=== PATIENT | male | born 1935 | race Caucasian/White ===

== ENCOUNTER → 2016-06-20 | Outpatient (CLI) | payer MEDICARE, BC ==
--- NOTE | 2016-06-21 08:12 | XR ---
EXAMINATION TYPE: XR chest 2V DATE OF EXAM: 06/20/2016 9:26 AM COMPARISON: 10/01/2014 HISTORY: 80-year-old male chronic cough TECHNIQUE: Frontal and lateral views FINDINGS: The cardiomediastinal silhouette, aorta, and pulmonary vasculature are within normal limits. Some str danica atelectasis at the lower lungs. Linear density at the left hilar region probably some scarring. Otherwise, lungs and pleural spaces are clear. IMPRESSION: No acute cardiopulmonary process.
== END | disposition home or self-care (01) ==
LOC: RADXRYALE 09:10
PROVIDERS: ATTEND Family Medicine
DX: R05 Cough (principal)
CPT/HCPCS: 71020

== ENCOUNTER 2016-07-01 10:56 | Inpatient (IN) | payer MEDICARE, BC ==
--- NOTE | 2016-07-01 11:41 | ED ---
General Adult HPI - General Chief complaint: Dizziness Stated complaint: chest pain,shaky, dizziness Time Seen by Provider: 07/01/16 11:06 Source: patient Mode of arrival: wheelchair Limitations: no limitations - History of Present Illness Initial comments: This patient is a 80-year-old man who presents to be evaluated for a feeling of dizziness and "feeling vibratey", and has been going on since this morning. Patient states that he has been under little bit of stress due to the patient's son moving in with him. The patient states that he usually takes his blood pressure medication first thing, then goes and takes a shower. Today he went into the shower before taking the medication and he noted that he was feeling somewhat off balance and also had a sensation like he was vibrating. He denies tanya chest pain, dyspnea, diaphoresis, nausea or vomiting. Patient denies any frankly strokelike symptoms, including no change in vision, speech or swallowing , no weakness or numbness. Onset/Timin -: hour(s) - Related Data Home Medications Medication Instructions Recorded Confirmed Aspirin 81 mg PO DAILY 10/16/14 07/01/16 Hydrochlorothiazide [Hydrodiuril] 25 mg PO QAM 10/16/14 07/01/16 Lansoprazole [Prevacid] 15 mg PO BID 10/16/14 07/01/16 Rosuvastatin Calcium [Crestor] 5 mg PO Q48H 10/16/14 07/01/16 Tamsulosin HCl [Flomax] 0.4 mg PO DAILY 10/16/14 07/01/16 amLODIPine [Norvasc] 2.5 mg PO HS 10/16/14 07/01/16 Previous Rx's Medication Instructions Recorded Clopidogrel [Plavix] 75 mg PO DAILY #90 tab 10/17/14 Allergies Allergy/AdvReac Type Severity Reaction Status Date / Time acetaminophen Allergy Unknown Verified 07/01/16 12:16 [From Darvocet-N 100] albuterol [From Ventolin HFA] Allergy Unknown Verified 07/01/16 12:16 amoxicillin trihydrate Allergy Itching Verified 07/01/16 12:16 [From Augmentin] atorvastatin calcium Allergy Unknown Verified 07/01/16 12:16 [From Lipitor] cephalexin monohydrate Allergy Nausea & Verified 07/01/16 12:16 [From Keflex] Vomiting codeine Allergy Unknown Verified 07/01/16 12:16 diazepam [From Valium] Allergy Unknown Verified 07/01/16 12:16 esomeprazole magnesium Allergy Unknown Verified 07/01/16 12:16 [From Nexium] guaifenesin [From Entex LA] Allergy Unknown Verified 07/01/16 12:16 hydromorphone HCl Allergy Nausea & Verified 07/01/16 12:16 [From Dilaudid] Vomiting metoclopramide [From Reglan] Allergy Unknown Verified 07/01/16 12:16 orphenadrine [From Norflex] Allergy Unknown Verified 07/01/16 12:16 phenylephrine [From Entex LA] Allergy Unknown Verified 07/01/16 12:16 phenylpropanolamine Allergy Unknown Verified 07/01/16 12:16 [From Entex LA] potassium clavulanate Allergy Itching Verified 07/01/16 12:16 [From Augmentin] potassium iodide Allergy Unknown Verified 07/01/16 12:16 propoxyphene napsylate Allergy Unknown Verified 07/01/16 12:16 [From Darvocet-N 100] Sulfa (Sulfonamide Allergy Nausea & Verified 07/01/16 12:16 Antibiotics) Vomiting tolmetin [From Tolectin] Allergy Unknown Verified 07/01/16 12:16 ANTIHISTAMINES AdvReac Unknown Uncoded 07/01/16 10:58 Review of Systems ROS Statement: Those systems with pertinent positive or pertinent negative responses have been documented in the HPI. ROS Other: All systems not noted in ROS Statement are negative. Constitutional: Denies: fever, chills, weakness Eyes: Denies: eye pain, vision change ENT: Denies: congestion Respiratory: Denies: cough, dyspnea Cardiovascular: Denies: chest pain, palpitations, orthopnea, edema Gastrointestinal: Denies: abdominal pain, nausea, vomiting Genitourinary: Denies: dysuria, hematuria Musculoskeletal: Denies: back pain Skin: Denies: rash Neurological: Denies: headache, weakness, numbness Psychiatric: Reports: anxiety Past Medical History Past Medical History: COPD, Hyperlipidemia, Hypertension History of Any Multi-Drug Resistant Organisms: None Reported Past Surgical History: Heart Catheterization With Stent Additional Past Surgical History / Comment(s): hemmorroids, blephplasty, left shoulder, cataract Past Psychological History: No Psychological Hx Reported Smoking Status: Never smoker Past Alcohol Use History: None Reported Past Drug Use History: None Reported - Past Family History Father Additional Family Medical History / Comment(s): emphysema General Exam Limitations: no limitations General appearance: alert, in no apparent distress Head exam: Present: atraumatic, normocephalic Eye exam: Present: normal appearance. Absent: scleral icterus, conjunctival injection ENT exam: Present: normal oropharynx Neck exam: Present: normal inspection Respiratory exam: Present: normal lung sounds bilaterally. Absent: respiratory distress, wheezes, rales, rhonchi, stridor Cardiovascular Exam: Present: normal rhythm, bradycardia (Heart rate is 56 at my exam), normal heart sounds. Absent: systolic murmur, diastolic murmur, rubs , gallop GI/Abdominal exam: Present: soft. Absent: distended, tenderness, guarding, rebound, mass, pulsatile mass, hernia Extremities exam: Present: normal inspection, normal capillary refill. Absent: pedal edema, calf tenderness Back exam: Present: normal inspection. Absent: CVA tenderness (R), CVA tenderness (L) Neurological exam: Present: alert, oriented X3, CN II-XII intact. Absent: motor sensory deficit Skin exam: Present: warm, dry, intact, normal color. Absent: rash, cyanosis, diaphoretic, erythema, petechiae, pallor, mottled Course Vital Signs 07/01/16 07/01/16 07/01/16 10:59 11:40 12:28 Temperature 97.2 F L Pulse Rate 59 L 42 L 47 L Respiratory 17 20 16 Rate Blood Pressure 135/64 142/74 159/98 O2 Sat by Pulse 97 95 98 Oximetry 07/01/16 13:24 Temperature 98 F Pulse Rate 52 L Respiratory 16 Rate Blood Pressure 158/81 O2 Sat by Pulse 98 Oximetry EKG Findings - EKG Results: EKG: interpreted by ERMD, sinus rhythm, normal QRS EKG shows: bradycardia (Rate approximate 47 bpm) - Blocks, [place], Hypertrophy, ST Abn: QRS axis and voltage: left axis deviation (-30 to -90) Repolarization changes or abnormalities: nonspecific abnormality, ST segment, and/or T wave Medical Decision Making - Lab Data Result diagrams: 07/01/16 11:16 07/01/16 11:16 Lab Results 07/01/16 07/01/16 07/01/16 Range/Units 11:16 11:16 11:16 WBC 8.2 (3.8-10.6) k/uL RBC 4.42 (4.30-5.90) m/uL Hgb 14.8 (13.0-17.5) gm/dL Hct 43.3 (39.0-53.0) % MCV 98.1 (80.0-100.0) fL MCH 33.4 (25.0-35.0) pg MCHC 34.1 (31.0-37.0) g/dL RDW 14.5 (11.5-15.5) % Plt Count 179 (150-450) k/uL Neutrophils % 70 % Lymphocytes % 22 % Monocytes % 6 % Eosinophils % 1 % Basophils % 1 % Neutrophils # 5.8 (1.3-7.7) k/uL Lymphocytes # 1.8 (1.0-4.8) k/uL Monocytes # 0.5 (0-1.0) k/uL Eosinophils # 0.1 (0-0.7) k/uL Basophils # 0.1 (0-0.2) k/uL Sodium 143 (137-145) mmol/L Potassium 3.8 (3.5-5.1) mmol/L Chloride 106 (98-107) mmol/L Carbon Dioxide 25 (22-30) mmol/L Anion Gap 12 mmol/L BUN 15 (9-20) mg/dL Creatinine 1.00 (0.66-1.25) mg/dL Est GFR (MDRD) Af Amer >60 (>60 ml/min/1.73 sqM) Est GFR (MDRD) Non-Af >60 (>60 ml/min/1.73 sqM) Glucose 83 (74-99) mg/dL Calcium 9.2 (8.4-10.2) mg/dL Magnesium 2.1 (1.6-2.3) mg/dL Total Bilirubin 1.1 (0.2-1.3) mg/dL AST 26 (17-59) U/L ALT 32 (21-72) U/L Alkaline Phosphatase 60 (38-126) U/L Troponin I 0.051 H* (0.000-0.034) ng/mL Total Protein 7.1 (6.3-8.2) g/dL Albumin 4.2 (3.5-5.0) g/dL Disposition Clinical Impression: Elevated troponin I level, Acute coronary syndrome Disposition: ADMITTED IP TO THIS HOSP Condition: Fair
[2016-07-01 12:16] LABS: Basophils # (A) 0.1 k/uL (0-0.2); Basophils % (A) 1 %; CH 33.3; CHCM 34.1; Eosinophils # (A) 0.1 k/uL (0-0.7); Eosinophils % (A) 1 %; HCT 43.3 % (39.0-53.0); HDW 2.28; HGB 14.8 gm/dL (13.0-17.5); Luc % (Auto) 1; Lymphocytes # (A) 1.8 k/uL (1.0-4.8); Lymphocytes % (A) 22 %; MCH 33.4 pg (25.0-35.0); MCHC 34.1 g/dL (31.0-37.0); MCV 98.1 fL (80.0-100.0); Monocytes # (A) 0.5 k/uL (0-1.0); Monocytes % (A) 6 %; Neutrophils # (A) 5.8 k/uL (1.3-7.7); Neutrophils % (A) 70 %; RBC 4.42 m/uL (4.30-5.90); RDW 14.5 % (11.5-15.5); WBC 8.2 k/uL (3.8-10.6); WBC (Perox) 8.06
[2016-07-01 12:24] LABS: ALT 32 U/L (21-72); AST 26 U/L (17-59); Alkaline Phosphatase 60 U/L (38-126); Anion Gap 12 mmol/L; Blood Urea Nitrogen 15 mg/dL (9-20); Calcium 9.2 mg/dL (8.4-10.2); Carbon Dioxide 25 mmol/L (22-30); Chloride 106 mmol/L (98-107); Glucose 83 mg/dL (74-99); Magnesium 2.1 mg/dL (1.6-2.3); Non-African American GFR(MDRD) >60 (>60 ml/min/1.73 sqM); Potassium 3.8 mmol/L (3.5-5.1); Sodium 143 mmol/L (137-145); Total Bilirubin 1.1 mg/dL (0.2-1.3); Total Protein 7.1 g/dL (6.3-8.2)
--- NOTE | 2016-07-01 12:45 | XR ---
EXAMINATION TYPE: XR chest 1V portable DATE OF EXAM: 07/01/2016 12:21 PM COMPARISON: Chest x-ray June 20, 2016. HISTORY: Chest pain and discomfort today. TECHNIQUE: Single AP portable frontal view of the chest is obtained. FINDINGS: There is no focal air space opacity, pleural effusion, or pneumothorax seen. The cardiac silhouette size is within normal limits with atherosclerotic thoracic aorta. The osseous structures are demineralized. IMPRESSION: No acute cardiopulmonary process. No significant change from prior.
[2016-07-01] MEDS ORDERED: NITROGLYCERIN SL TABS 0.4 MG TAB SUBLINGUAL PRN (13:44)
[2016-07-01] MEDS ORDERED: SODIUM CHLORIDE 0.9% 1,000 ML IV SCH (13:45)
[2016-07-01] MEDS ORDERED: ENOXAPARIN 80 MG/0.8 ML SYRINGE SQ STA (13:53)
[2016-07-01] MEDS ORDERED: NON-FORMULARY DRUG (Rosuvastatin Calcium [Crestor] 5 MG) PO SCH (14:00)
[2016-07-01 16:39] VITALS: BMI 25.2
[2016-07-01 17:01] LABS: Creatine Kinase MB 2.8 ng/mL (0.0-2.4)
[2016-07-01 17:07] LABS: Troponin I 0.038 ng/mL (0.000-0.034)
[2016-07-01] MEDS ORDERED: HEPARIN SODIUM,PORCINE 5,000 UNIT/ML 1 ML VIAL IV ONE (18:00)
[2016-07-01] MEDS ORDERED: HEPARIN SODIUM,PORCINE 5,000 UNIT/ML 1 ML VIAL IV PRN (18:00)
--- NOTE | 2016-07-01 18:27 | HP ---
DATE OF ADMISSION: DATE OF SERVICE: 07/01/2016 CHIEF COMPLAINT: Chest discomfort. HISTORY OF PRESENT ILLNESS: This 80-year-old gentleman with past history of chronic obstructive pulmonary disease, hypertension, hyperlipidemia, history of coronary artery disease and stent, history of hemorrhoids, being followed by Dr. Moore as well as Dr. 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 The patient apparently had some stress also because of son moving in with him and the patient's blood pressure has been fluctuating also. This morning the patient felt chest pressure in the lower part of the chest and subsequently patient felt shaking and the patient also had some heavy feeling in the legs and as well as head also and the patient came to [facility] and admitted for further evaluation and treatment. EKG showed ST-T changes with sinus bradycardia rate of 47 and the troponin is found to be 0.051 and patient admitted for further evaluation and treatment. There is no history of fevers, rigors, headache, loss of consciousness or seizures. PAST MEDICAL HISTORY: Chronic obstructive pulmonary disease, hypertension, hyperlipidemia, history of CAD and stent. Medications prior to admission include home medications are: 1. Norvasc 2.5 mg q.h.s. 2. Flomax 0.4 daily. 3. Crestor 5 mg q.48 hours. 4. Prevacid 15 mg p.o. t.i.d. 5. HydroDIURIL 25 mg q.a.m. 6. Plavix 75 mg p.o. daily. 7. Aspirin 81 mg daily. ALLERGIES: MULTIPLE ALLERGIES INCLUDING ACETAMINOPHEN, ALBUTEROL, AMOXICILLIN, ATORVASTATIN, CEPHALEXIN, CODEINE, DIAZEPAM, NEXIUM, GUAIFENESIN, HYDROMORPHONE, REGLAN, NORFLEX, ENTEX, POTASSIUM GLOBULIN, POTASSIUM CHLORIDE, DARVOCET 100, SULFA, FAMILY HISTORY: History of emphysema in the family. SOCIAL HISTORY: No history of smoking, no history of alcohol intake. REVIEW OF SYSTEMS: ENT: No diminished hearing. No diminished vision. CARDIOVASCULAR: As mentioned. RESPIRATORY: As mentioned earlier. GI: No nausea. : No dysuria. NERVOUS SYSTEM: No numbness or weakness. ALLERGY/IMMUNOLOGY: No asthma or hayfever. MUSCULOSKELETAL: As mentioned earlier. HEMATOLOGY/ONCOLOGY: No history of anemia. ENDOCRINE: No history of diabetes or hypothyroidism. CONSTITUTIONAL: As mentioned earlier. DERMATOLOGY: Negative. RHEUMATOLOGY: Negative. PSYCHIATRY: As mentioned earlier. PHYSICAL EXAMINATION: Alert and oriented x3. Pulse 57, blood pressure 170/81, respirations 20, temperature 97 degrees, pulse ox 95% on room air. HEENT: Conjunctivae normal. NECK: No jugular venous distention. CARDIOVASCULAR: S1 and S2, muffled. RESPIRATORY: Breath sounds diminished at the bases. No rhonchi, no crackles. ABDOMEN: Soft, nontender. No mass palpable. No hepatosplenomegaly. LEGS: No edema, no swelling. NERVOUS SYSTEM: Higher function as mentioned. Moves all four limbs. No focal motor deficits. LYMPHATIC: No lymphadenopathy in the neck, axillae or groin. SKIN: No ulcer, rash or bleeding. LABS: Troponin 0.051, albumin is 4.2. ASSESSMENT: 1. Chest pain, possible acute non-ST elevation myocardial infarction. 2. Troponin 0.051. 3. History of coronary artery disease and stent. 4. Hypertension. 5. Hyperlipidemia. 6. History of chronic obstructive pulmonary disease. 7. History of degenerative joint disease. 8. FULL CODE. RECOMMENDATIONS AND DISCUSSION: In this 80-year-old gentleman who presented with multiple complex medical issues, we will monitor the patient closely, continue the current medications. Continue symptomatic treatment. Continue with antiplatelet agents, continue symptomatic treatment. Continue with IV heparin. Otherwise, continue to follow closely with Cardiology. Guarded prognosis. Further recommendations to follow. MTDD
--- NOTE | 2016-07-01 18:39 | CONS ---
DATE OF CONSULTATION: CHIEF COMPLAINT: Chest pain. Larry is a 80-year-old gentleman with history of coronary artery disease, status post multivessel angioplasty who was doing quite a bit of physical work yesterday, cut quite a few trees and then came into the house and was trying to strengthen upper body with exercises, had what he describes as tingling and numbness and some weakness and some chest tightness, comes in admitted to hospital. EKG does not reveal ischemic changes, but the troponins have come back elevated suggestive of non-ST segment elevation myocardial infarction. His tropes are at 0.05 and 0.03. At the time of my evaluation, he is pain free and hemodynamically stable. He sees my associate, Dr. Weems in the office. Past medical history is significant for coronary artery disease, status post angioplasty, hypertension, dyslipidemia. Current medications include: 1. Aspirin. 2. Plavix that is on hold for a colonoscopy. 3. Norvasc. 4. Flomax. 5. Crestor. 6. Prevacid. 7. HydroDIURIL. He has multiple drug allergies. They are charted and I have reviewed them. FAMILY HISTORY: Negative for premature coronary artery disease. SOCIAL HISTORY: Negative for current smoking, ETOH abuse, or drug abuse. REVIEW OF SYSTEMS: HEENT: Unremarkable. CARDIAC: As described above. RESPIRATORY: As described above. GI: Negative. GENITOURINARY: Negative. ALLERGY/IMMUNOLOGY: Negative. SKIN: Negative. MUSCULOSKELETAL: Significant for arthritis. PSYCHOSOCIAL: Negative. ENDOCRINE: Negative. DERM: Negative. CONSTITUTIONAL: Negative. The rest of the system review is not relevant. On exam, comfortable at rest. Heart rate is 57 beats a minute, blood pressure 138/80, respiratory rate is 18. There is no jugular venous distention. Chest exam reveals good air entry bilaterally. Heart exam reveals first and second heart sounds. Systolic murmur at the apex. ABDOMEN: Soft. Exam of extremities did not reveal any edema. Peripheral pulses are felt. ASSESSMENT: 1. Non-ST segment elevation myocardial infarction. 2. Hypertension. 3. Coronary artery disease, status post angioplasty. PLAN: Will treat the patient with aspirin, Norvasc, intravenous heparin, schedule him for cath with Dr. Durham in the morning.
[2016-07-01 18:40] LABS: Basophils # (A) 0.1 k/uL (0-0.2); Basophils % (A) 1 %; CH 32.9; CHCM 33.5; Eosinophils # (A) 0.1 k/uL (0-0.7); Eosinophils % (A) 1 %; HCT 45.8 % (39.0-53.0); HDW 2.23; HGB 14.8 gm/dL (13.0-17.5); Luc # (Auto) 0.09; Luc % (Auto) 1; Lymphocytes # (A) 2.4 k/uL (1.0-4.8); Lymphocytes % (A) 25 %; MCH 31.8 pg (25.0-35.0); MCHC 32.3 g/dL (31.0-37.0); MCV 98.5 fL (80.0-100.0); Mean Platelet Volume 7.3; Monocytes # (A) 0.4 k/uL (0-1.0); Monocytes % (A) 5 %; Neutrophils # (A) 6.6 k/uL (1.3-7.7); Neutrophils % (A) 68 %; RBC 4.64 m/uL (4.30-5.90); RDW 14.3 % (11.5-15.5); WBC 9.7 k/uL (3.8-10.6); WBC (Perox) 10.17
[2016-07-01] MEDS ORDERED: HEPARIN SODIUM,PORCINE/D5W PMX 25,000 UNIT in DEXTROSE/WATER 1 500ML.BAG IV SCH (19:00)
[2016-07-01 19:13] LABS: INR 1.1 (<1.1); Partial Thromboplastin Time 26.4 sec (22.0-30.0); Prothrombin Time 11.4 sec (9.0-12.0)
[2016-07-01] MEDS ORDERED: amLODIPine 2.5 MG TAB PO SCH (21:00)
[2016-07-01] MEDS: TAMSULOSIN 0.4 MG CAP.ER.24H PO SCH (21:06)
[2016-07-02 01:03] LABS: Creatine Kinase MB 2.3 ng/mL (0.0-2.4); Troponin I 0.032 ng/mL (0.000-0.034)
[2016-07-02 06:49] LABS: Basophils # (A) 0.1 k/uL (0-0.2); Basophils % (A) 1 %; CH 32.8; CHCM 33.8; Eosinophils # (A) 0.1 k/uL (0-0.7); Eosinophils % (A) 2 %; HDW 2.22; HGB 14.1 gm/dL (13.0-17.5); Luc # (Auto) 0.14; Luc % (Auto) 2; Lymphocytes % (A) 39 %; MCH 31.9 pg (25.0-35.0); MCHC 32.8 g/dL (31.0-37.0); MCV 97.3 fL (80.0-100.0); Mean Platelet Volume 6.8; Monocytes # (A) 0.5 k/uL (0-1.0); Monocytes % (A) 7 %; Neutrophils # (A) 3.8 k/uL (1.3-7.7); Neutrophils % (A) 50 %; RBC 4.42 m/uL (4.30-5.90); RDW 14.4 % (11.5-15.5); WBC 7.6 k/uL (3.8-10.6); WBC (Perox) 8.08
[2016-07-02] MEDS: PANTOPRAZOLE 40 MG TABLET PO SCH (06:51)
[2016-07-02] MEDS: CLOPIDOGREL 75 MG TAB PO SCH (06:51)
[2016-07-02 07:12] LABS: Cholesterol 152 mg/dL (<200); HDL Cholesterol 55 mg/dL (40-60); Triglycerides 63 mg/dL (<150)
[2016-07-02] MEDS ORDERED: TAMSULOSIN 0.4 MG CAP.ER.24H PO SCH ×2 (09:00→21:00)
[2016-07-02] MEDS ORDERED: ASPIRIN 325 MG TAB PO SCH (09:00)
[2016-07-02] MEDS ORDERED: NITROGLYCERIN SL TABS 0.4 MG TAB SUBLINGUAL PRN (09:14)
[2016-07-02] MEDS ORDERED: ALPRAZolam 0.5 MG TAB PO PRN (09:14)
[2016-07-02] MEDS ORDERED: ATORVASTATIN 80 MG TAB PO STA (09:14)
[2016-07-02] MEDS ORDERED: ALPRAZolam 0.25 MG TAB PO PRN (09:14)
[2016-07-02] MEDS ORDERED: ASPIRIN 325 MG TAB PO STA (09:14)
[2016-07-02] MEDS ORDERED: SODIUM CHLORIDE 0.9% 1,000 ML in EMPTY BAG 1 BAG IV ONE (09:14)
[2016-07-02] MEDS ORDERED: VERAPAMIL 2.5 MG/ML 2 ML AMP ONE (10:59)
[2016-07-02] MEDS ORDERED: MIDAZOLAM 2 MG/2 ML VIAL ONE (10:59)
[2016-07-02] MEDS ORDERED: LIDOCAINE 2% INJ 20 MG/ML (20 ML MDV) ONE (10:59)
[2016-07-02] MEDS ORDERED: SODIUM CHLORIDE 0.9% (PF) 10 ML VIAL ONE (10:59)
[2016-07-02] MEDS ORDERED: diphenhydrAMINE 50 MG/ML 1 ML VIAL ONE (11:27)
[2016-07-02] MEDS ORDERED: IV FLUID CONTINUATION 300 ML IV ONE (11:29)
[2016-07-02] MEDS ORDERED: HEPARIN SODIUM 1,000 UNIT/ML VIAL ONE (11:42)
[2016-07-02] MEDS ORDERED: diphenhydrAMINE 50 MG/ML 1 ML VIAL IVP ONE (11:49)
[2016-07-02] MEDS: MIDAZOLAM 2 MG/2 ML VIAL IVP ONE ×2 (11:49→11:53)
[2016-07-02] MEDS ORDERED: LIDOCAINE 2% INJ 20 MG/ML SQ ONE (11:52)
[2016-07-02] MEDS: VERAPAMIL SYRINGE (5 MG/10 ML) INTRAARTER ONE ×2 (11:54→12:11)
[2016-07-02] MEDS ORDERED: HEPARIN SODIUM 1,000 UNIT/ML VIAL IV ONE (11:57)
[2016-07-02] MEDS ORDERED: IOHEXOL 350 MG/ML 100 ML BOTTLE INJ ONE (12:11)
[2016-07-02] MEDS ORDERED: RX INFO: IV CONTRAST WAS GIVEN 1 EACH MISC MISCELLANE PRN (12:30)
[2016-07-02] MEDS: ASPIRIN 325 MG TAB PO SCH (13:14)
[2016-07-02] MEDS: HYDROCHLOROTHIAZIDE 25 MG TAB PO SCH (13:15)
[2016-07-02] MEDS: SODIUM CHLORIDE 0.9% 1,000 ML IV SCH (13:15)
[2016-07-02] MEDS: TAMSULOSIN 0.4 MG CAP.ER.24H PO SCH (13:36)
--- NOTE | 2016-07-02 13:43 | PN ---
Mr. Guillen is comfortable, doing well today. Yesterday he had chest pain with activity, strongly suggestive of angina with troponin elevation. His vital signs are stable. S1, S2 heard normally. Lungs are clear. Abdomen and lower extremity exam unchanged. Plan is to proceed with coronary angiography and intervention. Risks, benefits, options and rationale were discussed with the patient and .
--- NOTE | 2016-07-02 14:57 | ECHOF ---
Referral Reason:ELEVATED TROPS MEASUREMENTS -------- HEIGHT: 165.1 cm WEIGHT: 70.3 kg BP: RVIDd: 3.3 cm (< 3.3) IVSd: 1.1 cm (0.6 - 1.1) LVIDd: 4.5 cm (3.9 - 5.3) LVPWd: 1.3 cm (0.6 - 1.1) IVSs: 1.4 cm LVIDs: 3.6 cm LVPWs: 1.2 cm LA Diam: 4.6 cm (2.7 - 3.8) LAESV Index (A-L): 41.98 ml/m Ao Diam: 3.5 cm (2.0 - 3.7) AV Cusp: 2.2 cm (1.5 - 2.6) LA Diam: 4.7 cm (2.7 - 3.8) MV EXCURSION: 23.948 mm (> 18.000) MV EF SLOPE: 105 mm/s (70 - 150) EPSS: 0.5 cm MV E Fidencio: 0.41 m/s MV DecT: 254 ms MV A Fidencio: 0.48 m/s MV E/A Ratio: 0.87 RAP: 5.00 mmHg RVSP: 34.35 mmHg FINDINGS -------- Sinus rhythm. This was a technically adequate study. Left ventricular wall thickness is normal. Overall left ventricular systolic function is mildly impaired with, an EF between 45 - 50 %. Apical anterior LV wall motion is hypokinetic. The right ventricle is normal in size. LA is severely dilated >40 ml/m2 The right atrium is moderately enlarged. There is mild aortic valve sclerosis. There is no evidence of aortic regurgitation. Mild mitral annular calcification present. Mild mitral regurgitation is present. Mild tricuspid regurgitation present. There is no evidence of pulmonary hypertension. The right ventricular systolic pressure, as measured by Doppler, is 34.35mmHg. There is no pulmonic regurgitation present. The aortic root size is normal. There is no pericardial effusion. CONCLUSIONS -------- 1. Left ventricular wall thickness is normal. 2. There is no evidence of pulmonary hypertension. 3. The right ventricular systolic pressure, as measured by Doppler, is 34.35mmHg. 4. Overall left ventricular systolic function is mildly impaired with, an EF between 45 - 50 %. 5. Apical anterior LV wall motion is hypokinetic. 6. LA is severely dilated >40 ml/m2 7. The right atrium is moderately enlarged. 8. There is mild aortic valve sclerosis. 9. Mild mitral annular calcification present. 10. Mild mitral regurgitation is present. 11. Mild tricuspid regurgitation present. OIL DIPPER: Kimberly Petit RDCS
--- NOTE | 2016-07-02 20:27 | PN ---
DATE OF SERVICE: 07/02/2016 This 80 -year-old gentleman who was admitted with chest pain and acute non-ST segment elevation myocardial infarction, underwent cardiac catheterization today by cardiology. Medical treatment was managed. Full reports pending at this time. No chest pain or palpitation. No fever. A 2-D echo with Doppler showed ejection fraction 40% with severely dilated LA also. On exam, alert and oriented x3. Pulse 58, blood pressure 140/60. Respiratory rate 16. Temperature normal. Pulse ox 97% on room air. HEENT: Conjunctivae normal. NECK: No jugular venous distention. CARDIOVASCULAR: S1, S2 muffled. RESPIRATORY: Breath sounds diminished in the bases. A few scattered rhonchi and crackles. ABDOMEN: Soft, nontender. LEGS: No edema. Nervous system: No focal deficits. Labs at this time shows CBC within normal limits. APTT noted. Troponin 0.038. ASSESSMENT: 1. Chest pain, possible acute non-ST elevation myocardial infarction present on admission, status post cardiac catheterization on medical treatment. 2. Troponin 0.051. 3. History of coronary artery disease and stent. 4. Hypertension. 5. Hyperlipidemia. 6. History of chronic obstructive pulmonary disease. 7. History of degenerative joint disease. 8. Congestive heart failure with chronic systolic dysfunction, ejection fraction 40% to 55% and LAC really dilated more than 40 mL. 9. FULL CODE. RECOMMENDATIONS AND DISCUSSION: In this 80-year-old gentleman who presented with multiple complex medical issues, we will monitor the patient closely. Continue the current medications. Continue symptomatic treatment. Optimize medical treatment. Continue the rest of the medications. See orders for further details. Increase ambulation per Cardiology. Guarded prognosis. Further recommendations to follow.
[2016-07-02] MEDS ORDERED: amLODIPine 5 MG TAB PO SCH (21:00)
[2016-07-03] MEDS: SODIUM CHLORIDE 0.9% 1,000 ML IV SCH (01:47)
[2016-07-03 02:15] LABS: Appearance,Urine Cloudy (Clear); Bilirubin,Urine Negative (Negative); Glucose,Urine (UA) Negative (Negative); Ketones,Urine Negative (Negative); Leukocyte Esterase,Urine Large (Negative); Mucus,Urine Rare /hpf; Nitrite,Urine Negative (Negative); Particle Count 2966; Protein,Urine Negative (Negative); RBC,Urine 4 /hpf (0-5); Specific Gravity,Urine 1.012 (1.001-1.035); UA Billing (MACRO vs. MICRO) MICRO; Urobilinogen,Urine <2.0 mg/dL (<2.0); WBC,Urine 76 /hpf (0-5)
[2016-07-03] MEDS: PANTOPRAZOLE 40 MG TABLET PO SCH (06:29)
[2016-07-03 06:40] LABS: Basophils % (A) 0 %; Eosinophils # (A) 0.1 k/uL (0-0.7); Eosinophils % (A) 1 %; HCT 44.3 % (39.0-53.0); HDW 2.24; HGB 14.8 gm/dL (13.0-17.5); Luc # (Auto) 0.13; Luc % (Auto) 1; Lymphocytes % (A) 23 %; MCH 32.5 pg (25.0-35.0); MCHC 33.4 g/dL (31.0-37.0); MCV 97.3 fL (80.0-100.0); Monocytes # (A) 0.6 k/uL (0-1.0); Monocytes % (A) 7 %; Neutrophils % (A) 68 %; RBC 4.55 m/uL (4.30-5.90); RDW 14.6 % (11.5-15.5); WBC 8.8 k/uL (3.8-10.6); WBC (Perox) 9.43
[2016-07-03 06:51] LABS: Anion Gap 12 mmol/L; Blood Urea Nitrogen 13 mg/dL (9-20); Calcium 9.1 mg/dL (8.4-10.2); Carbon Dioxide 22 mmol/L (22-30); Chloride 107 mmol/L (98-107); Glucose 95 mg/dL (74-99); Non-African American GFR(MDRD) >60 (>60 ml/min/1.73 sqM); Potassium 3.8 mmol/L (3.5-5.1); Sodium 141 mmol/L (137-145)
[2016-07-03] MEDS: CLOPIDOGREL 75 MG TAB PO SCH (07:56)
[2016-07-03] MEDS: HYDROCHLOROTHIAZIDE 25 MG TAB PO SCH (07:56)
[2016-07-03] MEDS: ASPIRIN 325 MG TAB PO SCH (07:58)
--- NOTE | 2016-07-03 08:07 | CC ---
DATE OF SERVICE: PROCEDURE: Left heart catheterization, coronary angiography and left ventriculography. PERFORMED BY: Dr. Liliana Durham. CLINICAL INFORMATION: Mr. Larry Guillen is a 80-year-old gentleman with a known history of coronary artery disease with previous multivessel PCI performed by Dr. Weems. In 2005 he had a stenting of LAD performed in 2 areas and in 2014, he had stenting of a major diagonal branch performed. He came into the hospital with exertional chest discomfort strongly suggestive of angina, had a mild troponin elevation and was evaluated and advised cardiac catheterization by Dr. Gerard. PROCEDURE NOTE: Under local anesthesia and strict aseptic precautions, a 6 Malagasy introducer was placed in the right radial artery. Using an Ultima one catheter, I performed selective coronary angiography of both coronary arteries and a pigtail catheter was used to perform an LV gram. The sheath was taken out and a TR band applied as per protocol and the patient was sent to the room in stable condition with a good saturation in the fingers of his right hand. Results were discussed with the patient and his and children. He tolerated the procedure uneventfully, without complications. CARDIAC CATHETERIZATION FINDINGS: The left ventricular end-diastolic pressure was 8 mmHg without any gradient across the aortic valve. CORONARY ANGIOGRAPHIC FINDINGS: RIGHT CORONARY ARTERY: Technically a dominant vessel. Does not have any significant obstructive disease in the proximal and midportion. Distally, there is a diffuse disease to a mild extent and then bifurcates into PDA and PLV, both of which supply a sizable amount of myocardium. Right coronary artery is therefore a dominant disease, with minor irregularities. No significant disease. LEFT MAIN CORONARY ARTERY: This is a disease-free vessel which bifurcates into LAD and circumflex. LEFT ANTERIOR DESCENDING CORONARY ARTERY: This vessel has stents in its proximal and midportion performed in 2005. The stented segment is widely patent with a brisk flow. The major diagonal comes off very proximally and this diagonal was also stented in 2014. The stented segment in the diagonal is widely patent. The proximal and mid LAD has stented segments which are widely patent. Distal LAD just before it curves over the apex, has 80 to 85% stenosis which represents a progression of disease. The amount of myocardium beyond the stenotic segment is somewhat small and the lesion is located at the very distal portion and the caliber of the vessel in this area is no more than 2 mm or less, is probably 2 mm or less. LEFT POSTERIOR CIRCUMFLEX CORONARY ARTERY: Nondominant, small-caliber, small in distribution limited circulation vessel; has minor irregularities. LEFT VENTRICULOGRAM: This was performed in 30 degree STINSON projection and revealed left ventricle is of normal size with mild anteroapical hypokinesia. Estimated ejection fraction of 45% without mitral regurgitation. FINAL IMPRESSION: This patient has widely patent stents in the proximal and mid LAD as well as in the major diagonal branch. The distal LAD in the distal one fourth as it curves over the apex to supply the inferoapical portion has 80% eccentric lesion, which represents progression of disease compared to the study from 2015. Circumflex is a nondominant and small. Right coronary artery is dominant. Large and disease-free. There is anteroapical hypokinesis. Estimated ejection fraction of 45% without mitral regurgitation. RECOMMENDATIONS: Findings were discussed with the patient and his family members. I am recommending aggressive medical therapy without any percutaneous intervention since the lesion is very distal and the amount of myocardium supplied by it is relatively small. He will be discharged tomorrow. We will increase the Norvasc. Add Imdur and patient was sent to his room in [facility] in stable condition. I expect that he will be discharged tomorrow.
--- NOTE | 2016-07-03 08:09 | LTR ---
July 02, 2016 RE: WilmerEleuterioyd Aureliano Dear Dr. Moore: Thank you for allowing me to participate in the care of Mr. Guillen. This gentleman presented with exertional chest pain and a mild troponin elevation. Cardiac cath revealed that the stented segment in LAD and diagonal were patent, but there was a progression of disease in the distal LAD for which I am recommending medical therapy. I will discharge him tomorrow and we will pursue medical therapy with increase in Norvasc and addition of Imdur. Thank you for your referral. Please do call for questions. With kindest regards, Sincerely, STEPHENIE BANUELOS MD
[2016-07-03 08:13] VITALS: RESP 14
[2016-07-03] MEDS ORDERED: ISOSORBIDE MONONITRATE ER 30 MG TAB.ER.24H PO SCH (09:00)
[2016-07-03 11:40] VITALS: BP 94/53; PULSE 94; TEMP 96.4
--- NOTE | 2016-07-03 15:02 | PN ---
Mr. Guillen underwent a cardiac cath yesterday, which revealed distal LAD disease. I discussed again the findings with the patient and , recommended continued medical therapy, added Imdur and a small dose of Norvasc, resting heart rate is in the low 60s. We therefore defer beta blockers. There was some oozing from the right radial cath site, but now the hemostasis is excellent. The pulse is very good. Site is clean and dry. He can be discharged and he will see Dr. Weems in the office in one week. Vital signs are stable. S1, S2 heard normally. Lungs reveal decent air entry. Abdomen and lower extremity exam is unchanged.
--- NOTE | 2016-07-04 13:35 | DS ---
DATE OF ADMISSION: 07/02/2016 DATE OF DISCHARGE: 07/03/2016 FINAL DIAGNOSES: 1. Chest pain, possible acute non-ST segment elevation myocardial infarction present on admission, status post cardiac catheterization on medical treatment. 2. Troponin 0.051. 3. History of coronary artery disease and stent. 4. Relative hypotension. 5. History of hypertension. 6. Hyperlipidemia. 7. History of chronic obstructive pulmonary disease. 8. History of degenerative joint disease. 9. History of congestive heart failure with chronic systolic dysfunction, ejection fraction 40% to 45%. 10. LA dilated up to 40 mm. 11. FULL CODE. DISCHARGE DISPOSITION: The patient will be discharged in stable condition with guarded prognosis. Discharge cleared by Dr. Durham. HISTORY OF PRESENT ILLNESS: This 74-year-old gentleman with a past medical history of chest pain and possible acute non-ST elevation myocardial infarction, and medical treatment. Cardiac catheterization was done by Dr. Liliana Durham which showed widely patent stents in the proximal and mid LAD as well as major diagonal branch. Distal LAD in the distal one fourth was found to have 80% eccentric lesion which represents progression of the disease. Medical treatment was recommended and please refer to Dr. Liliana Durham's full report for further details. On exam, vitals are stable. CARDIOVASCULAR SYSTEM: S1, S2 muffled. Abdomen soft. Central nervous system: No focal deficits. DISCHARGE ADVICE AND MEDICATIONS: 1. Diet is cardiac. 2. Activity limited until follow-up. 3. Follow-up with Dr. Rosalio Moore in 1 to 2 days. 4. Follow up with Dr. Weems as advised. 5. Aspirin 81 mg p.o. daily. 6. Plavix 75 mg p.o. daily. 7. Hydrodiuril 25 mg, hold for now. 8. Imdur ER 30 mg p.o. daily. 9. Imdur 15 mg p.o. daily. 10. Prevacid 50 mg p.o. b.i.d. 11. Nitrostat 0.5 mg p.r.n. 12. Crestor 5 mg q.48 hours. 13. Flomax 0.4 daily. 14. Norvasc 2.5 mg q.h.s.
== END 2016-07-03 14:00 | disposition home or self-care (01) | DRG 281 ==
LOC: EC 10:56 → 6SEL 13:50 → OBSVTOIN 07-02 17:29
PROVIDERS: ADMIT Internal Medicine; ATTEND Internal Medicine
PROC: B2111ZZ Fluoroscopy of Multiple Coronary Arteries using Low Osmolar Contrast (ICD-10-PCS; 2016-07-02)
PROC: B2151ZZ Fluoroscopy of Left Heart using Low Osmolar Contrast (ICD-10-PCS; 2016-07-02)
PROC: 4A023N7 Measurement of Cardiac Sampling and Pressure, Left Heart, Percutaneous Approach (ICD-10-PCS; principal; 2016-07-02 11:30)
DX: I21.4 Non-ST elevation (NSTEMI) myocardial infarction (principal); I50.22 Chronic systolic (congestive) heart failure; J44.9 Chronic obstructive pulmonary disease, unspecified; I11.0 Hypertensive heart disease with heart failure; M19.90 Unspecified osteoarthritis, unspecified site; I25.10 Atherosclerotic heart disease of native coronary artery without angina pectoris; E78.5 Hyperlipidemia, unspecified; Z98.49 Cataract extraction status, unspecified eye; Z95.5 Presence of coronary angioplasty implant and graft; Z79.82 Long term (current) use of aspirin; Z79.02 Long term (current) use of antithrombotics/antiplatelets; Z79.899 Other long term (current) drug therapy
CPT/HCPCS: 36415; 71010; 80048; 80053; 80061; 81001; 82550; 82553; 83735; 84484; 85025; 85610; 85730; 93005; 93306; 93458; 96365; 96366; 96372; 99285

== ENCOUNTER 2016-08-12 08:08 | Day surgery (SDC) | payer MEDICARE, BC ==
[2016-08-10 11:28] VITALS: BMI 25.0
[2016-08-12 09:06] VITALS: TEMP 97.9
[2016-08-12] MEDS ORDERED: LIDOCAINE 1% 20 ML VIAL (10MG/ML) FOR IV START INTRADERMA ONE (09:12)
[2016-08-12] MEDS: LACTATED RINGERS 1,000 ML IV SCH ×2 (09:12→09:50)
[2016-08-12] MEDS ORDERED: PROPOFOL 10 MG/ML 20 ML VIAL IV ONE (09:52)
--- NOTE | 2016-08-12 10:09 | P.PCN ---
Date of Procedure: 08/12/16 Procedure(s) Performed: BRIEF HISTORY: Patient is a 81-year-old pleasant 8 male, scheduled for an elective colonoscopy as a part of evaluation of prior history of colon polyps. His last colonoscopy was in 2008. PROCEDURE PERFORMED: Colonoscopy with biopsy. PREOPERATIVE DIAGNOSIS: History of colon polyps. IV sedation per Anesthesia. PROCEDURE: After informed consent was obtained, the patient, was brought into the endoscopy unit. IV conscious sedation was administered by Anesthesia under continuous monitoring. Initially the Olympus CF-160 flexible video colonoscope was then inserted in the rectum, gradually advanced into the cecum without any difficulty. Careful examination was performed as the scope was gradually being withdrawn. Ileocecal valve and the appendiceal orifice were visualized and appeared normal. Prep was excellent. Mucosa of the cecum, ascending colon, transverse colon, descending colon, sigmoid colon, and rectum appeared normal. In the distal rectum there was a 5 mm polyp that was removed by biopsy. Scattered sigmoid diverticulosis seen. Retroflexion was performed in the rectum and no lesions were seen. The patient tolerated the procedure well. IMPRESSION: Scattered sigmoid diverticulosis. 5 mm distal rectal polyp status post removal by biopsy. RECOMMENDATIONS: Findings of this examination were discussed with the patient as well as his family. He was advised to follow with the biopsy results. If the biopsy shows a tubular adenoma he can have a repeat colonoscopy in 5 years.
[2016-08-12] MEDS ORDERED: LACTATED RINGERS 1,000 ML IV ONE (10:10)
[2016-08-12 10:15] VITALS: RESP 16
[2016-08-12 10:31] VITALS: BP 151/85; PULSE 43
== END 2016-08-12 10:47 | disposition home or self-care (01) ==
LOC: ORWHC2ENDO 08:08
PROVIDERS: ATTEND Internal Medicine Gastroenterology
DX: Z12.11 Encounter for screening for malignant neoplasm of colon (principal); D12.8 Benign neoplasm of rectum; K57.30 Diverticulosis of large intestine without perforation or abscess without bleeding; Z86.010 Personal history of colon polyps; I25.10 Atherosclerotic heart disease of native coronary artery without angina pectoris; I10 Essential (primary) hypertension; E78.5 Hyperlipidemia, unspecified; N40.0 Benign prostatic hyperplasia without lower urinary tract symptoms; I25.2 Old myocardial infarction; K21.9 Gastro-esophageal reflux disease without esophagitis; Z95.5 Presence of coronary angioplasty implant and graft; Z79.02 Long term (current) use of antithrombotics/antiplatelets; Z79.82 Long term (current) use of aspirin
CPT/HCPCS: 88305; 45380; J2704

== ENCOUNTER 2016-12-15 09:22 | Inpatient (IN) | payer MEDICARE, BC ==
[2016-12-15] MEDS ORDERED: SODIUM CHLORIDE 0.9% 500 ML IV STA (09:44)
[2016-12-15] MEDS ORDERED: ONDANSETRON 4 MG/2 ML VIAL IVP STA (09:44)
--- NOTE | 2016-12-15 10:12 | ED ---
General Adult HPI <Pillo Vaughn J - Last Filed: 12/15/16 12:09> - General Source: patient, RN notes reviewed Mode of arrival: wheelchair Limitations: no limitations <Tremaine Castillo - Last Filed: 12/15/16 12:39> - General Chief complaint: Extremity Problem,Nontraumatic Stated complaint: left arm numbness Time Seen by Provider: 12/15/16 09:35 - History of Present Illness Initial comments: Patient 81-year-old male who presents emergency room today with a chief complaint of numbness tingling sensation to the fourth and fifth digits of the left hand. He does admit that he was outside try to order a saw blade office phone. He states started to feel this numbness tingling sensation approximate hour ago. He states been radiating up his arm felt nauseated lightheaded. States he went into his house to have bowel movement. He states still feeling nauseated. States that the numbness tingling sensation is less than what was seems to be improving but still expresses pain radiate up into the left arm. He does admit to a history of sleeping on his hand and at times has felt symptoms similar to this when he wakes up. Patient states still feeling somewhat tired and lightheaded. Denies any other complaints symptoms at this time. Patient denies any recent fever, chills, shortness of breath, chest pain, back pain, abdominal pain, vomiting, dysuria or hematuria, constipation, headaches or visual changes, or any other complaints. (Tremaine Castillo) - Related Data Home Medications Medication Instructions Recorded Confirmed Aspirin 81 mg PO DAILY 10/16/14 12/15/16 Lansoprazole [Prevacid] 15 mg PO BID 10/16/14 12/15/16 Rosuvastatin Calcium [Crestor] 5 mg PO Q48H 10/16/14 12/15/16 Tamsulosin HCl [Flomax] 0.4 mg PO DAILY 10/16/14 12/15/16 amLODIPine [Norvasc] 2.5 mg PO HS 10/16/14 12/15/16 Hydrochlorothiazide 25 mg PO DAILY PRN 08/10/16 12/15/16 Previous Rx's Medication Instructions Recorded Clopidogrel [Plavix] 75 mg PO DAILY #90 tab 10/17/14 Nitroglycerin Sl Tabs [Nitrostat] 0.4 mg SUBLINGUAL Q5M PRN #20 tab 07/03/16 Allergies Allergy/AdvReac Type Severity Reaction Status Date / Time albuterol [From Ventolin HFA] Allergy Unknown Verified 12/15/16 10:44 amoxicillin trihydrate Allergy Itching/PASSED Verified 12/15/16 10:44 [From Augmentin] OUT atorvastatin calcium Allergy EYE "HAD Verified 12/15/16 10:44 [From Lipitor] BLOOD IN IT" cephalexin monohydrate Allergy Nausea & Verified 12/15/16 10:44 [From Keflex] Vomiting codeine Allergy SEVERE Verified 12/15/16 10:44 HEADACHE diazepam [From Valium] Allergy Unknown Verified 12/15/16 10:44 esomeprazole magnesium Allergy SEVERE Verified 12/15/16 10:44 [From Nexium] HEADACHE guaifenesin [From Entex LA] Allergy Unknown Verified 12/15/16 10:44 hydromorphone HCl Allergy Nausea & Verified 12/15/16 10:44 [From Dilaudid] Vomiting iodine Allergy Unknown Verified 12/15/16 10:44 metoclopramide [From Reglan] Allergy Unknown Verified 12/15/16 10:44 orphenadrine [From Norflex] Allergy Unknown Verified 12/15/16 10:44 phenylephrine [From Entex LA] Allergy Unknown Verified 12/15/16 10:44 phenylpropanolamine Allergy Unknown Verified 12/15/16 10:44 [From Entex LA] potassium clavulanate Allergy Itching/PASSED Verified 12/15/16 10:44 [From Augmentin] OUT potassium iodide Allergy Unknown Verified 12/15/16 10:44 propoxyphene Allergy "TONGUE Verified 12/15/16 10:44 [From Darvocet-N] PEELED" Sulfa (Sulfonamide Allergy Nausea & Verified 12/15/16 10:44 Antibiotics) Vomiting tolmetin [From Tolectin] Allergy Unknown Verified 12/15/16 10:44 ANTIHISTAMINES AdvReac UNABLE TO Uncoded 12/15/16 09:32 URINATE Review of Systems ROS Other: All systems not noted in ROS Statement are negative. <Pillo Vaughn - Last Filed: 12/15/16 12:09> ROS Other: All systems not noted in ROS Statement are negative. <Tremaine Castillo - Last Filed: 12/15/16 12:39> ROS Statement: Those systems with pertinent positive or pertinent negative responses have been documented in the HPI. Past Medical History Past Medical History: Coronary Artery Disease (CAD), Hyperlipidemia, Hypertension, Myocardial Infarction (ME) Additional Past Medical History / Comment(s): 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 "LOOKS LIKE A STEAMED UP WINDOW" ALL THE TIME, POST OP LENS REPLACEMENT Last Myocardial Infarction Date:: 06/2016 History of Any Multi-Drug Resistant Organisms: None Reported Past Surgical History: Heart Catheterization, Heart Catheterization With Stent, Orthopedic Surgery Additional Past Surgical History / Comment(s): hemmorroids, blephplasty, left shoulder, agustin cataract with lens replacement, stents x5, sinus sx Past Anesthesia/Blood Transfusion Reactions: Previous Problems w/ Anesthesia Additional Past Anesthesia/Blood Transfusion Reaction / Comment(s): had hard time waking up post op x1 Date of Last Stent Placement:: 2014 Past Psychological History: No Psychological Hx Reported Smoking Status: Never smoker Past Alcohol Use History: None Reported Past Drug Use History: None Reported - Past Family History Father Additional Family Medical History / Comment(s): emphysema <Tremaine Castillo - Last Filed: 12/15/16 12:39> General Exam <Pillo Vaughn - Last Filed: 12/15/16 12:09> Limitations: no limitations <Tremaine Castillo - Last Filed: 12/15/16 12:39> - General Exam Comments Initial Comments: General: The patient is awake and alert, in no distress, and does not appear acutely ill. Eye: Pupils are equal, round and reactive to light, extra-ocular movements are intact. No nystagmus. There is normal conjunctiva bilaterally. No signs of icterus. Ears, nose, mouth and throat: There are moist mucous membranes and no oral lesions. Neck: The neck is supple, there is no tenderness or JVD. Cardiovascular: There is a regular rate and rhythm. No murmur, rub or gallop is appreciated. Respiratory: Lungs are clear to auscultation, respirations are non-labored, breath sounds are equal. No wheezes, stridor, rales, or rhonchi. Gastrointestinal: Soft, non-distended, non-tender abdomen without masses or organomegaly noted. There is no rebound or guarding present. No CVA tenderness. Bowel sounds are unremarkable. Musculoskeletal: Normal ROM, no tenderness. Strength 5/5. Sensation intact. Pulses equal bilaterally 2+. Neurological: A&O x 3. CN II-XII intact, There are no obvious motor or sensory deficits. Coordination appears grossly intact. Speech is normal. Skin: Skin is warm and dry and no rashes or lesions are noted. Psychiatric: Cooperative, appropriate mood & affect, normal judgment. (Tremaine Castillo) Medical Decision Making - Lab Data Result diagrams: 12/15/16 10:10 12/15/16 10:10 <Pillo Vaughn - Last Filed: 12/15/16 12:09> - Lab Data Result diagrams: 12/15/16 10:10 12/15/16 10:10 <Tremaine Castillo - Last Filed: 12/15/16 12:39> - Medical Decision Making The patient was seen and examined. All diagnostics were reviewed. The case is discussed with the PA and I agree with the findings as documented. Case will be discussed with internal medicine and patient will be admitted for further treatment. (Pillo Vaughn) Patient's CT of the head does show 1. Subtle subcortical ischemic area of indeterminate age of the right centrum; semiovale. Patient labs been reviewed. Patient is symptomatic at this time. He states all symptoms have resolved feeling better here in emergency room. Patient will be admitted for further observation with neurology consult. (Tremaine Castillo) - Lab Data Lab Results 12/15/16 12/15/16 12/15/16 Range/Units 10:10 10:10 10:10 WBC 7.3 (3.8-10.6) k/uL RBC 4.75 (4.30-5.90) m/uL Hgb 15.2 (13.0-17.5) gm/dL Hct 45.6 (39.0-53.0) % MCV 96.0 (80.0-100.0) fL MCH 32.1 (25.0-35.0) pg MCHC 33.4 (31.0-37.0) g/dL RDW 14.1 (11.5-15.5) % Plt Count 197 (150-450) k/uL Neutrophils % 64 % Lymphocytes % 26 % Monocytes % 6 % Eosinophils % 2 % Basophils % 1 % Neutrophils # 4.7 (1.3-7.7) k/uL Lymphocytes # 1.9 (1.0-4.8) k/uL Monocytes # 0.5 (0-1.0) k/uL Eosinophils # 0.2 (0-0.7) k/uL Basophils # 0.0 (0-0.2) k/uL PT (9.0-12.0) sec INR (<1.2) APTT (22.0-30.0) sec Sodium 142 (137-145) mmol/L Potassium 4.0 (3.5-5.1) mmol/L Chloride 107 (98-107) mmol/L Carbon Dioxide 24 (22-30) mmol/L Anion Gap 11 mmol/L BUN 20 (9-20) mg/dL Creatinine 0.92 (0.66-1.25) mg/dL Est GFR (MDRD) Af Amer >60 (>60 ml/min/1.73 sqM) Est GFR (MDRD) Non-Af >60 (>60 ml/min/1.73 sqM) Glucose 103 H (74-99) mg/dL Calcium 9.3 (8.4-10.2) mg/dL Magnesium 2.0 (1.6-2.3) mg/dL Total Bilirubin 1.0 (0.2-1.3) mg/dL AST 25 (17-59) U/L ALT 34 (21-72) U/L Alkaline Phosphatase 61 (38-126) U/L Total Creatine Kinase 144 (55-170) U/L CK-MB (CK-2) 2.6 H* (0.0-2.4) ng/mL CK-MB (CK-2) Rel Index 1.8 Troponin I <0.012 (0.000-0.034) ng/mL Total Protein 7.1 (6.3-8.2) g/dL Albumin 4.3 (3.5-5.0) g/dL 12/15/16 Range/Units 10:10 WBC (3.8-10.6) k/uL RBC (4.30-5.90) m/uL Hgb (13.0-17.5) gm/dL Hct (39.0-53.0) % MCV (80.0-100.0) fL MCH (25.0-35.0) pg MCHC (31.0-37.0) g/dL RDW (11.5-15.5) % Plt Count (150-450) k/uL Neutrophils % % Lymphocytes % % Monocytes % % Eosinophils % % Basophils % % Neutrophils # (1.3-7.7) k/uL Lymphocytes # (1.0-4.8) k/uL Monocytes # (0-1.0) k/uL Eosinophils # (0-0.7) k/uL Basophils # (0-0.2) k/uL PT 11.8 (9.0-12.0) sec INR 1.2 H (<1.2) APTT 24.6 (22.0-30.0) sec Sodium (137-145) mmol/L Potassium (3.5-5.1) mmol/L Chloride (98-107) mmol/L Carbon Dioxide (22-30) mmol/L Anion Gap mmol/L BUN (9-20) mg/dL Creatinine (0.66-1.25) mg/dL Est GFR (MDRD) Af Amer (>60 ml/min/1.73 sqM) Est GFR (MDRD) Non-Af (>60 ml/min/1.73 sqM) Glucose (74-99) mg/dL Calcium (8.4-10.2) mg/dL Magnesium (1.6-2.3) mg/dL Total Bilirubin (0.2-1.3) mg/dL AST (17-59) U/L ALT (21-72) U/L Alkaline Phosphatase (38-126) U/L Total Creatine Kinase (55-170) U/L CK-MB (CK-2) (0.0-2.4) ng/mL CK-MB (CK-2) Rel Index Troponin I (0.000-0.034) ng/mL Total Protein (6.3-8.2) g/dL Albumin (3.5-5.0) g/dL Disposition <Pillo Vaughn - Last Filed: 12/15/16 12:09> Time of Disposition: 12:14 <Tremaine Castillo - Last Filed: 12/15/16 12:39> Clinical Impression: CVA (cerebral vascular accident) Disposition: ADMITTED IP TO THIS [facility] Condition: Stable Referrals: McPhilimy,Rosalio, DO [Primary Care Provider] - 1-2 days
[2016-12-15 10:24] LABS: Basophils % (A) 1 %; CH 32.9; CHCM 34.4; Eosinophils # (A) 0.2 k/uL (0-0.7); Eosinophils % (A) 2 %; HCT 45.6 % (39.0-53.0); HDW 2.24; HGB 15.2 gm/dL (13.0-17.5); Luc # (Auto) 0.14; Luc % (Auto) 2; Lymphocytes # (A) 1.9 k/uL (1.0-4.8); Lymphocytes % (A) 26 %; MCH 32.1 pg (25.0-35.0); MCHC 33.4 g/dL (31.0-37.0); Mean Platelet Volume 7.7; Monocytes # (A) 0.5 k/uL (0-1.0); Monocytes % (A) 6 %; Neutrophils # (A) 4.7 k/uL (1.3-7.7); Neutrophils % (A) 64 %; RBC 4.75 m/uL (4.30-5.90); RDW 14.1 % (11.5-15.5); WBC 7.3 k/uL (3.8-10.6)
[2016-12-15 10:37] LABS: INR 1.2 (<1.2); Partial Thromboplastin Time 24.6 sec (22.0-30.0); Prothrombin Time 11.8 sec (9.0-12.0)
[2016-12-15 11:02] LABS: Creatine Kinase 144 U/L (55-170)
[2016-12-15 11:14] LABS: ALT 34 U/L (21-72); AST 25 U/L (17-59); Alkaline Phosphatase 61 U/L (38-126); Anion Gap 11 mmol/L; Blood Urea Nitrogen 20 mg/dL (9-20); Calcium 9.3 mg/dL (8.4-10.2); Carbon Dioxide 24 mmol/L (22-30); Chloride 107 mmol/L (98-107); Glucose 103 mg/dL (74-99); Non-African American GFR(MDRD) >60 (>60 ml/min/1.73 sqM); Sodium 142 mmol/L (137-145); Total Protein 7.1 g/dL (6.3-8.2)
[2016-12-15 11:15] LABS: Troponin I <0.012 ng/mL (0.000-0.034)
[2016-12-15 11:19] LABS: Creatine Kinase MB 2.6 ng/mL (0.0-2.4)
--- NOTE | 2016-12-15 11:22 | CT ---
EXAMINATION TYPE: CT brain wo con DATE OF EXAM: 12/15/2016 COMPARISON: 11/12/2009 INDICATION: Lt arm numbness, tingling fingers DLP: 1121 mGycm, Automated exposure control for dose reduction was used. CONTRAST: None CT of the brain is performed utilizing 3 mm thick sections through the posterior fossa and 3 mm thick sections through the remaining calvarium. Study is performed within 24 hours of arrival to the hosp ital. No abnormal hyperdensity is present to suggest an acute intracranial hemorrhage. No mass lesion is evident. No acute infarcts are evident. Some subtle right centrum semiovale periventricular white matter hypod ensity is present which can be related to chronic appearing microvascular ischemic change. Subacute s ubcortical infarct is not excluded. This is not evident on the 11/12/2009 comparison study. Ventricles and sulci are appropriate for the patient age. Paranasal sinuses and mastoid air cells within the [id number] are clear. IMPRESSIONS: 1. Subtle subcortical ischemic area of indeterminate age right centrum semiovale. MRI without contr ast could be performed for closer evaluation of the age of this ischemic appearing area.
--- NOTE | 2016-12-15 11:25 | XR ---
EXAMINATION TYPE: XR chest 2V DATE OF EXAM: 12/15/2016 COMPARISON: 07/01/2016 INDICATION: Chest pain TECHNIQUE: Frontal and lateral views of the chest are obtained. FINDINGS: The heart size is normal. The pulmonary vasculature is normal. The lungs are clear. IMPRESSION: 1. No acute pulmonary process.
[2016-12-15] MEDS ORDERED: ASPIRIN 81 MG PO STA (12:12)
[2016-12-15 12:20] VITALS: RESP 18
[2016-12-15] MEDS ORDERED: SODIUM CHLORIDE 0.9% 1,000 ML IV SCH (12:45)
[2016-12-15 13:55] VITALS: BMI 25.3
[2016-12-15] MEDS ORDERED: NITROGLYCERIN SL TABS 0.4 MG TAB SUBLINGUAL PRN (14:28)
--- NOTE | 2016-12-15 15:52 | P.HPIM ---
History of Present Illness H&P Date: 12/15/16 Chief Complaint: Left hand numbness Is a 81-year-old gentleman with history of CAD comes into the hospital with an episode of left forearm numbness to the fourth and fifth digits. Patient states that he puts a lot of pressure on his elbow thought that it was tingling from compression of the nerve. Thereafter patient went to use the restroom noted diffuse weakness while attempting a bowel movement and had generalized weakness and was also slightly diaphoretic. Patient came in the hospital for evaluation of stroke Initially a computed tomography scan of the brain was done, which showed an infarct in the right centrum semiovale ovale. Denies having any complaints of generalized weakness and headaches change in vision nausea vomiting any focal weakness at this time Patient takes aspirin 81 and high-dose statin for CAD already States that he has been having some intermittent episodes of dizziness in the morning after his blood pressure medication however it resolves once patient takes time to change positions Review of Systems All systems: negative (Noted in HPI) Past Medical History Past Medical History: Coronary Artery Disease (CAD), GERD/Reflux, Hyperlipidemia , Hypertension Additional Past Medical History / Comment(s): 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 "LOOKS LIKE A STEAMED UP WINDOW" ALL THE TIME, POST OP LENS REPLACEMENT Last Myocardial Infarction Date:: 06/2016 History of Any Multi-Drug Resistant Organisms: None Reported Past Surgical History: Heart Catheterization, Heart Catheterization With Stent, Orthopedic Surgery Additional Past Surgical History / Comment(s): hemmorroids, rotater cuff left shoulder, agustin cataract with lens replacement, stents x5, sinus sx Past Anesthesia/Blood Transfusion Reactions: Previous Problems w/ Anesthesia Additional Past Anesthesia/Blood Transfusion Reaction / Comment(s): had hard time waking up post op x1 Date of Last Stent Placement:: 2014 Past Psychological History: No Psychological Hx Reported Smoking Status: Never smoker Past Alcohol Use History: None Reported Past Drug Use History: None Reported - Past Family History Father Additional Family Medical History / Comment(s): emphysema Medications and Allergies Home Medications Medication Instructions Recorded Confirmed Type Aspirin 81 mg PO DAILY 10/16/14 12/15/16 History Lansoprazole [Prevacid] 15 mg PO DAILY 10/16/14 12/15/16 History Rosuvastatin Calcium [Crestor] 5 mg PO Q48H 10/16/14 12/15/16 History Tamsulosin HCl [Flomax] 0.4 mg PO DAILY 10/16/14 12/15/16 History amLODIPine [Norvasc] 2.5 mg PO HS 10/16/14 12/15/16 History Hydrochlorothiazide 25 mg PO DAILY PRN 08/10/16 12/15/16 History Allergies Allergy/AdvReac Type Severity Reaction Status Date / Time albuterol [From Ventolin HFA] Allergy Unknown Verified 12/15/16 10:44 amoxicillin trihydrate Allergy Itching/PASSED Verified 12/15/16 10:44 [From Augmentin] OUT atorvastatin calcium Allergy EYE "HAD Verified 12/15/16 10:44 [From Lipitor] BLOOD IN IT" cephalexin monohydrate Allergy Nausea & Verified 12/15/16 10:44 [From Keflex] Vomiting codeine Allergy SEVERE Verified 12/15/16 10:44 HEADACHE diazepam [From Valium] Allergy Unknown Verified 12/15/16 10:44 esomeprazole magnesium Allergy SEVERE Verified 12/15/16 10:44 [From Nexium] HEADACHE guaifenesin [From Entex LA] Allergy Unknown Verified 12/15/16 10:44 hydromorphone HCl Allergy Nausea & Verified 12/15/16 10:44 [From Dilaudid] Vomiting iodine Allergy Unknown Verified 12/15/16 10:44 metoclopramide [From Reglan] Allergy Unknown Verified 12/15/16 10:44 orphenadrine [From Norflex] Allergy Unknown Verified 12/15/16 10:44 phenylephrine [From Entex LA] Allergy Unknown Verified 12/15/16 10:44 phenylpropanolamine Allergy Unknown Verified 12/15/16 10:44 [From Entex LA] potassium clavulanate Allergy Itching/PASSED Verified 12/15/16 10:44 [From Augmentin] OUT potassium iodide Allergy Unknown Verified 12/15/16 10:44 propoxyphene Allergy "TONGUE Verified 12/15/16 10:44 [From Darvocet-N] PEELED" Sulfa (Sulfonamide Allergy Nausea & Verified 12/15/16 10:44 Antibiotics) Vomiting tolmetin [From Tolectin] Allergy Unknown Verified 12/15/16 10:44 ANTIHISTAMINES AdvReac UNABLE TO Uncoded 12/15/16 09:32 URINATE Physical Exam Vitals: Vital Signs Temp Pulse Resp BP Pulse Ox 12/15/16 12:25 146/74 12/15/16 12:15 55 L 18 188/84 98 12/15/16 09:28 97.5 F L 60 20 144/77 98 Intake and Output 12/15/16 12/15/16 12/15/16 06:59 14:59 22:59 Intake Total 500 Output Total 120 Balance 380 Intake: IV 500 Invasive Line 1 500 Output: Urine 120 Other: Weight 71.214 kg Patient Weight 12/16/16 06:59 Weight 71.214 kg Physical exam Gen. appearance oriented 3 in no distress Neck is supple no JVD Lungs good air entry clear to auscultation no rhonchi or wheezing Heart S1-S2 heard regular rate and rhythm no murmurs appreciated Abdomen is soft nontender no organomegaly bowel sounds are intact Neurologically cranial nerves II-12 grossly intact no focal motor or sensory deficits noted Skin no abnormalities appreciated Results CBC & Chem 7: 12/15/16 10:10 12/15/16 10:10 Labs: Abnormal Lab Results - Last 24 Hours (Table) 12/15/16 12/15/16 12/15/16 Range/Units 10:10 10:10 10:10 INR 1.2 H (<1.2) Glucose 103 H (74-99) mg/dL CK-MB (CK-2) 2.6 H* (0.0-2.4) ng/mL Thrombosis Risk Factor Assmnt - Choose All That Apply Each Factor Represents 1 point: Obesity (BMI >25) Each Risk Factor Represents 3 Points: Age 75 years or older Thrombosis Risk Factor Assessment Total Risk Factor Score: 4 Thrombosis Risk Factor Assessment Level: Moderate Risk Assessment and Plan Plan: #1 vasovagal syncope #2 TIA, incidental finding of the sub acute stroke on computed tomography scan #3 history of CAD #4 dyslipidemia #5 CAD #6BPH Plan Patient's symptoms appear to be very lasted only a few minutes we'll monitor the patient the next 24 hours with ABCD to scoring Obtain MRI to delineate the etiology of the finding on computed tomography scan Neuro checks Encourage ambulation for DVT prophylaxis neurology will evaluate the patient as well
--- NOTE | 2016-12-15 16:03 | MR ---
Brain MRI HISTORY: Left arm numbness, tingling in fingers Multiplanar multisequence of the brain Correlation to CT brain 12/15/2016 There is no restricted diffusion. Periventricular White matter confluent and scattered hyperintensit ies are present in the T2 and inversion recovery sequences. Cortical atrophy is present. No hemorrhag e or hydrocephalus. Orbits are normal. Probable polyp disease within the maxillary sinuses. Mucosal t hickening in the frontal sinus. No restricted diffusion. Corpus callosum, pituitary, cervical medulla ry junction and cerebellopontine angles are normal. Orbits are symmetric. IMPRESSION: Age related atrophy and chronic small vessel ischemic disease.
--- NOTE | 2016-12-15 19:47 | P.CNNES ---
History of Present Illness Consult date: 12/15/16 Requesting physician: Valentín Nixon Reason for Consult: numbness Chief complaint: numbness History of Present Illness: The patient is a pleasant 81-year-old male who is being evaluated by the neurology service per the request of Dr. Nixon for left hand numbness and tingling. The patient states that over the past several months, he has been having intermittent episodes of numbness and tingling in his left hand, mainly in his fourth and fifth digits. Early this morning, he will call up and found his digits to be numb as well. Normally, he would wake up with these symptoms and then they would resolve within a few minutes. He noticed that the did not resolve this time. He also noticed some discomfort around the elbow on the left side. The patient also reports having some dizziness. He was brought into [facility] emergency room for further workup and management. A computed tomography scan of the brain was done which showed an age indeterminant lacunar infarct involving the right centrum semiovale. The patient denies any previous history of strokes. He does take aspirin 81 mg daily. His chest x-ray was normal. His CBC, INR, comprehensive metabolic profile, and troponin were normal. He did have a recent carotid Doppler on which showed no hemodynamically significant stenosis. The patient was admitted for further workup and management. At the time of my evaluation, his symptoms have completely resolved. He did have an MRI of the brain earlier today but the results are pending. Review of Systems All systems: negative Constitutional: Denies chills, Denies fever Eyes: denies blurred vision, denies pain Ears, nose, mouth and throat: Denies headache, Denies sore throat Cardiovascular: Denies chest pain, Denies shortness of breath Respiratory: Denies cough Gastrointestinal: Denies abdominal pain, Denies diarrhea, Denies nausea, Denies vomiting Musculoskeletal: Denies myalgias Integumentary: Denies pruritus, Denies rash Neurological: Reports numbness, Reports tingling, Denies weakness Psychiatric: Denies anxiety, Denies depression Endocrine: Denies fatigue, Denies weight change Past Medical History Past Medical History: Coronary Artery Disease (CAD), GERD/Reflux, Hyperlipidemia , Hypertension Additional Past Medical History / Comment(s): 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 "LOOKS LIKE A STEAMED UP WINDOW" ALL THE TIME, POST OP LENS REPLACEMENT Last Myocardial Infarction Date:: 06/2016 History of Any Multi-Drug Resistant Organisms: None Reported Past Surgical History: Heart Catheterization, Heart Catheterization With Stent, Orthopedic Surgery Additional Past Surgical History / Comment(s): hemmorroids, rotater cuff left shoulder, agustin cataract with lens replacement, stents x5, sinus sx Past Anesthesia/Blood Transfusion Reactions: Previous Problems w/ Anesthesia Additional Past Anesthesia/Blood Transfusion Reaction / Comment(s): had hard time waking up post op x1 Date of Last Stent Placement:: 2014 Past Psychological History: No Psychological Hx Reported Smoking Status: Never smoker Past Alcohol Use History: None Reported Past Drug Use History: None Reported - Past Family History Father Additional Family Medical History / Comment(s): emphysema Medications and Allergies Home Medications Medication Instructions Recorded Confirmed Type Aspirin 81 mg PO DAILY 10/16/14 12/15/16 History Lansoprazole [Prevacid] 15 mg PO DAILY 10/16/14 12/15/16 History Rosuvastatin Calcium [Crestor] 5 mg PO Q48H 10/16/14 12/15/16 History Tamsulosin HCl [Flomax] 0.4 mg PO DAILY 10/16/14 12/15/16 History amLODIPine [Norvasc] 2.5 mg PO HS 10/16/14 12/15/16 History Hydrochlorothiazide 25 mg PO DAILY PRN 08/10/16 12/15/16 History Allergies Allergy/AdvReac Type Severity Reaction Status Date / Time albuterol [From Ventolin HFA] Allergy Unknown Verified 12/15/16 10:44 amoxicillin trihydrate Allergy Itching/PASSED Verified 12/15/16 10:44 [From Augmentin] OUT atorvastatin calcium Allergy EYE "HAD Verified 12/15/16 10:44 [From Lipitor] BLOOD IN IT" cephalexin monohydrate Allergy Nausea & Verified 12/15/16 10:44 [From Keflex] Vomiting codeine Allergy SEVERE Verified 12/15/16 10:44 HEADACHE diazepam [From Valium] Allergy Unknown Verified 12/15/16 10:44 esomeprazole magnesium Allergy SEVERE Verified 12/15/16 10:44 [From Nexium] HEADACHE guaifenesin [From Entex LA] Allergy Unknown Verified 12/15/16 10:44 hydromorphone HCl Allergy Nausea & Verified 12/15/16 10:44 [From Dilaudid] Vomiting iodine Allergy Unknown Verified 12/15/16 10:44 metoclopramide [From Reglan] Allergy Unknown Verified 12/15/16 10:44 orphenadrine [From Norflex] Allergy Unknown Verified 12/15/16 10:44 phenylephrine [From Entex LA] Allergy Unknown Verified 12/15/16 10:44 phenylpropanolamine Allergy Unknown Verified 12/15/16 10:44 [From Entex LA] potassium clavulanate Allergy Itching/PASSED Verified 12/15/16 10:44 [From Augmentin] OUT potassium iodide Allergy Unknown Verified 12/15/16 10:44 propoxyphene Allergy "TONGUE Verified 12/15/16 10:44 [From Darvocet-N] PEELED" Sulfa (Sulfonamide Allergy Nausea & Verified 12/15/16 10:44 Antibiotics) Vomiting tolmetin [From Tolectin] Allergy Unknown Verified 12/15/16 10:44 ANTIHISTAMINES AdvReac UNABLE TO Uncoded 12/15/16 09:32 URINATE Physical Examination - Vital Signs Vital Signs: Vital Signs Temp Pulse Pulse Resp BP BP Pulse Ox 12/15/16 16:25 96.8 F L 53 L 18 145/72 96 12/15/16 12:25 146/74 12/15/16 12:15 55 L 18 188/84 98 12/15/16 09:28 97.5 F L 60 20 144/77 98 Intake and Output 12/15/16 12/15/16 12/15/16 06:59 14:59 22:59 Intake Total 500 118 Output Total 120 Balance 380 118 Intake: IV 500 Invasive Line 1 500 Oral 118 Output: Urine 120 Other: Weight 71.214 kg Patient Weight 12/16/16 06:59 Weight 71.214 kg - Constitutional General appearance: average body habitus, cooperative - EENT EENT: ATNC, PERRL - Cardiovascular Cardiovascular: regular rate Extremities: no peripheral edema bilaterally - Integumentary Integumentary: normal - Neurologic The patient is alert aware and oriented 3. Speech and language are normal. Strength is full in all 4 extremities. Sensory exam was normal to light touch in all 4 extremities. No pronator drift is seen. No facial asymmetry is noticed on cranial nerve testing. No tremors or seizure-like activity is seen. Tinel sign was positive and bilateral cubital tunnels. - Psychiatric Psychiatric: mood/affect appropriate, cooperative Results - Laboratory Findings CBC and BMP: 12/15/16 10:10 12/15/16 10:10 Abnormal Lab Findings: Abnormal Labs 12/15/16 12/15/16 12/15/16 10:10 10:10 10:10 INR 1.2 H Glucose 103 H CK-MB (CK-2) 2.6 H* - Diagnostic Findings Comments: I did review his computed tomography scan of the brain. All the above- mentioned labs were also reviewed. His MRI of the brain is pending. Assessment and Plan (1) Disturbance of skin sensation Status: Chronic (2) Lesion of ulnar nerve Status: Chronic (3) CVA (cerebral vascular accident) Status: Chronic Plan: The patient's left upper extremity numbness and tingling is more consistent with a peripheral neuropathy. His history and physical examination is consistent with ulnar neuropathy (cubital tunnel syndrome). He will need further outpatient neurophysiological workup and treatment. I did review his computed tomography scan of the brain and a lacunar infarct appears to be more chronic. An MRI of the brain was done but the results are pending. The patient is already on aspirin 81 mg daily at home. If the MRI of the brain does show evidence of an acute infarct, I do recommend switching his aspirin to Plavix. I did review his recent carotid Doppler which showed no hemodynamically significant stenosis. There is no need to repeat this at this time. I will order a lipid panel and serum homocysteine level. I will continue to follow with you. Further recommendations to follow. Thank you for allowing to participate in the care of your patient. If you have any questions, please for free to contact me. Time with Patient: Greater than 30
[2016-12-15] MEDS ORDERED: amLODIPine 2.5 MG TAB PO SCH (21:00)
[2016-12-16 07:02] LABS: Cholesterol 171 mg/dL (<200); HDL Cholesterol 38 mg/dL (40-60)
[2016-12-16] MEDS ORDERED: Lansoprazole [Prevacid] 15 MG PO SCH (07:30)
[2016-12-16] MEDS ORDERED: TAMSULOSIN 0.4 MG CAP.ER.24H PO SCH (09:00)
[2016-12-16] MEDS ORDERED: ASPIRIN 81 MG PO SCH (09:00)
[2016-12-16] MEDS ORDERED: Rosuvastatin Calcium [Crestor] 5 MG PO SCH (09:00)
[2016-12-16] MEDS ORDERED: CLOPIDOGREL 75 MG TAB PO SCH (09:00)
[2016-12-16 10:45] VITALS: PULSE 55
--- NOTE | 2016-12-16 12:33 | ECHOF ---
Referral Reason:Thrombus MEASUREMENTS -------- HEIGHT: 165.1 cm WEIGHT: 71.2 kg BP: RVIDd: 2.8 cm (< 3.3) IVSd: 1.3 cm (0.6 - 1.1) LVIDd: 4.0 cm (3.9 - 5.3) LVPWd: 1.3 cm (0.6 - 1.1) IVSs: 1.3 cm LVIDs: 3.5 cm LVPWs: 1.2 cm LA Diam: 4.1 cm (2.7 - 3.8) LAESV Index (A-L): 46.90 ml/m Ao Diam: 3.3 cm (2.0 - 3.7) AV Cusp: 1.6 cm (1.5 - 2.6) LA Diam: 4.7 cm (2.7 - 3.8) MV EXCURSION: 15.965 mm (> 18.000) MV EF SLOPE: 79 mm/s (70 - 150) EPSS: 1.8 cm MV E Fidencio: 0.60 m/s MV DecT: 256 ms MV A Fidencio: 0.57 m/s MV E/A Ratio: 1.05 RAP: 5.00 mmHg RVSP: 33.03 mmHg FINDINGS -------- Sinus rhythm. This was a technically adequate study. There is mild concentric left ventricular hypertrophy. Overall left ventricular systolic function is normal with, an EF between 55 - 60 %. The right ventricle is normal in size. LA is severely dilated >40 ml/m2 The right atrial size is normal. There is mild aortic valve sclerosis. There is no evidence of aortic regurgitation. Mild mitral annular calcification present. Moderate mitral regurgitation is present. Mild tricuspid regurgitation present. There is no evidence of pulmonary hypertension. The right ventricular systolic pressure, as measured by Doppler, is 33.03mmHg. Trace/mild (physiologic) pulmonic regurgitation. The aortic root size is normal. There is no pericardial effusion. CONCLUSIONS -------- 1. There is mild concentric left ventricular hypertrophy. 2. Trace/mild (physiologic) pulmonic regurgitation. 3. The aortic root size is normal. 4. There is no pericardial effusion. 5. Overall left ventricular systolic function is normal with, an EF between 55 - 60 %. 6. LA is severely dilated >40 ml/m2 7. There is mild aortic valve sclerosis. 8. Mild mitral annular calcification present. 9. Moderate mitral regurgitation is present. 10. Mild tricuspid regurgitation present. 11. There is no evidence of pulmonary hypertension. 12. The right ventricular systolic pressure, as measured by Doppler, is 33.03mmHg. [employer]: Kimberly Petit RDCS
[2016-12-16 13:00] VITALS: BP 129/70; TEMP 97
--- NOTE | 2016-12-16 17:45 | P.DS ---
Providers Date of admission: 12/15/16 12:10 Attending physician: Valentín Nixon MD Consults: 12/15/16 12:35 Consult Physician Routine Consulting Provider: Charlotte Wall Consult Reason/Comments: CVA Do you want consulting provider notified?: Yes Primary care physician: [facility] Course: 81-year-old man came in with the vasovagal syncope there is a possibility of hypotension contributed to his symptoms because of which patient's amlodipine was discontinued and patient apparently had bilateral lower limb swelling because of which I'm discontinued amlodipine continue and hydrochlorothiazide. Patient has low normal blood pressures here. 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 MRI did not show any acute ischemic event PHYSICAL EXAMINATION: GENERAL: The patient is alert and oriented x3, not in any acute distress. Well developed, well nourished. HEENT: Pupils are round and equally reacting to light. EOMI. No scleral icterus. No conjunctival pallor. Normocephalic, atraumatic. No pharyngeal erythema. No thyromegaly. CARDIOVASCULAR: S1 and S2 present. No murmurs, rubs, or gallops. PULMONARY: Chest is clear to auscultation, no wheezing or crackles. ABDOMEN: Soft, nontender, nondistended, normoactive bowel sounds. No palpable organomegaly. MUSCULOSKELETAL: No joint swelling or deformity. EXTREMITIES: No cyanosis, clubbing, or pedal edema. NEUROLOGICAL: Gross neurological examination did not reveal any focal deficits. SKIN: No rashes. #1 vasovagal syncope #2 median nerve entrapment #3 history of CAD #4 dyslipidemia #5 CAD #[id number] Patient Condition at Discharge: Stable Plan - Discharge Summary New Discharge Prescriptions: New Hydrochlorothiazide 25 mg PO DAILY #30 tablet Discontinued amLODIPine [Norvasc] 2.5 mg PO HS Hydrochlorothiazide 25 mg PO DAILY PRN PRN Reason: Edema No Action Tamsulosin HCl [Flomax] 0.4 mg PO DAILY Rosuvastatin Calcium [Crestor] 5 mg PO Q48H Lansoprazole [Prevacid] 15 mg PO DAILY Aspirin 81 mg PO DAILY Clopidogrel [Plavix] 75 mg PO DAILY #90 tab Nitroglycerin Sl Tabs [Nitrostat] 0.4 mg SUBLINGUAL Q5M PRN #20 tab PRN Reason: Chest Pain Discharge Medication List Aspirin 81 mg PO DAILY 10/16/14 [History] Lansoprazole [Prevacid] 15 mg PO DAILY 10/16/14 [History] Rosuvastatin Calcium [Crestor] 5 mg PO Q48H 10/16/14 [History] Tamsulosin HCl [Flomax] 0.4 mg PO DAILY 10/16/14 [History] Clopidogrel [Plavix] 75 mg PO DAILY #90 tab 10/17/14 [Rx] Nitroglycerin Sl Tabs [Nitrostat] 0.4 mg SUBLINGUAL Q5M PRN #20 tab 07/03/16 [Rx ] Hydrochlorothiazide 25 mg PO DAILY #30 tablet 12/16/16 [Rx] Follow up Appointment(s)/Referral(s): Charlotte Wall MD [STAFF PHYSICIAN] - 1 Week Rosalio Moore DO [Primary Care Provider] - 1-2 days Discharge Disposition: HOME SELF-CARE
--- NOTE | 2016-12-17 12:46 | EEG ---
DATE OF SERVICE: 12/16/2016 REASON FOR TESTING: Transient ischemic attack and dizziness. DESCRIPTION OF THE PROCEDURE: This EEG was performed using a 21 channel digital electroencephalograph, following internation 10-20 system. DESCRIPTION OF THE RECORDING: From the beginning of the tracing, note the patient's eyes closed, the background rhythm was mostly consisting of 9 Hz alpha frequency in the posterior occipital leads. No obvious asymmetry is seen. Photic stimulation was performed with no driving response seen. No pathological waves were elicited. Hyperventilation was not performed. Later in the tracing, the patient does reach stage 2 of sleep and occasional sleep spindles are seen. No epileptiform discharges were seen. His EKG lead showed a regular rate and rhythm. INTERPRETATION: This asleep and awake EEG can be considered within normal limits. There is no asymmetry seen. No epileptiform discharges were noticed. The absence of epileptiform discharges does not rule out the diagnosis of epilepsy, therefore, clinical correlation is recommended. MTDD
== END 2016-12-16 15:34 | disposition home or self-care (01) | DRG 66 ==
LOC: EC 09:22 → 6SEL 12:10
PROVIDERS: ADMIT Internal Medicine; ATTEND Internal Medicine
DX: I63.9 Cerebral infarction, unspecified (principal); I10 Essential (primary) hypertension; E78.5 Hyperlipidemia, unspecified; G56.02 Carpal tunnel syndrome, left upper limb; I25.10 Atherosclerotic heart disease of native coronary artery without angina pectoris; I25.2 Old myocardial infarction; K21.9 Gastro-esophageal reflux disease without esophagitis; Z79.82 Long term (current) use of aspirin; Z79.899 Other long term (current) drug therapy; Z88.1 Allergy status to other antibiotic agents; Z88.5 Allergy status to narcotic agent; Z88.0 Allergy status to penicillin; Z88.2 Allergy status to sulfonamides; Z88.8 Allergy status to other drugs, medicaments and biological substances; Z87.891 Personal history of nicotine dependence; Z95.5 Presence of coronary angioplasty implant and graft; Z96.1 Presence of intraocular lens; G56.22 Lesion of ulnar nerve, left upper limb
CPT/HCPCS: 36415; 70450; 70551; 71020; 80053; 80061; 82550; 82553; 83090; 83735; 84484; 85025; 85610; 85730; 93005; 93306; 95819; 96360; 96361; 99285

== ENCOUNTER 2017-01-15 18:30 | Emergency (ER) | payer MEDICARE, BC ==
[2017-01-15] MEDS ORDERED: ENALAPRILAT 1.25 MG/ML 1 ML VIAL IVP STA (19:37)
[2017-01-15] MEDS ORDERED: SODIUM CHLORIDE 0.9% 500 ML IV STA (19:37)
--- NOTE | 2017-01-15 19:44 | ED ---
General Adult HPI - General Chief complaint: Recheck/Abnormal Lab/Rx Stated complaint: hypertension following med change Time Seen by Provider: 01/15/17 19:18 Source: patient, RN notes reviewed Mode of arrival: ambulatory Limitations: no limitations - History of Present Illness Initial comments: 81 yo male presents to the ER with cc of hypertension. Patient states that he was recently taken off one of his blood pressure medication his blood pressure started become elevated. Patient states that he did have an elevated blood pressure home with her elevated heart rates occult doctor and they referred him here. Patient states that this time he feels fine. Patient states he not have a headache with this he denies any chest pain or shortness of breath. He denies any abdominal pain. Patient states she was concerned due to the blood pressure so he thought that he should be evaluated. Patient denies any recent fever, chills, shortness of breath, chest pain, back pain, abdominal pain, nausea vomiting, numbness or tingling, dysuria or hematuria, constipation or diarrhea, headaches or visual changes, or any other current symptoms. - Related Data Home Medications Medication Instructions Recorded Confirmed Aspirin 81 mg PO HS 10/16/14 01/15/17 Lansoprazole [Prevacid] 15 mg PO QA 10/16/14 01/15/17 Rosuvastatin Calcium [Crestor] 5 mg PO Q48H 10/16/14 01/15/17 Tamsulosin HCl [Flomax] 0.4 mg PO HS 10/16/14 01/15/17 Clopidogrel [Plavix] 75 mg PO 01/15/17 01/15/17 Hydrochlorothiazide [Hydrodiuril] 12.5 mg PO QA 01/15/17 01/15/17 Levothyroxine Sodium [Synthroid] 50 mcg PO DAILY 01/15/17 01/15/17 Allergies Allergy/AdvReac Type Severity Reaction Status Date / Time amoxicillin trihydrate Allergy Itching/PASSED Verified 01/15/17 20:26 [From Augmentin] OUT diazepam [From Valium] Allergy Unknown Verified 01/15/17 20:26 guaifenesin [From Entex LA] Allergy Unknown Verified 01/15/17 20:26 hydromorphone HCl Allergy Nausea & Verified 01/15/17 20:26 [From Dilaudid] Vomiting metoclopramide [From Reglan] Allergy Unknown Verified 01/15/17 20:26 orphenadrine [From Norflex] Allergy Unknown Verified 01/15/17 20:26 phenylephrine [From Entex LA] Allergy Unknown Verified 01/15/17 20:26 phenylpropanolamine Allergy Unknown Verified 01/15/17 20:26 [From Entex LA] potassium clavulanate Allergy Itching/PASSED Verified 01/15/17 20:26 [From Augmentin] OUT potassium iodide Allergy Unknown Verified 01/15/17 20:26 tolmetin [From Tolectin] Allergy itching/passed Verified 01/15/17 20:26 out albuterol [From Ventolin HFA] AdvReac Dizzy Verified 01/15/17 20:26 atorvastatin calcium AdvReac EYE "HAD Verified 01/15/17 20:26 [From Lipitor] BLOOD IN IT" cephalexin monohydrate AdvReac Nausea & Verified 01/15/17 20:26 [From Keflex] Vomiting codeine AdvReac SEVERE Verified 01/15/17 20:26 HEADACHE esomeprazole magnesium AdvReac SEVERE Verified 01/15/17 20:26 [From Nexium] HEADACHE propoxyphene AdvReac "TONGUE Verified 01/15/17 20:26 [From Darvocet-N] PEELED" Sulfa (Sulfonamide AdvReac Nausea & Verified 01/15/17 20:26 Antibiotics) Vomiting ANTIHISTAMINES AdvReac UNABLE TO Uncoded 01/15/17 18:42 URINATE Review of Systems ROS Statement: Those systems with pertinent positive or pertinent negative responses have been documented in the HPI. ROS Other: All systems not noted in ROS Statement are negative. Past Medical History Past Medical History: Coronary Artery Disease (CAD), GERD/Reflux, Hyperlipidemia , Hypertension Additional Past Medical History / Comment(s): 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 "LOOKS LIKE A STEAMED UP WINDOW" ALL THE TIME, POST OP LENS REPLACEMENT Last Myocardial Infarction Date:: 06/2016 History of Any Multi-Drug Resistant Organisms: None Reported Past Surgical History: Heart Catheterization, Heart Catheterization With Stent, Orthopedic Surgery Additional Past Surgical History / Comment(s): hemmorroids, rotater cuff left shoulder, agustin cataract with lens replacement, stents x5, sinus sx Past Anesthesia/Blood Transfusion Reactions: Previous Problems w/ Anesthesia Additional Past Anesthesia/Blood Transfusion Reaction / Comment(s): had hard time waking up post op x1 Date of Last Stent Placement:: 2014 Past Psychological History: No Psychological Hx Reported Smoking Status: Never smoker Past Alcohol Use History: None Reported Past Drug Use History: None Reported - Past Family History Father Additional Family Medical History / Comment(s): emphysema General Exam - General Exam Comments Initial Comments: General: The patient is awake and alert, in no distress, and does not appear acutely ill. Eye: Pupils are equal, round and reactive to light, extra-ocular movements are intact; there is normal conjunctiva bilaterally. No signs of icterus. Ears, nose, mouth and throat: There are moist mucous membranes and no oral lesions. Neck: The neck is supple, there is no tenderness. Cardiovascular: There is a regular rate and rhythm. No murmur, rub or gallop is appreciated. Respiratory: Lungs are clear to auscultation, respirations are non-labored, breath sounds are equal. No wheezes, stridor, rales, or rhonchi. Gastrointestinal: Soft, non-distended, non-tender abdomen without masses or organomegaly noted. There is no rebound or guarding present. No CVA tenderness. Bowel sounds are unremarkable. Back: There is no tenderness to palpation in the midline. There is no obvious deformity. No rashes noted. Musculoskeletal: Normal ROM, no tenderness, There is no pedal edema. There is no calf tenderness or swelling. Sensation intact. Pulses equal bilaterally 2+. Neurological: CN II-XII intact, There are no obvious motor or sensory deficits. Coordination appears grossly intact. Speech is normal. Skin: Skin is warm and dry and no rashes or lesions are noted. Psychiatric: Cooperative, appropriate mood & affect, normal judgment. Limitations: no limitations Course Vital Signs 01/15/17 01/15/17 01/15/17 18:38 19:49 19:59 Temperature 99.0 F Pulse Rate 63 71 54 L Respiratory 16 18 18 Rate Blood Pressure 183/100 186/90 174/79 O2 Sat by Pulse 97 95 96 Oximetry 01/15/17 20:17 Temperature Pulse Rate 51 L Respiratory 18 Rate Blood Pressure 171/81 O2 Sat by Pulse 95 Oximetry Medical Decision Making - Medical Decision Making 81-year-old male presents to the emergency department with a chief complaint of hypertension. This time patient's blood pressure has improved. This time lab work is reviewed. We discussed going back on his original blood pressure medications. We did discuss close follow up with his doctor. We discussed return parameters and all questions. They stated they understood and they are in agreement with plan. At this time they will be discharged home. - Lab Data Result diagrams: 01/15/17 19:57 01/15/17 19:57 Lab Results 01/15/17 01/15/17 01/15/17 Range/Units 19:57 19:57 19:57 WBC 8.7 (3.8-10.6) k/uL RBC 5.00 (4.30-5.90) m/uL Hgb 16.4 (13.0-17.5) gm/dL Hct 47.1 (39.0-53.0) % MCV 94.2 (80.0-100.0) fL MCH 32.7 (25.0-35.0) pg MCHC 34.7 (31.0-37.0) g/dL RDW 13.3 (11.5-15.5) % Plt Count 196 (150-450) k/uL Neutrophils % 59 % Lymphocytes % 29 % Monocytes % 7 % Eosinophils % 2 % Basophils % 1 % Neutrophils # 5.1 (1.3-7.7) k/uL Lymphocytes # 2.6 (1.0-4.8) k/uL Monocytes # 0.6 (0-1.0) k/uL Eosinophils # 0.2 (0-0.7) k/uL Basophils # 0.1 (0-0.2) k/uL Sodium 142 (137-145) mmol/L Potassium 4.2 (3.5-5.1) mmol/L Chloride 103 (98-107) mmol/L Carbon Dioxide 26 (22-30) mmol/L Anion Gap 13 mmol/L BUN 23 H (9-20) mg/dL Creatinine 1.10 (0.66-1.25) mg/dL Est GFR (MDRD) Af Amer >60 (>60 ml/min/1.73 sqM) Est GFR (MDRD) Non-Af >60 (>60 ml/min/1.73 sqM) Glucose 110 H (74-99) mg/dL Calcium 10.3 H (8.4-10.2) mg/dL Total Bilirubin 1.0 (0.2-1.3) mg/dL AST 26 (17-59) U/L ALT 37 (21-72) U/L Alkaline Phosphatase 65 (38-126) U/L Total Protein 8.1 (6.3-8.2) g/dL Albumin 5.0 (3.5-5.0) g/dL Urine Color Colorless Urine Appearance Clear (Clear) Urine pH 7.0 (5.0-8.0) Ur Specific Gibbon 1.004 (1.001-1.035) Urine Protein Negative (Negative) Urine Glucose (UA) Negative (Negative) Urine Ketones Negative (Negative) Urine Blood Negative (Negative) Urine Nitrite Negative (Negative) Urine Bilirubin Negative (Negative) Urine Urobilinogen <2.0 (<2.0) mg/dL Ur Leukocyte Esterase Trace H (Negative) Urine WBC 2 (0-5) /hpf Ur Squamous Epith Cells <1 (0-4) /hpf Urine Mucus Rare H (None) /hpf Disposition Clinical Impression: Hypertension Disposition: HOME SELF-CARE Condition: Stable Instructions: Hypertension (ED) Additional Instructions: Please use medication as discussed. Please follow up with family doctor if symptoms have not improved over the next two days. Please return to the emergency room if your symptoms increase or worsen or for any other concerns. Referrals: Rosalio Moore DO [Primary Care Provider] - 1-2 days Time of Disposition: 20:44
[2017-01-15 20:09] LABS: Basophils # (A) 0.1 k/uL (0-0.2); Basophils % (A) 1 %; CH 32.3; CHCM 34.4; Eosinophils # (A) 0.2 k/uL (0-0.7); Eosinophils % (A) 2 %; HCT 47.1 % (39.0-53.0); HDW 2.21; HGB 16.4 gm/dL (13.0-17.5); Luc # (Auto) 0.21; Luc % (Auto) 2; Lymphocytes # (A) 2.6 k/uL (1.0-4.8); Lymphocytes % (A) 29 %; MCH 32.7 pg (25.0-35.0); MCHC 34.7 g/dL (31.0-37.0); MCV 94.2 fL (80.0-100.0); Mean Platelet Volume 7.5; Monocytes # (A) 0.6 k/uL (0-1.0); Monocytes % (A) 7 %; Neutrophils # (A) 5.1 k/uL (1.3-7.7); Neutrophils % (A) 59 %; RDW 13.3 % (11.5-15.5); WBC 8.7 k/uL (3.8-10.6)
[2017-01-15 20:14] LABS: Appearance,Urine Clear (Clear); Bilirubin,Urine Negative (Negative); Glucose,Urine (UA) Negative (Negative); Ketones,Urine Negative (Negative); Leukocyte Esterase,Urine Trace (Negative); Mucus,Urine Rare /hpf; Nitrite,Urine Negative (Negative); Particle Count 242; Protein,Urine Negative (Negative); Specific Gravity,Urine 1.004 (1.001-1.035); Squamous Epithelial Cell,Urine <1 /hpf (0-4); UA Billing (MACRO vs. MICRO) MICRO; Urobilinogen,Urine <2.0 mg/dL (<2.0); WBC,Urine 2 /hpf (0-5)
[2017-01-15 20:32] LABS: ALT 37 U/L (21-72); AST 26 U/L (17-59); Alkaline Phosphatase 65 U/L (38-126); Anion Gap 13 mmol/L; Blood Urea Nitrogen 23 mg/dL (9-20); Calcium 10.3 mg/dL (8.4-10.2); Carbon Dioxide 26 mmol/L (22-30); Chloride 103 mmol/L (98-107); Glucose 110 mg/dL (74-99); Non-African American GFR(MDRD) >60 (>60 ml/min/1.73 sqM); Potassium 4.2 mmol/L (3.5-5.1); Sodium 142 mmol/L (137-145); Total Protein 8.1 g/dL (6.3-8.2)
[2017-01-15 20:47] VITALS: BP 163/96; PULSE 56; RESP 15; TEMP 97.7
== END 2017-01-15 20:56 | disposition home or self-care (01) ==
LOC: EC 18:30
DX: I10 Essential (primary) hypertension (principal); I25.10 Atherosclerotic heart disease of native coronary artery without angina pectoris; E78.5 Hyperlipidemia, unspecified; Z95.5 Presence of coronary angioplasty implant and graft; Z79.82 Long term (current) use of aspirin; Z79.02 Long term (current) use of antithrombotics/antiplatelets; Z79.899 Other long term (current) drug therapy; Z88.0 Allergy status to penicillin; Z88.1 Allergy status to other antibiotic agents; Z88.2 Allergy status to sulfonamides; Z88.5 Allergy status to narcotic agent; Z88.8 Allergy status to other drugs, medicaments and biological substances
CPT/HCPCS: 36415; 80053; 81001; 85025; 96361; 96374; 99283

== ENCOUNTER → 2017-08-17 | Outpatient (CLI) | payer MEDICARE, BC ==
--- NOTE | 2017-08-17 10:03 | XR ---
EXAMINATION TYPE: XR KUB DATE OF EXAM: 08/17/2017 8:54 AM CLINICAL HISTORY: Right-sided flank pain TECHNIQUE: Single supine KUB image of the abdomen is obtained. COMPARISON: None. FINDINGS: There is a mild S-shaped scoliotic curvature of the visualized thoracolumbar spine. Scatter ed gas is seen in non-distended small bowel loops. Gas and fecal material is seen in non-distended co dee dee. There is no abnormal calcification appreciated. The lung bases are clear and the osseous structu res are intact. Mild femoral acetabular arthropathy is also identified. IMPRESSION: 1. No abnormal calcifications are seen overlying the renal shadows. Renal ultrasound could be perform ed if there is further concern. 2. Nonobstructive bowel gas pattern.
== END | disposition home or self-care (01) ==
LOC: RADXRMAIN 08:37
PROVIDERS: ATTEND Urology
DX: M54.9 Dorsalgia, unspecified (principal)
CPT/HCPCS: 74018

== ENCOUNTER 2018-01-03 19:31 | Observation (INO) | payer MEDICARE, BC ==
[2018-01-03] MEDS ORDERED: SODIUM CHLORIDE 0.9% 1,000 ML IV STA (20:02)
[2018-01-03] MEDS ORDERED: ONDANSETRON 4 MG/2 ML VIAL IVP STA (20:02)
[2018-01-03 20:06] LABS: Glucose,Whole Blood 100 mg/dL (75-99)
[2018-01-03 20:49] LABS: Basophils # (A) 0.1 k/uL (0-0.2); Basophils % (A) 1 %; Eosinophils # (A) 0.2 k/uL (0-0.7); Eosinophils % (A) 2 %; HCT 45.8 % (39.0-53.0); HGB 15.6 gm/dL (13.0-17.5); Lymphocytes # (A) 2.4 k/uL (1.0-4.8); Lymphocytes % (A) 27 %; MCH 32.5 pg (25.0-35.0); MCV 95.4 fL (80.0-100.0); Mean Platelet Volume 7.3; Monocytes # (A) 0.8 k/uL (0-1.0); Monocytes % (A) 9 %; Neutrophils # (A) 5.4 k/uL (1.3-7.7); Neutrophils % (A) 60 %; Platelet Count 218 k/uL (150-450); RDW 13.2 % (11.5-15.5)
[2018-01-03 20:59] LABS: ALT 32 U/L (21-72); AST 33 U/L (17-59); Albumin 4.5 g/dL (3.5-5.0); Alkaline Phosphatase 57 U/L (38-126); Anion Gap 9 mmol/L; Blood Urea Nitrogen 17 mg/dL (9-20); Calcium 9.6 mg/dL (8.4-10.2); Carbon Dioxide 27 mmol/L (22-30); Chloride 105 mmol/L (98-107); Glucose 80 mg/dL (74-99); Potassium 4.4 mmol/L (3.5-5.1); Sodium 141 mmol/L (137-145); Total Bilirubin 0.8 mg/dL (0.2-1.3); Total Protein 7.6 g/dL (6.3-8.2)
[2018-01-03 21:01] LABS: INR 1.1 (<1.2); Partial Thromboplastin Time 23.1 sec (22.0-30.0); Prothrombin Time 10.4 sec (9.0-12.0)
[2018-01-03 21:03] LABS: Creatine Kinase 107 U/L (55-170)
--- NOTE | 2018-01-03 21:06 | CT ---
EXAMINATION: CT brain wo con DATE AND TIME: 01/03/2018 8:32 PM CLINICAL INDICATION: Neuro Deficits TECHNIQUE: Standard departmental protocol. COMPARISON: 12/15/2016 FINDINGS: The calvarium is intact. There is no intracranial hemorrhage. There is no intracranial mass or mass effect. No definite new intra-axial or extra-axial attenuation defect. The paranasal sinuses, middle ear cavities, and mastoid sinus air cells are clear. The orbits are unremarkable. IMPRESSION: NO ACUTE PROCESS.
--- NOTE | 2018-01-03 21:12 | XR ---
EXAMINATION: XR chest 2V DATE AND TIME: 01/03/2018 8:32 PM CLINICAL INDICATION: altered mental status TECHNIQUE: PA and lateral COMPARISON: 12/15/2016 FINDINGS: The lungs are clear. The pleural spaces are negative. The cardiac silhouette is not enlarged. The remainder of the mediastinal silhouette is unremarkable. The skeletal structures and soft tissues are negative for acute findings. IMPRESSION: NO DEFINITE ACUTE PROCESS.
[2018-01-03 21:16] LABS: Creatine Kinase MB 2.2 ng/mL (0.0-2.4); Troponin I <0.012 ng/mL (0.000-0.034)
[2018-01-03] MEDS ORDERED: ONDANSETRON 4 MG/2 ML VIAL IVP PRN (22:01)
[2018-01-03] MEDS ORDERED: ACETAMINOPHEN TAB 325 MG TAB PO PRN (22:01)
[2018-01-03] MEDS ORDERED: NALOXONE 0.4 MG/ML 1 ML VIAL IV PRN (22:01)
--- NOTE | 2018-01-03 22:01 | ED ---
Neuro HPI - General Chief Complaint: Neuro Symptoms/Deficit Stated Complaint: neck/face/eye pain Time Seen by Provider: 01/03/18 20:01 Source: patient Mode of arrival: ambulatory Limitations: no limitations - History of Present Illness Is the patient presenting with stroke symptoms?: No Initial Comments: 82 years old male comes in with a headache, he has a headache and pain in the neck around today. Travel up, Of the scalp then he had some floaters in his right eye he does have a history of floaters flowed to stated there for hours now he has no floaters he still has headache no blurred vision no slurred speech no symptoms of TIA or CVA he does feel dizzy area denies any neck stiffness no chest pain or shortness of breath no abdominal pain no frequency urgency dysuria no obvious signs of TIA or CVA - Related Data Home Medications: Home Medications Medication Instructions Recorded Confirmed Aspirin 81 mg PO DAILY 10/16/14 01/03/18 Lansoprazole [Prevacid] 15 mg PO QAM 10/16/14 01/03/18 Rosuvastatin Calcium [Crestor] 5 mg PO MOWEFR 10/16/14 01/03/18 Clopidogrel [Plavix] 75 mg PO HS 01/15/17 01/03/18 Hydrochlorothiazide [Hydrodiuril] 12.5 mg PO QA 01/15/17 01/03/18 amLODIPine [Norvasc] 2.5 - 5 mg PO 01/03/18 01/03/18 Allergies/Adverse Reactions: Allergies Allergy/AdvReac Type Severity Reaction Status Date / Time amoxicillin trihydrate Allergy Itching/PASSED Verified 01/03/18 20:19 [From Augmentin] OUT diazepam [From Valium] Allergy Unknown Verified 01/03/18 20:19 guaifenesin [From Entex LA] Allergy Unknown Verified 01/03/18 20:19 hydromorphone HCl Allergy Nausea & Verified 01/03/18 20:19 [From Dilaudid] Vomiting metoclopramide [From Reglan] Allergy Unknown Verified 01/03/18 20:19 orphenadrine [From Norflex] Allergy Unknown Verified 01/03/18 20:19 phenylephrine [From Entex LA] Allergy Unknown Verified 01/03/18 20:19 phenylpropanolamine Allergy Unknown Verified 01/03/18 20:19 [From Entex LA] potassium clavulanate Allergy Itching/PASSED Verified 01/03/18 20:19 [From Augmentin] OUT potassium iodide Allergy Unknown Verified 01/03/18 20:19 tolmetin [From Tolectin] Allergy itching/passed Verified 01/03/18 20:19 out albuterol [From Ventolin HFA] AdvReac Dizzy Verified 01/03/18 20:19 atorvastatin calcium AdvReac EYE "HAD Verified 01/03/18 20:19 [From Lipitor] BLOOD IN IT" cephalexin monohydrate AdvReac Nausea & Verified 01/03/18 20:19 [From Keflex] Vomiting codeine AdvReac SEVERE Verified 01/03/18 20:19 HEADACHE esomeprazole magnesium AdvReac SEVERE Verified 01/03/18 20:19 [From Nexium] HEADACHE propoxyphene AdvReac "TONGUE Verified 01/03/18 20:19 [From Darvocet-N] PEELED" Sulfa (Sulfonamide AdvReac Nausea & Verified 01/03/18 20:19 Antibiotics) Vomiting ANTIHISTAMINES AdvReac UNABLE TO Uncoded 01/15/17 18:42 URINATE Review of Systems ROS Statement: Those systems with pertinent positive or pertinent negative responses have been documented in the HPI. ROS Other: All systems not noted in ROS Statement are negative. General Exam - General Exam Comments Initial Comments: General: The patient is awake and alert, in no distress, and does not appear acutely ill. GCS is 15 Skin: Skin is warm and dry and no rashes or lesions are noted. Eye: Pupils are equal, round and reactive to light, extra-ocular movements are intact; there is normal conjunctiva bilaterally. Ears, nose, mouth and throat: There are moist mucous membranes and no oral lesions. Neck: The neck is supple, there is no tenderness or signs of any meningitis Cardiovascular: There is a regular rate and rhythm. No murmur, rub or gallop is appreciated. Respiratory: To auscultation bilateral, crease breath sounds bilateral Gastrointestinal: Soft, non-distended, non-tender abdomen without masses or organomegaly noted. There is no rebound or guarding present. Bowel sounds are unremarkable. Back: There is no tenderness to palpation in the midline. There is no obvious deformity. Musculoskeletal: Normal ROM, no tenderness, There is no pedal edema. There is no calf tenderness or swelling. No cords were appreciated. Neurological: CN II-XII intact, Cranial nerves III through XII are intact. There are no obvious motor or sensory deficits. Coordination appears grossly intact. Speech is normal. Psychiatric: Cooperative, appropriate mood & affect, normal judgment. Limitations: no limitations Stroke MDM - Lab Data Result diagrams: 01/03/18 20:32 01/03/18 20:32 Lab Results 01/03/18 01/03/18 01/03/18 Range/Units 19:58 20:32 20:32 WBC 9.0 (3.8-10.6) k/uL RBC 4.80 (4.30-5.90) m/uL Hgb 15.6 (13.0-17.5) gm/dL Hct 45.8 (39.0-53.0) % MCV 95.4 (80.0-100.0) fL MCH 32.5 (25.0-35.0) pg MCHC 34.0 (31.0-37.0) g/dL RDW 13.2 (11.5-15.5) % Plt Count 218 (150-450) k/uL Neutrophils % 60 % Lymphocytes % 27 % Monocytes % 9 % Eosinophils % 2 % Basophils % 1 % Neutrophils # 5.4 (1.3-7.7) k/uL Lymphocytes # 2.4 (1.0-4.8) k/uL Monocytes # 0.8 (0-1.0) k/uL Eosinophils # 0.2 (0-0.7) k/uL Basophils # 0.1 (0-0.2) k/uL PT (9.0-12.0) sec INR (<1.2) APTT (22.0-30.0) sec Sodium (137-145) mmol/L Potassium (3.5-5.1) mmol/L Chloride (98-107) mmol/L Carbon Dioxide (22-30) mmol/L Anion Gap mmol/L BUN (9-20) mg/dL Creatinine (0.66-1.25) mg/dL Est GFR (CKD-EPI)AfAm (>60 ml/min/1.73 sqM) Est GFR (CKD-EPI)NonAf (>60 ml/min/1.73 sqM) Glucose (74-99) mg/dL POC Glucose (mg/dL) 100 H (75-99) mg/dL POC [employer] ID Lexie Zapien Calcium (8.4-10.2) mg/dL Total Bilirubin (0.2-1.3) mg/dL AST (17-59) U/L ALT (21-72) U/L Alkaline Phosphatase (38-126) U/L Total Creatine Kinase 107 (55-170) U/L CK-MB (CK-2) 2.2 (0.0-2.4) ng/mL CK-MB (CK-2) Rel Index 2.1 Troponin I <0.012 (0.000-0.034) ng/mL Total Protein (6.3-8.2) g/dL Albumin (3.5-5.0) g/dL 01/03/18 01/03/18 Range/Units 20:32 20:32 WBC (3.8-10.6) k/uL RBC (4.30-5.90) m/uL Hgb (13.0-17.5) gm/dL Hct (39.0-53.0) % MCV (80.0-100.0) fL MCH (25.0-35.0) pg MCHC (31.0-37.0) g/dL RDW (11.5-15.5) % Plt Count (150-450) k/uL Neutrophils % % Lymphocytes % % Monocytes % % Eosinophils % % Basophils % % Neutrophils # (1.3-7.7) k/uL Lymphocytes # (1.0-4.8) k/uL Monocytes # (0-1.0) k/uL Eosinophils # (0-0.7) k/uL Basophils # (0-0.2) k/uL PT 10.4 (9.0-12.0) sec INR 1.1 (<1.2) APTT 23.1 (22.0-30.0) sec Sodium 141 (137-145) mmol/L Potassium 4.4 (3.5-5.1) mmol/L Chloride 105 (98-107) mmol/L Carbon Dioxide 27 (22-30) mmol/L Anion Gap 9 mmol/L BUN 17 (9-20) mg/dL Creatinine 0.91 (0.66-1.25) mg/dL Est GFR (CKD-EPI)AfAm >90 (>60 ml/min/1.73 sqM) Est GFR (CKD-EPI)NonAf 79 (>60 ml/min/1.73 sqM) Glucose 80 (74-99) mg/dL POC Glucose (mg/dL) (75-99) mg/dL POC [employer] Leader ID Calcium 9.6 (8.4-10.2) mg/dL Total Bilirubin 0.8 (0.2-1.3) mg/dL AST 33 (17-59) U/L ALT 32 (21-72) U/L Alkaline Phosphatase 57 (38-126) U/L Total Creatine Kinase (55-170) U/L CK-MB (CK-2) (0.0-2.4) ng/mL CK-MB (CK-2) Rel Index Troponin I (0.000-0.034) ng/mL Total Protein 7.6 (6.3-8.2) g/dL Albumin 4.5 (3.5-5.0) g/dL Past Medical History Past Medical History: Coronary Artery Disease (CAD), GERD/Reflux, Hyperlipidemia , Hypertension Additional Past Medical History / Comment(s): 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 "LOOKS LIKE A STEAMED UP WINDOW" ALL THE TIME, POST OP LENS REPLACEMENT Last Myocardial Infarction Date:: 06/2016 History of Any Multi-Drug Resistant Organisms: None Reported Past Surgical History: Heart Catheterization, Heart Catheterization With Stent, Orthopedic Surgery Additional Past Surgical History / Comment(s): hemmorroids, rotater cuff left shoulder, agustin cataract with lens replacement, stents x5, sinus sx Past Anesthesia/Blood Transfusion Reactions: Previous Problems w/ Anesthesia Additional Past Anesthesia/Blood Transfusion Reaction / Comment(s): had hard time waking up post op x1 Date of Last Stent Placement:: 2014 Past Psychological History: No Psychological Hx Reported Smoking Status: Never smoker Past Alcohol Use History: None Reported Past Drug Use History: None Reported - Past Family History Father Additional Family Medical History / Comment(s): emphysema Course Vital Signs 01/03/18 01/03/18 01/03/18 19:42 20:45 21:54 Temperature 97.7 F Pulse Rate 57 L 59 L 51 L Respiratory 16 18 18 Rate Blood Pressure 160/76 159/89 172/91 O2 Sat by Pulse 96 96 95 Oximetry EKG is sinus bradycardia ventricular rate is 58 RI interval is 162 QRS duration is 90 QT/QTc is 428/429 review of this EKG does not reveal any ST elevation or ST depression noticed some flattening of the T-wave Plan now reassessment and CT [place] is still pending head CT is normal chest x-rays normal CBC, INR, troponin, EKG are unremarkable patient be admitted to Dr. Van service Dr. Alford to be consulted Disposition Clinical Impression: Headache, Dizziness Disposition: ADMITTED IP TO THIS HOSP Condition: Good Referrals: Rosalio Moore DO [Primary Care Provider] - 1-2 days
[2018-01-03] MEDS ORDERED: NON-FORMULARY DRUG (Rosuvastatin Calcium [Crestor] 5 MG) PO SCH (22:15)
--- NOTE | 2018-01-03 22:19 | CT ---
EXAMINATION TYPE: CT angio head neck DATE OF EXAM: 01/03/2018 HISTORY: Dizziness, head and neck pain. COMPARISON: CT DLP: 255.5 mGycm. Automated Exposure Control for Dose Reduction was Utilized. TECHNIQUE: CTA scan of the neck and head is performed with IV Contrast, patient injected with 65 mL of Isovue 370, axial images are obtained, coronal and sagittal reformatted images are reviewed. Three -D reconstructed images are created on an independent workstation and reviewed. FINDINGS: There is normal branching pattern of the great vessels on the aortic arch. There is normal contrast opacification of the vertebral arteries which are fairly symmetric. There is normal contrast opacification of the common internal and external carotid arteries bilateral ly. There is no evidence of carotid or vertebral artery aneurysm or dissection. Vessels appear widely patent. There is a minimal plaque at the right posterior carotid artery bifurcation without signific ant luminal narrowing. There is arterial flow in the anterior middle and posterior cerebral arteries. There is arterial flow in the vertebrobasilar artery system. There is patency of the right posterior communicating artery. The right posterior cerebral artery appears to filled mostly through the posterior communicating leona ry. I see no evidence of intracranial aneurysm or neovascularity. There is no mass effect. There is n o evidence of intracranial arterial stenosis. The remainder of exam is unremarkable. IMPRESSION: Negative CT angiogram of the neck. Negative CT angiogram of the brain. No evidence of hemodynamically significant stenosis.
--- NOTE | 2018-01-03 23:33 | HP ---
HISTORY AND PHYSICAL CHIEF COMPLAINTS: Headaches. HISTORY OF PRESENT ILLNESS: This 82-year-old gentleman with a past medical history of CAD, GERD, hypertension, hyperlipidemia being followed by Dr. Moore in the outpatient setting, was complaining of headache. The pain started in the back of the head, radiating along the vertex of the head to the nose area. The patient also complaining of throbbing pain, recurrent. Since earlier the patient also felt dizzy, patient also complaining of some floaters and visual difficulties in the right eye which is transient, at this time the patient came to [facility] and was admitted for further evaluation and treatment. Initially, CT scan CTA did not show any acute abnormality. The patient was admitted for further evaluation and treatment. There was no history of any fever, rigors, chills. No history any hematochezia or melena, chest pain, shortness of breath at this time. PAST MEDICAL HISTORY: History of stroke, CAD, GERD, hypertension, hyperlipidemia, history of CAD, stent. MEDICATIONS PRIOR TO ADMISSION: Home medications are: 1. Norvasc 2.5 mg q.h.s. 2. Crestor 5 mg Monday, Monday, Monday. 3. Prevacid 50 mg daily. 4. HydroDIURIL 12.5 mg q.a.m. 5. Plavix 75 mg q.h.s. 6. Aspirin 81 mg p.o. daily. ALLERGIES: ARE MULTIPLE: AMOXICILLIN, VALIUM, ENTEX, DILAUDID, REGLAN, NORFLEX, AUGMENTIN , VENTOLIN, LIPITOR, KEFLEX, CODEINE, NEXIUM, DARVOCET, SULFUR ANTIBIOTICS, ANTIHISTAMINES. FAMILY HISTORY: History of emphysema in the family. SOCIAL HISTORY: History of smoking. No history of alcohol. REVIEW OF SYSTEMS: ENT: Mentioned earlier. CARDIOVASCULAR: No angina, palpitations. RESPIRATORY: No cough or hemoptysis. GI: No nausea or vomiting. : No dysuria. NERVOUS: As mentioned earlier. ALLERGY/IMMUNOLOGY: No asthma or hay fever. MUSCULOSKELETAL: As mentioned earlier. HEMATOLOGY/ONCOLOGY: No history of anemia. ENDOCRINE: No history of diabetes, hypothyroidism. CONSTITUTIONAL: As mentioned earlier. DERMATOLOGY: Negative. RHEUMATOLOGY: Negative. PSYCHIATRY: As mentioned earlier. PHYSICAL EXAMINATION: Alert and oriented x3. Pulse 55, blood pressure 171/84, respirations 18, temperature 98 degrees, pulse ox 95% on room air. HEENT: Conjunctivae normal. Oral mucosa moist. NECK: No jugular venous distention. No carotid bruits. No lymph node enlargement. CARDIOVASCULAR: S1, S2 muffled. No S3, S4. RESPIRATORY: Breath sounds diminished in the bases. No rhonchi. No crackles. ABDOMEN: Soft, nontender. No mass palpable. LEGS: No edema. No swelling. NERVOUS SYSTEM: Higher functions as mentioned earlier. Moves all 4 limbs. No focal motor or sensory deficits. Eye movements in all directions. No nystagmus. No sensory or cerebellar dysfunction. LYMPHATIC: No lymphadenopathy in neck or axillae. SKIN: No ulcer, rash or bleeding. JOINTS: No active deforming arthropathy. LABS: CBC, CMP within normal limits. ASSESSMENT: 1. Headache and visual difficulties, possible acute transient ischemic attack. 2. 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 3. History of stroke. 4. History of gastroesophageal reflux disease. 5. History of coronary artery disease, stent. 6. Hypertension. 7. Hyperlipidemia. 8. History of degenerative joint disease. RECOMMENDATIONS AND DISCUSSION: In this 82-year-old gentleman who presented with multiple complex medical issues , we will monitor the patient closely. Continue the current medical management and symptomatology treatment. Will continue with antiplatelet agents, DVT prophylaxis. Neurology consultation. Symptomatic treatment of the pain. Prognosis guarded because of multiple complex medical medical issues. Further recommendations to follow. A copy of this dictation will be forwarded to Dr. Moore, who is the primary physician. MMDINAH / DAINN: [id number] / MTDD
[2018-01-03 23:35] VITALS: BMI 25.0
[2018-01-04 07:47] LABS: Basophils # (A) 0.1 k/uL (0-0.2); Basophils % (A) 1 %; Eosinophils # (A) 0.3 k/uL (0-0.7); Eosinophils % (A) 3 %; HGB 15.1 gm/dL (13.0-17.5); Lymphocytes # (A) 2.8 k/uL (1.0-4.8); Lymphocytes % (A) 36 %; MCH 31.8 pg (25.0-35.0); MCHC 32.8 g/dL (31.0-37.0); MCV 96.8 fL (80.0-100.0); Mean Platelet Volume 7.2; Monocytes # (A) 0.6 k/uL (0-1.0); Monocytes % (A) 8 %; Neutrophils # (A) 3.9 k/uL (1.3-7.7); Neutrophils % (A) 51 %; Platelet Count 229 k/uL (150-450); RBC 4.75 m/uL (4.30-5.90); RDW 13.3 % (11.5-15.5); WBC 7.7 k/uL (3.8-10.6)
[2018-01-04] MEDS: HYDROCHLOROTHIAZIDE 12.5 MG CAP PO SCH ×2 (07:48→07:50)
[2018-01-04 07:54] LABS: Calcium 9.4 mg/dL (8.4-10.2); Potassium 4.2 mmol/L (3.5-5.1)
[2018-01-04] MEDS ORDERED: HEPARIN SODIUM,PORCINE 5,000 UNIT/ML 1 ML VIAL SQ SCH (09:00)
[2018-01-04] MEDS ORDERED: ASPIRIN 81 MG PO SCH (09:00)
[2018-01-04] MEDS ORDERED: PANTOPRAZOLE 40 MG TABLET PO SCH (09:00)
[2018-01-04 15:43] VITALS: BP 148/73; PULSE 61; RESP 22; TEMP 97.8
--- NOTE | 2018-01-04 19:23 | P.CNNES ---
History of Present Illness Consult date: 01/04/18 Requesting physician: Rubén Wen Reason for Consult: headache Chief complaint: unilateral right-sided head pain History of Present Illness: Neurology is consulting on an 82-year-old male with a history of CAD, GERD, hypertension, hyperlipidemia. Patient had complained of head pain posterior to anterior on the right side of his head as well as associated cervical paraspinal stiffness of acute onset. Patient states he felt dizzy with intermittent visual floaters. Floaters resolved within seconds. Patient was admitted for further evaluation. CT scan of the brain was negative/ noncontributory, CT angiogram did not show any acute abnormality. On contact, patient was alert and oriented x3, seated at the bedside, spouse in the room. Patient states that he does have intermittent cervical spine pain that is midline nonradiating. Patient stated that if he pushed at in the posterior aspect of his skull at the base adjacent to the cervical vertebra, patient could make his pain dissipate. Patient states the occurrences occur at random, intermittently but this was more significant in intensity since versus previous. 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 "LOOKS LIKE A STEAMED UP WINDOW" ALL THE TIME, POST OP LENS REPLACEMENT Last Myocardial Infarction Date:: 06/2016 History of Any Multi-Drug Resistant Organisms: None Reported Past Surgical History: Heart Catheterization, Heart Catheterization With Stent, Orthopedic Surgery Additional Past Surgical History / Comment(s): hemmorroids, rotater cuff left shoulder, agustin cataract with lens replacement, stents x5, sinus sx Past Anesthesia/Blood Transfusion Reactions: Previous Problems w/ Anesthesia Additional Past Anesthesia/Blood Transfusion Reaction / Comment(s): had hard time waking up post op x1 Date of Last Stent Placement:: 10/17/2014 Past Psychological History: No Psychological Hx Reported Smoking Status: Never smoker Past Alcohol Use History: None Reported Past Drug Use History: None Reported - Past Family History Father Additional Family Medical History / Comment(s): emphysema Medications and Allergies Home Medications Medication Instructions Recorded Confirmed Type Aspirin 81 mg PO DAILY 10/16/14 01/03/18 History Lansoprazole [Prevacid] 15 mg PO QAM 10/16/14 01/03/18 History Rosuvastatin Calcium [Crestor] 5 mg PO MOWEFR 10/16/14 01/03/18 History Clopidogrel [Plavix] 75 mg PO HS 01/15/17 01/03/18 History Hydrochlorothiazide [Hydrodiuril] 12.5 mg PO QAM 01/15/17 01/03/18 History Acetaminophen Tab [Tylenol] 650 mg PO Q6HR PRN tab 01/04/18 Rx amLODIPine [Norvasc] 2.5 mg PO HS #0 01/04/18 01/03/18 Rx Allergies Allergy/AdvReac Type Severity Reaction Status Date / Time amoxicillin trihydrate Allergy Itching/PASSED Verified 01/03/18 20:19 [From Augmentin] OUT diazepam [From Valium] Allergy Unknown Verified 01/03/18 20:19 guaifenesin [From Entex LA] Allergy Unknown Verified 01/03/18 20:19 hydromorphone HCl Allergy Nausea & Verified 01/03/18 20:19 [From Dilaudid] Vomiting metoclopramide [From Reglan] Allergy Unknown Verified 01/03/18 20:19 orphenadrine [From Norflex] Allergy Unknown Verified 01/03/18 20:19 phenylephrine [From Entex LA] Allergy Unknown Verified 01/03/18 20:19 phenylpropanolamine Allergy Unknown Verified 01/03/18 20:19 [From Entex LA] potassium clavulanate Allergy Itching/PASSED Verified 01/03/18 20:19 [From Augmentin] OUT potassium iodide Allergy Unknown Verified 01/03/18 20:19 tolmetin [From Tolectin] Allergy itching/passed Verified 01/03/18 20:19 out albuterol [From Ventolin HFA] AdvReac Dizzy Verified 01/03/18 20:19 atorvastatin calcium AdvReac EYE "HAD Verified 01/03/18 20:19 [From Lipitor] BLOOD IN IT" cephalexin monohydrate AdvReac Nausea & Verified 01/03/18 20:19 [From Keflex] Vomiting codeine AdvReac SEVERE Verified 01/03/18 20:19 HEADACHE esomeprazole magnesium AdvReac SEVERE Verified 01/03/18 20:19 [From Nexium] HEADACHE propoxyphene AdvReac "TONGUE Verified 01/03/18 20:19 [From Darvocet-N] PEELED" Sulfa (Sulfonamide AdvReac Nausea & Verified 01/03/18 20:19 Antibiotics) Vomiting ANTIHISTAMINES AdvReac UNABLE TO Uncoded 01/15/17 18:42 URINATE Physical Examination - Vital Signs Vital Signs: Vital Signs Temp Pulse Pulse Resp BP BP Pulse Ox 01/04/18 14:45 97.8 F 61 22 148/73 95 01/04/18 05:00 96.9 F L 53 L 16 132/86 97 01/03/18 23:47 51 L 01/03/18 23:12 96.0 F L 51 L 16 161/90 96 01/03/18 23:00 96.0 F L 51 L 16 161/81 97 01/03/18 22:33 98.0 F 55 L 18 171/84 95 01/03/18 21:54 51 L 18 172/91 95 01/03/18 20:45 59 L 18 159/89 96 01/03/18 19:42 97.7 F 57 L 16 160/76 96 Intake and Output 01/04/18 01/04/18 01/04/18 06:59 14:59 22:59 Intake Total 1140 Balance 1140 Intake: Intake, IV Titration 600 Amount Sodium Chloride 0.9% 1, 600 000 ml @ 100 mls/hr IV . Q10H STA Rx#:[id number] Oral 540 Other: # Voids 2 Weight 70.505 kg General appearance: Alert & oriented x3, no apparent distress. Head: Atraumatic, normocephalic, normal inspection Eyes: Well appearance, PERRLA, EOMI. Absent scleral icterus, conjunctival injection, nystagmus, periorbital swelling. Ear, nose and throat: Normal exam, mucous membranes moist Neck: Normal inspection, absent tenderness, lymphadenopathy. Respiratory: No increased work of breathing Cardiovascular: Regular rate, rhythm GI/abdominal: No guarding Extremities: Full range of motion, normal capillary refill, no tenderness, pedal edema joint swelling, calf tenderness. musculoskeletal: Cervical paraspinal stiffness midline nonradiating, high cervical, adjacent cervical paraspinal stiffness, increased pain with lateral rotation as well as extension of the head and neck. Patient does experience a pulling/tugging sensation with flexion of the neck. Neurological: cranial nerves II through XII intact no lateralizing weakness no seizure activity noted on physical exam no pronator drift and no nystagmus. Left lower extremity: 5/5 Right lower extremity: 5/5 Left upper extremity: 5/5 Right upper extremity:5 /5 Sensation: Left lower extremity: normal Right lower extremity: normal Left upper extremity: normal Right upper extremity:normal Psychological: Mood and Affect appropriate for setting Results - Laboratory Findings CBC and BMP: 01/04/18 07:03 01/04/18 07:03 Abnormal Lab Findings: Abnormal Labs 01/03/18 01/04/18 19:58 07:03 Chloride 108 H POC Glucose (mg/dL) 100 H Assessment and Plan (1) Occipital neuritis Status: Acute Code(s): M54.81 - OCCIPITAL NEURALGIA SNOMED Code(s): 68916617 (2) Cervicalgia Status: Acute Code(s): M54.2 - CERVICALGIA SNOMED Code(s): 98290074 (3) Myalgia Status: Acute Code(s): M79.1 - MYALGIA SNOMED Code(s): 86272040 Plan: On physical exam, patient does have findings consistent with cervical facet etiology. Patient has reproducible pain with lateral rotation of the head and neck bilaterally as well as extension. Patient does have reproducible pain with flexion of the neck that is described as pulling and tugging consistent with facet etiology as well. On palpation of the greater occipital nerve bilaterally, patient does have tenderness over the right greater occipital nerve. Tenderness is fairly significant. Findings are consistent with occipital neuralgia. Diagnostic workup recommended: X-ray cervical spine with flexion extension MRI cervical spine Treatment options: Discussed treatment options including risks, benefits and alternatives with the patient. Patient agreed to proceed with treatment as noted below: follow-up in the outpatient setting for imaging noted above Discussed possible cervical medial branch blocks as well as greater occipital nerve block to decrease the patient's pain to a tolerable level. Recommended follow-up with inpatient auditor for further investigation related to the eye complaint although resolved. Patient expressed understanding. Patient to follow-up in the outpatient setting within 14 days.
[2018-01-04] MEDS ORDERED: CLOPIDOGREL 75 MG TAB PO SCH (21:00)
[2018-01-04] MEDS ORDERED: amLODIPine 2.5 MG TAB PO SCH (21:00)
[2018-01-04] MEDS ORDERED: MELATONIN 3 MG TABLET PO SCH (21:00)
--- NOTE | 2018-01-04 21:25 | DS ---
DISCHARGE SUMMARY FINAL DIAGNOSES: 1. Headache and visual difficulties, possible acute transient ischemic attack versus neuralgia. 2. 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 3. History of stroke. 4. History of gastroesophageal reflux disease. 5. History of coronary artery disease. 6. History of hypertension. 7. Hyperlipidemia. 8. History of degenerative joint disease. DISCHARGE DISPOSITION: This patient is being discharged in stable condition with guarded prognosis. HISTORY OF PRESENT ILLNESS: This 82-year-old gentleman with past medical history of multiple medical problems was admitted with neck pain radiating to the vertex. The patient treated symptomatically. Neurovascular workup was basically negative and the patient is discharged home in stable with guarded prognosis. Neurology saw the patient. The pain caused by cervical DJD is also considered. The patient was recommended not to exert or twist the neck severely. DISCHARGE ADVICE AND MEDICATIONS: 1. Discharge diet is cardiac diet. 2. Activity limited until followup. 3. Follow up with Dr. Moore in 2-3 days. 4. Follow up neurology was recommended. MEDICATIONS ARE: 1. Ecotrin 81 mg daily. 2. Plavix 75 mg q.h.s. 3. HydroDIURIL 12.5 mg q.a.m. 4. Prevacid 15 mg q.a.m. 5. Crestor 5 mg Monday, Monday, Monday. 6. Tylenol 650 q.6h p.r.n. 7. Norvasc 2.5 mg q.h.s. MMCOLEMANL / DAINN: [id number] /
== END 2018-01-04 16:30 | disposition home or self-care (01) ==
LOC: EC 19:31 → 5MS5E 22:05
PROVIDERS: ADMIT Hospitalist; ATTEND Hospitalist
DX: R51 Headache (principal); M54.2 Cervicalgia; H43.391 Other vitreous opacities, right eye; M79.1 Myalgia; H53.9 Unspecified visual disturbance; K21.9 Gastro-esophageal reflux disease without esophagitis; I25.10 Atherosclerotic heart disease of native coronary artery without angina pectoris; I10 Essential (primary) hypertension; E78.5 Hyperlipidemia, unspecified; M19.90 Unspecified osteoarthritis, unspecified site; Z79.82 Long term (current) use of aspirin; Z79.02 Long term (current) use of antithrombotics/antiplatelets; Z79.899 Other long term (current) drug therapy; Z88.1 Allergy status to other antibiotic agents; Z88.5 Allergy status to narcotic agent; Z88.0 Allergy status to penicillin; Z88.6 Allergy status to analgesic agent; Z88.2 Allergy status to sulfonamides; Z88.8 Allergy status to other drugs, medicaments and biological substances; Z98.42 Cataract extraction status, left eye; Z98.41 Cataract extraction status, right eye; Z96.1 Presence of intraocular lens; Z95.5 Presence of coronary angioplasty implant and graft; Z86.73 Personal history of transient ischemic attack (TIA), and cerebral infarction without residual deficits; Z82.5 Family history of asthma and other chronic lower respiratory diseases
CPT/HCPCS: 99285 ×2; 96360 ×2; 96361 ×2; 96372; 36415; 93005; 80053; 80048; 82550; 82553; 84484; 85025 ×2; 85610; 85730; 71046; 70496; 70450; 70498; G0378 ×2; J1644; Q9967

== ENCOUNTER 2018-02-21 22:36 | Emergency (ER) | payer MEDICARE, BC ==
[2018-02-21 22:41] VITALS: TEMP 98.1
[2018-02-22] MEDS ORDERED: BARIUM SULFATE 450 ML ORAL.SUSP BOTTLE PO PRN (00:12)
[2018-02-22 00:33] LABS: Basophils # (A) 0.1 k/uL (0-0.2); Basophils % (A) 1 %; Eosinophils # (A) 0.2 k/uL (0-0.7); Eosinophils % (A) 3 %; HGB 15.1 gm/dL (13.0-17.5); Lymphocytes # (A) 2.7 k/uL (1.0-4.8); Lymphocytes % (A) 33 %; MCH 30.9 pg (25.0-35.0); MCHC 32.7 g/dL (31.0-37.0); Mean Platelet Volume 6.9; Monocytes # (A) 0.7 k/uL (0-1.0); Monocytes % (A) 9 %; Neutrophils # (A) 4.3 k/uL (1.3-7.7); Neutrophils % (A) 53 %; Platelet Count 211 k/uL (150-450); RBC 4.87 m/uL (4.30-5.90); RDW 13.1 % (11.5-15.5); WBC 8.1 k/uL (3.8-10.6)
[2018-02-22 00:37] LABS: Appearance,Urine Clear (Clear); Bilirubin,Urine Negative (Negative); Blood,Urine Negative (Negative); Color,Urine Light Yellow; Glucose,Urine (UA) Negative (Negative); Ketones,Urine Negative (Negative); Leukocyte Esterase,Urine Negative (Negative); Nitrite,Urine Negative (Negative); PH, Urine 6.5 (5.0-8.0); Protein,Urine Negative (Negative); Specific Gravity,Urine 1.006 (1.001-1.035); Urobilinogen,Urine <2.0 mg/dL (<2.0)
[2018-02-22 00:42] LABS: MCV 94.4 fL (80.0-100.0)
[2018-02-22 00:43] LABS: ALT 29 U/L (21-72); AST 32 U/L (17-59); Albumin 4.3 g/dL (3.5-5.0); Alkaline Phosphatase 57 U/L (38-126); Amylase 63 U/L (30-110); Anion Gap 8 mmol/L; Blood Urea Nitrogen 20 mg/dL (9-20); Calcium 9.4 mg/dL (8.4-10.2); Carbon Dioxide 24 mmol/L (22-30); Chloride 108 mmol/L (98-107); Glucose 101 mg/dL (74-99); Lipase 54 U/L (23-300); Potassium 4.3 mmol/L (3.5-5.1); Sodium 140 mmol/L (137-145); Total Bilirubin 0.7 mg/dL (0.2-1.3); Total Protein 7.3 g/dL (6.3-8.2)
--- NOTE | 2018-02-22 02:13 | CT ---
EXAMINATION TYPE: CT abdomen pelvis w con DATE OF EXAM: 02/22/2018 COMPARISON: None HISTORY: No prior, constipation and gen abd pain for [address] DLP: 577.90 mGycm Automated exposure control for dose reduction was used. TECHNIQUE: Helical acquisition of images was performed from the lung bases through the pelvis. CONTRAST: Performed with Oral Contrast and with IV Contrast, patient injected with 100 mL of Isovue 300. FINDINGS: Lung bases are clear. There is no pleural effusion. There is hiatal hernia. There is no pericardial e ffusion. Liver shows no focal defect. Gallbladder is somewhat contracted. Bile ducts are not dilated. Spleen a ppears normal. There is no pancreatic mass. There is no adrenal mass. There are bilateral renal cortical cysts that measure up to 5.5 cm. There i s no hydronephrosis. Ureters are not dilated. There is normal renal cortical function. There is no retroperitoneal adenopathy. There is no mesenteric adenopathy or edema. Bladder distends smoothly. There is no free fluid in the pelvis. There are scattered sigmoid divertic nohemy. There is no evidence of diverticulitis. I see no intestinal wall thickening. There are no dilate d loops. There is some retained fecal material throughout the colon. The appendix appears normal. The re is no sign of free air. The bony structures are intact. There is disc space narrowing and multilev el vacuum disc phenomenon. I see no bony destructive process. Abdominal soft tissues are unremarkable . IMPRESSION: MILD SIGMOID DIVERTICULOSIS WITHOUT DIVERTICULITIS. MULTIPLE SIMPLE RENAL CORTICAL CYSTS. NO RENAL OB STRUCTION. NORMAL APPENDIX. HIATAL HERNIA. MILD CONSTIPATION.
--- NOTE | 2018-02-22 02:33 | ED ---
Abdominal Pain HPI - General Chief Complaint: Abdominal Pain Stated Complaint: Constipation Time Seen by Provider: 02/21/18 23:27 Source: patient Mode of arrival: ambulatory Limitations: no limitations - History of Present Illness Initial Comments: This patient is an 82-year-old man who presents to be evaluated for abdominal pain. He states that he had the sensation initially that this was constipation. He took milk of magnesia and also a fiber supplement without having much success. He also tried a home enema without relief. Patient states previously when he has felt like this it was due to constipation but he was able to obtain relief with the milk of magnesia. Complaint: abdominal pain -: hour(s) Location: diffuse Radiation: none Migration to: no migration Severity: moderate Quality: cramping, fullness, other (Bloating) Consistency: constant Improves With: nothing Worsens With: nothing Associated Symptoms: nausea, constipation - Related Data Home Medications Medication Instructions Recorded Confirmed Aspirin 81 mg PO DAILY 10/16/14 01/03/18 Lansoprazole [Prevacid] 15 mg PO QAM 10/16/14 01/03/18 Rosuvastatin Calcium [Crestor] 5 mg PO MOWEFR 10/16/14 01/03/18 Clopidogrel [Plavix] 75 mg PO HS 01/15/17 01/03/18 Hydrochlorothiazide [Hydrodiuril] 12.5 mg PO QAM 01/15/17 01/03/18 Previous Rx's Medication Instructions Recorded Acetaminophen Tab [Tylenol] 650 mg PO Q6HR PRN tab 01/04/18 amLODIPine [Norvasc] 2.5 mg PO HS #0 01/04/18 Lactulose 10 gm PO DAILY #500 ml 02/22/18 Allergies Allergy/AdvReac Type Severity Reaction Status Date / Time amoxicillin trihydrate Allergy Itching/PASSED Verified 01/03/18 20:19 [From Augmentin] OUT diazepam [From Valium] Allergy Unknown Verified 01/03/18 20:19 guaifenesin [From Entex LA] Allergy Unknown Verified 01/03/18 20:19 hydromorphone HCl Allergy Nausea & Verified 01/03/18 20:19 [From Dilaudid] Vomiting metoclopramide [From Reglan] Allergy Unknown Verified 01/03/18 20:19 orphenadrine [From Norflex] Allergy Unknown Verified 01/03/18 20:19 phenylephrine [From Entex LA] Allergy Unknown Verified 01/03/18 20:19 phenylpropanolamine Allergy Unknown Verified 01/03/18 20:19 [From Entex LA] potassium clavulanate Allergy Itching/PASSED Verified 01/03/18 20:19 [From Augmentin] OUT potassium iodide Allergy Unknown Verified 01/03/18 20:19 tolmetin [From Tolectin] Allergy itching/passed Verified 01/03/18 20:19 out albuterol [From Ventolin HFA] AdvReac Dizzy Verified 01/03/18 20:19 atorvastatin calcium AdvReac EYE "HAD Verified 01/03/18 20:19 [From Lipitor] BLOOD IN IT" cephalexin monohydrate AdvReac Nausea & Verified 01/03/18 20:19 [From Keflex] Vomiting codeine AdvReac SEVERE Verified 01/03/18 20:19 HEADACHE esomeprazole magnesium AdvReac SEVERE Verified 01/03/18 20:19 [From Nexium] HEADACHE propoxyphene AdvReac "TONGUE Verified 01/03/18 20:19 [From Darvocet-N] PEELED" Sulfa (Sulfonamide AdvReac Nausea & Verified 01/03/18 20:19 Antibiotics) Vomiting ANTIHISTAMINES AdvReac UNABLE TO Uncoded 01/15/17 18:42 URINATE Review of Systems ROS Statement: Those systems with pertinent positive or pertinent negative responses have been documented in the HPI. ROS Other: All systems not noted in ROS Statement are negative. Constitutional: Denies: fever, chills Respiratory: Denies: cough, dyspnea Cardiovascular: Denies: chest pain, palpitations, edema Gastrointestinal: Reports: as per HPI, abdominal pain, nausea, constipation. Denies: vomiting, diarrhea, hematemesis, melena, hematochezia Genitourinary: Denies: dysuria, hematuria Musculoskeletal: Denies: back pain Skin: Denies: rash Neurological: Denies: headache, weakness, numbness Past Medical History Past Medical History: Coronary Artery Disease (CAD), GERD/Reflux, Hyperlipidemia , Hypertension Additional Past Medical History / Comment(s): 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 "LOOKS LIKE A STEAMED UP WINDOW" ALL THE TIME, POST OP LENS REPLACEMENT Last Myocardial Infarction Date:: 06/2016 History of Any Multi-Drug Resistant Organisms: None Reported Past Surgical History: Heart Catheterization, Heart Catheterization With Stent, Orthopedic Surgery Additional Past Surgical History / Comment(s): hemmorroids, rotater cuff left shoulder, agustin cataract with lens replacement, stents x5, sinus sx Past Anesthesia/Blood Transfusion Reactions: Previous Problems w/ Anesthesia Additional Past Anesthesia/Blood Transfusion Reaction / Comment(s): had hard time waking up post op x1 Date of Last Stent Placement:: 10/17/2014 Past Psychological History: No Psychological Hx Reported Smoking Status: Never smoker Past Alcohol Use History: None Reported Past Drug Use History: None Reported - Past Family History Father Additional Family Medical History / Comment(s): emphysema General Exam Limitations: no limitations General appearance: alert, in no apparent distress Head exam: Present: atraumatic, normocephalic Eye exam: Present: normal appearance. Absent: scleral icterus, conjunctival injection ENT exam: Present: normal oropharynx Neck exam: Present: normal inspection Respiratory exam: Present: normal lung sounds bilaterally. Absent: respiratory distress, wheezes, rales, rhonchi, stridor Cardiovascular Exam: Present: regular rate, normal rhythm, normal heart sounds. Absent: systolic murmur, diastolic murmur, rubs, gallop GI/Abdominal exam: Present: soft, normal bowel sounds. Absent: distended, tenderness, guarding, rebound, mass, bruit, pulsatile mass Extremities exam: Present: normal inspection, normal capillary refill. Absent: pedal edema, calf tenderness Back exam: Present: normal inspection. Absent: CVA tenderness (R), CVA tenderness (L) Neurological exam: Present: alert Skin exam: Present: warm, dry, intact, normal color. Absent: rash Course Vital Signs 02/21/18 02/22/18 22:39 03:19 Temperature 98.1 F 98.1 F Pulse Rate 55 L 69 Respiratory 20 19 Rate Blood Pressure 157/85 152/98 O2 Sat by Pulse 97 98 Oximetry Medical Decision Making - Lab Data Result diagrams: 02/21/18 23:35 02/21/18 23:35 Lab Results 02/21/18 02/21/18 02/21/18 Range/Units 23:35 23:35 23:35 WBC 8.1 (3.8-10.6) k/uL RBC 4.87 (4.30-5.90) m/uL Hgb 15.1 (13.0-17.5) gm/dL Hct 46.0 (39.0-53.0) % MCV 94.4 D (80.0-100.0) fL MCH 30.9 (25.0-35.0) pg MCHC 32.7 (31.0-37.0) g/dL RDW 13.1 (11.5-15.5) % Plt Count 211 (150-450) k/uL Neutrophils % 53 % Lymphocytes % 33 % Monocytes % 9 % Eosinophils % 3 % Basophils % 1 % Neutrophils # 4.3 (1.3-7.7) k/uL Lymphocytes # 2.7 (1.0-4.8) k/uL Monocytes # 0.7 (0-1.0) k/uL Eosinophils # 0.2 (0-0.7) k/uL Basophils # 0.1 (0-0.2) k/uL Sodium 140 (137-145) mmol/L Potassium 4.3 (3.5-5.1) mmol/L Chloride 108 H (98-107) mmol/L Carbon Dioxide 24 (22-30) mmol/L Anion Gap 8 mmol/L BUN 20 (9-20) mg/dL Creatinine 0.87 (0.66-1.25) mg/dL Est GFR (CKD-EPI)AfAm >90 (>60 ml/min/1.73 sqM) Est GFR (CKD-EPI)NonAf 82 (>60 ml/min/1.73 sqM) Glucose 101 H (74-99) mg/dL Calcium 9.4 (8.4-10.2) mg/dL Total Bilirubin 0.7 (0.2-1.3) mg/dL AST 32 (17-59) U/L ALT 29 (21-72) U/L Alkaline Phosphatase 57 (38-126) U/L Total Protein 7.3 (6.3-8.2) g/dL Albumin 4.3 (3.5-5.0) g/dL Amylase 63 (30-110) U/L Lipase 54 (23-300) U/L Urine Color Light Yellow Urine Appearance Clear (Clear) Urine pH 6.5 (5.0-8.0) Ur Specific [place] 1.006 (1.001-1.035) Urine Protein Negative (Negative) Urine Glucose (UA) Negative (Negative) Urine Ketones Negative (Negative) Urine Blood Negative (Negative) Urine Nitrite Negative (Negative) Urine Bilirubin Negative (Negative) Urine Urobilinogen <2.0 (<2.0) mg/dL Ur Leukocyte Esterase Negative (Negative) Disposition Clinical Impression: Abdominal pain, Constipation Disposition: HOME SELF-CARE Condition: Good Instructions: Constipation (ED) Prescriptions: Lactulose 10 gm PO DAILY #500 ml Is patient prescribed a controlled substance at d/c from ED?: No Referrals: Rosalio Moore DO [Primary Care Provider] - 1-2 days
[2018-02-22] MEDS ORDERED: PEG 3350-NA SULF,BICARB,CL/KCL 4,000 ML BOTTLE PO ONE (02:53)
[2018-02-22 03:23] VITALS: BP 152/98; PULSE 69; RESP 19
== END 2018-02-22 03:21 | disposition home or self-care (01) ==
LOC: EC 22:36
DX: K59.00 Constipation, unspecified (principal); I25.10 Atherosclerotic heart disease of native coronary artery without angina pectoris; K21.9 Gastro-esophageal reflux disease without esophagitis; E78.5 Hyperlipidemia, unspecified; I10 Essential (primary) hypertension; Z95.818 Presence of other cardiac implants and grafts; Z95.5 Presence of coronary angioplasty implant and graft; Z79.82 Long term (current) use of aspirin; Z79.02 Long term (current) use of antithrombotics/antiplatelets; Z79.899 Other long term (current) drug therapy; Z88.0 Allergy status to penicillin; Z88.8 Allergy status to other drugs, medicaments and biological substances; Z88.5 Allergy status to narcotic agent; Z88.1 Allergy status to other antibiotic agents; Z88.2 Allergy status to sulfonamides
CPT/HCPCS: 36415; 80053; 82150; 83690; 85025; 81003; 74177; 99284; Q9967

== ENCOUNTER → 2018-03-02 | Outpatient (CLI) | payer MEDICARE, BC ==
--- NOTE | 2018-03-02 09:36 | XR ---
EXAMINATION TYPE: XR lumbar spine 2 or 3V DATE OF EXAM: 03/02/2018 CLINICAL HISTORY: pain TECHNIQUE: Three views of the lumbar spine are submitted. COMPARISON: None. FINDINGS: There are 5 lumbar type vertebral bodies identified. The lumbar spine shows satisfactory alignment w ithout evidence of acute fracture or dislocation. Vertebral body heights are within normal limits. Moderate to severe multilevel degenerative disc disease and spondylosis. Lower lumbar facet joint art hropathy. The overlying soft tissue appears unremarkable. IMPRESSION: No acute fracture or dislocation is seen in the lumbar spine. ICD 10 NO FRACTURE, INITIAL EVALUATION
== END | disposition home or self-care (01) ==
LOC: RADXRYALE 09:11
PROVIDERS: ATTEND Family Medicine
DX: M54.5 Low back pain (principal)
CPT/HCPCS: 72100

== ENCOUNTER → 2018-03-30 | Outpatient (CLI) | payer MEDICARE, BC ==
--- NOTE | 2018-03-30 11:11 | XR ---
EXAMINATION TYPE: XR ribs RT w pa chest xray DATE OF EXAM: 03/30/2018 COMPARISON: NONE HISTORY: Pain TECHNIQUE: Single view of the chest 4 views of the ribs are submitted. FINDINGS: The lungs are clear. No Evidence for pneumothorax. No evidence for focal contusion. Medi astinal structures are midline. Evaluation of the ribs fails to demonstrate evidence for displaced r ib fracture or secondary sign of rib fracture. IMPRESSION: Negative study
== END | disposition home or self-care (01) ==
LOC: RADXRYALE 09:27
PROVIDERS: ATTEND Family Medicine
DX: R07.89 Other chest pain (principal)

== ENCOUNTER 2018-05-01 07:53 | Day surgery (SDC) | payer MEDICARE, BC ==
[2018-04-27 16:00] VITALS: BMI 25.0
[~2018-05-01 07:53] MED LIST: SODIUM CHLORIDE 0.9% 500 ML 500 ML IV SCH
[2018-05-01 08:35] VITALS: TEMP 97.3
--- NOTE | 2018-05-01 09:27 | P.PCN ---
Date of Procedure: 05/01/18 Procedure(s) Performed: PROCEDURE: Right intraarticular shoulder joint injection under fluoroscopy PREOPERATIVE DIAGNOSIS: Right shoulder Arthralgia POSTOPERATIVE DIAGNOSIS: Right shoulder artharalgia ANESTHESIA: Local infiltration with lidocaine 1% 2 mL ( NO IV sedation ) EBL: None. COMPLICATIONS: None. IV FLUIDS: 100 ml of Normal Saline PROCEDURE INDICATION: Right shoulder pain secondary to osteoarthritis. PROCEDURE DESCRIPTION: The patient was seen and identified in the preoperative area. Risks, benefits, complications, and alternatives were discussed with the patient. The patient agreed to proceed with the procedure and signed the consent. The patient was placed in the supine position on the procedure table and the right shoulder was prepped and draped in the usual sterile fashion. We used sterile gloves for the procedure. The medial joint space was identified by fluoroscopy. Block solution was prepared with 40 mg of Depo-Medrol in 6 mL of 0.5% Ropivacaine preservative-free. A 25-gauge needle was advanced through the aforementioned site into the intraarticular space, and after negative aspiration , the block solution was injected. Skin was cleansed, and bandage was applied. DISPOSITION / PLANS: The patient was taken back to recovery room in a stable position. . Patient was discharged from the recovery room, accompanied by an adult, after meeting discharge criteria. Home discharge instructions were given to the patient. The patient was reexamined prior to discharge. The patient will schedule a follow up visit in the clinic in 2-4 weeks.
[2018-05-01 09:46] VITALS: BP 168/91; PULSE 45; RESP 18
--- NOTE | 2018-05-01 11:18 | FL ---
EXAMINATION TYPE: FL guided pain mgmt statistic DATE OF EXAM: 05/01/2018 FLUOROSCOPY Fluoroscopy time of 1 seconds was used during right shoulder bursal injection. 1 image/s document/s the procedure.
== END 2018-05-01 09:58 | disposition home or self-care (01) ==
LOC: ORPAIN 07:53
PROVIDERS: ATTEND Specialist
DX: G89.29 Other chronic pain (principal); M75.121 Complete rotator cuff tear or rupture of right shoulder, not specified as traumatic; M19.90 Unspecified osteoarthritis, unspecified site; M51.36 Other intervertebral disc degeneration, lumbar region; I25.10 Atherosclerotic heart disease of native coronary artery without angina pectoris; K21.9 Gastro-esophageal reflux disease without esophagitis; E78.5 Hyperlipidemia, unspecified; I10 Essential (primary) hypertension; H54.61 Unqualified visual loss, right eye, normal vision left eye; Z95.5 Presence of coronary angioplasty implant and graft; Z79.02 Long term (current) use of antithrombotics/antiplatelets; Z79.82 Long term (current) use of aspirin; Z79.899 Other long term (current) drug therapy; Z88.5 Allergy status to narcotic agent; Z88.0 Allergy status to penicillin; Z88.8 Allergy status to other drugs, medicaments and biological substances; Z85.828 Personal history of other malignant neoplasm of skin
CPT/HCPCS: 20610; J1030

== ENCOUNTER → 2018-08-02 | Outpatient (CLI) | payer MEDICARE, BC ==
--- NOTE | 2018-08-03 10:10 | MR ---
EXAMINATION TYPE: MR brain wo/w con DATE OF EXAM: 08/02/2018 COMPARISON: MRI brain December 15, 2016. CT brain January 03, 2018 HISTORY: Occipital neuralgia/headache TECHNIQUE: Multiplanar, multisequence images of the brain and brainstem is performed without and with IV contras t, utilizing 7 mL intravenous Gadavist . FINDINGS: Diffusion weighted images demonstrate no evidence of a recent infarct or other diffusion ab normality. There is no worrisome extra-axial fluid collection. There is mild diffuse ventricular and sulcal prominence redemonstrated. Some small scattered foci of T2 hyperintensity are once again seen throughout the deep and periventricular white matter most prominent periventricular level. Midline s tructures demonstrate normal morphology. The craniocervical junction appears within normal limits. Post contrast images demonstrate no abnormal enhancement. The dural venous sinuses appear patent. Few small mucous retention cysts or polyps scattered throughout the bilateral maxillary sinuses are pres ent. Mild mucosal thickening bilateral ethmoid sinuses is redemonstrated. Thinning of bilateral lense s suggests prior cataract surgery similar to prior. IMPRESSION: Mild diffuse cerebral atrophy and mild to moderate chronic small vessel ischemic change r edemonstrated. Mild chronic paranasal sinus disease. No suspicious enhancement noted. No significant change from prior MRI.
== END | disposition home or self-care (01) ==
LOC: RADMRIMAIN 14:27
PROVIDERS: ATTEND Family Medicine
DX: G31.1 Senile degeneration of brain, not elsewhere classified (principal); I67.82 Cerebral ischemia
CPT/HCPCS: 82565; 70553; 36415; A9585

== ENCOUNTER 2019-01-09 05:51 | Observation (INO) | payer MEDICARE, BC ==
[2019-01-09] MEDS ORDERED: ASPIRIN 81 MG PO STA (06:00)
--- NOTE | 2019-01-09 06:15 | ED ---
Chest Pain HPI - General Chief Complaint: Chest Pain Stated Complaint: Chest Pain Time Seen by Provider: 01/09/19 06:00 Source: patient, RN notes reviewed Mode of arrival: wheelchair Limitations: no limitations - History of Present Illness Initial Comments: 83-year-old male presents emergency Department with chief complaint of chest discomfort. Patient states it started approximate 45 minutes to an hour ago. He states he has left-sided chest pressure/pain there is some pain up in his left shoulder region. Patient does have a history of coronary artery disease in which she's had 5 stents last stent was placed 4 years ago. Patient's business performance specialist is Dr. Weems. Patient does state medications for hypertension and hyperlipidemia. Patient states she's had pain like this in the past and was told it was just gas but states this feels slightly different does not believe that this is related to gas. He does admit to increased belching but denies any abdominal discomfort, nausea vomiting no diaphoresis no current shortness of breath. Denies any headache or dizziness. Patient states nothing makes the pain feel better or worse at this time. Patient states he did take 2 aspirin prior arrival. - Related Data Home Medications Medication Instructions Recorded Confirmed Aspirin 81 mg PO DAILY 10/16/14 04/27/18 Clopidogrel [Plavix] 75 mg PO DAILY 01/15/17 05/01/18 Hydrochlorothiazide [Hydrodiuril] 12.5 mg PO DAILY PRN 01/15/17 04/27/18 Docusate [Colace] 100 mg PO QID PRN 04/09/18 04/27/18 Pantoprazole [Protonix] 40 mg PO DAILY 04/09/18 04/27/18 amLODIPine BESYLATE [Norvasc] 3.75 mg PO HS 04/09/18 04/27/18 Magnesium Oxide 400 mg PO DAILY 04/27/18 04/27/18 Metamucil(Dose Unknown) 1 tsp PO DAILY 04/27/18 04/27/18 Sucralfate [Carafate] 1 gm PO BID 04/27/18 04/27/18 Allergies Allergy/AdvReac Type Severity Reaction Status Date / Time amoxicillin trihydrate Allergy Itching/PASSED Verified 01/09/19 05:58 [From Augmentin] OUT diazepam [From Valium] Allergy Unknown Verified 01/09/19 05:58 guaifenesin [From Entex LA] Allergy Unknown Verified 01/09/19 05:58 hydromorphone HCl Allergy Nausea & Verified 01/09/19 05:58 [From Dilaudid] Vomiting metoclopramide [From Reglan] Allergy Unknown Verified 01/09/19 05:58 orphenadrine [From Norflex] Allergy Unknown Verified 01/09/19 05:58 phenylephrine [From Entex LA] Allergy Unknown Verified 01/09/19 05:58 phenylpropanolamine Allergy Unknown Verified 01/09/19 05:58 [From Entex LA] potassium clavulanate Allergy Itching/PASSED Verified 01/09/19 05:58 [From Augmentin] OUT potassium iodide Allergy Unknown Verified 01/09/19 05:58 tolmetin [From Tolectin] Allergy itching/passed Verified 01/09/19 05:58 out albuterol [From Ventolin HFA] AdvReac Dizzy Verified 01/09/19 05:58 atorvastatin calcium AdvReac EYE "HAD Verified 01/09/19 05:58 [From Lipitor] BLOOD IN IT" cephalexin monohydrate AdvReac Nausea & Verified 01/09/19 05:58 [From Keflex] Vomiting codeine AdvReac SEVERE Verified 01/09/19 05:58 HEADACHE esomeprazole magnesium AdvReac SEVERE Verified 01/09/19 05:58 [From Nexium] HEADACHE propoxyphene AdvReac "TONGUE Verified 01/09/19 05:58 [From Darvocet-N] PEELED" Sulfa (Sulfonamide AdvReac Nausea & Verified 01/09/19 05:58 Antibiotics) Vomiting ANTIHISTAMINES AdvReac UNABLE TO Uncoded 01/09/19 05:58 URINATE Review of Systems ROS Statement: Those systems with pertinent positive or pertinent negative responses have been documented in the HPI. ROS Other: All systems not noted in ROS Statement are negative. EKG Findings - EKG Comments: EKG Findings:: EKG performed at 6:04 sinus rhythm with rate of 61 TN 188 QRS 92 QT/QTC 464/467 Past Medical History Past Medical History: Coronary Artery Disease (CAD), Cancer, GERD/Reflux, Hyperlipidemia, Hypertension, Osteoarthritis (OA) Additional Past Medical History / Comment(s): 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 "LOOKS LIKE A STEAMED UP WINDOW" ALL THE TIME- POST OP LENS REPLACEMENT, hiatal hernia, hx ulcer years ago, constipation, gout, skin cancer, Last Myocardial Infarction Date:: 06/2016 History of Any Multi-Drug Resistant Organisms: None Reported Past Surgical History: Heart Catheterization, Heart Catheterization With Stent, Orthopedic Surgery, Prostate Surgery Additional Past Surgical History / Comment(s): hemmorroidectomy, rotater cuff left shoulder, agustin cataract with lens replacement, cardiac stents x5, sinus surgery, right shoulder, Past Anesthesia/Blood Transfusion Reactions: Previous Problems w/ Anesthesia Additional Past Anesthesia/Blood Transfusion Reaction / Comment(s): had hard time waking up post op x1 Date of Last Stent Placement:: 10/17/2014 Past Psychological History: No Psychological Hx Reported Smoking Status: Never smoker Past Alcohol Use History: None Reported Past Drug Use History: None Reported - Past Family History Son(s) Family Medical History: Cancer Mother Family Medical History: Deep Vein Thrombosis (DVT) Father Additional Family Medical History / Comment(s): emphysema General Exam Limitations: no limitations General appearance: alert, in no apparent distress Head exam: Present: atraumatic, normocephalic, normal inspection Eye exam: Present: normal appearance, PERRL, EOMI. Absent: scleral icterus, conjunctival injection, periorbital swelling Neck exam: Present: normal inspection, full ROM. Absent: tenderness, meningismus, lymphadenopathy Respiratory exam: Present: normal lung sounds bilaterally. Absent: respiratory distress, wheezes, rales, rhonchi, stridor, chest wall tenderness Cardiovascular Exam: Present: regular rate, normal rhythm, normal heart sounds. Absent: systolic murmur, diastolic murmur, rubs, gallop, clicks GI/Abdominal exam: Present: soft, normal bowel sounds. Absent: distended, tenderness, guarding, rebound, rigid Neurological exam: Present: alert, oriented X3 Skin exam: Present: warm, dry, intact, normal color. Absent: rash Course Vital Signs 01/09/19 05:55 Temperature 97.6 F Pulse Rate 70 Respiratory 18 Rate Blood Pressure 142/73 O2 Sat by Pulse 98 Oximetry Critical Care Time Critical Care Time: Yes Total Critical Care Time: 35 Critical Care Time: Total 35 minutes of critical care time were used initially evaluated the patient , reviewed past medical history, review vitals. Labs including CBC, CMP, troponin, BMP, lipase EKG and chest x-ray ordered patient took aspirin prior arrival. Patient was reviewed which shows no elevation of fall at this time EKG showed sinus arrhythmia. Patient will be admitted on heparin for cardiology evaluation case discussed with admitting physician patient will have repeat troponin. Disposition Clinical Impression: Chest pain Disposition: ADMITTED IP TO THIS HOSP Condition: Fair Referrals: Rosalio Moore DO [Primary Care Provider] - 1-2 days
[2019-01-09 06:38] LABS: Basophils # (A) 0.1 k/uL (0-0.2); Basophils % (A) 1 %; Eosinophils # (A) 0.4 k/uL (0-0.7); Eosinophils % (A) 5 %; HCT 44.2 % (39.0-53.0); HGB 14.5 gm/dL (13.0-17.5); Lymphocytes # (A) 2.3 k/uL (1.0-4.8); Lymphocytes % (A) 28 %; MCH 31.7 pg (25.0-35.0); MCHC 32.8 g/dL (31.0-37.0); MCV 96.7 fL (80.0-100.0); Monocytes # (A) 0.6 k/uL (0-1.0); Monocytes % (A) 8 %; Neutrophils # (A) 4.5 k/uL (1.3-7.7); Neutrophils % (A) 57 %; Platelet Count 210 k/uL (150-450); RBC 4.58 m/uL (4.30-5.90); RDW 13.6 % (11.5-15.5)
[2019-01-09 06:47] LABS: Albumin 4.1 g/dL (3.5-5.0); Calcium 9.8 mg/dL (8.4-10.2); Potassium 3.7 mmol/L (3.5-5.1); Total Bilirubin 0.9 mg/dL (0.2-1.3); Total Protein 6.9 g/dL (6.3-8.2)
[2019-01-09 06:49] LABS: Partial Thromboplastin Time 22.5 sec (22.0-30.0); Prothrombin Time 10.6 sec (9.0-12.0)
--- NOTE | 2019-01-09 07:08 | XR ---
EXAM: XR Chest, 2 Views. CLINICAL HISTORY: Reason: Chest Pain TECHNIQUE: Frontal and lateral views of the chest. COMPARISON: 01/03/18 FINDINGS: Lungs: Normal lung volumes. No evidence of airspace consolidation or pulmonary edema. Pleural spaces: Unremarkable. No pneumothorax. No significant pleural effusion. Heart: Unremarkable. No cardiomegaly. Mediastinum: Unremarkable. Bones: Unremarkable. No acute fracture. IMPRESSION: No evidence of acute cardiopulmonary abnormality.
[2019-01-09] MEDS ORDERED: NITROGLYCERIN SL TABS 0.4 MG TAB SUBLINGUAL PRN (07:23)
[2019-01-09] MEDS ORDERED: HEPARIN SODIUM,PORCINE 5,000 UNIT/ML 1 ML VIAL IV ONE (07:23)
[2019-01-09] MEDS ORDERED: SIMETHICONE 80 MG CHEWABLE PO STA (07:44)
[2019-01-09] MEDS: HEPARIN SOD,PORK IN 0.45% NACL 25,000 UNIT in 0.45% NACL 1 250ML.BAG IV SCH (07:45)
[2019-01-09] MEDS ORDERED: amLODIPine 5 MG TAB PO SCH (10:00)
[2019-01-09] MEDS ORDERED: amLODIPine 5 MG TAB PO ONE (10:01)
--- NOTE | 2019-01-09 10:31 | CONS ---
CONSULTATION CHIEF COMPLAINT: Chest pain. Mr. Guillen is an 83-year-old gentleman with history of coronary artery disease status post multiple prior angioplasties, hypertension, and dyslipidemia who presents to hospital complaining of chest pain. It is a sharp pericardial pain that he feels in between his ribs and he can touch it and it gets worse. He has had similar pain in the past which started early this morning will go away. He is also having recurrent episodes of burping related to his gastroesophageal reflux or hiatal hernia. Patient has known CAD, underwent cardiac catheterization in 2017 and at that time was advised medical therapy. He had multivessel coronary artery disease with prior stenting of LAD and major diagonal branch. At that time, he had a lesion in the LAD in the very distal vein, lesion in the LAD in the very distal vessel and was advised medical therapy. On this admission, the EKG shows sinus rhythm with PACs at 1 set of troponin that is negative and his chest discomfort is very atypical and probably musculoskeletal. PAST MEDICAL HISTORY: Significant for coronary artery disease, hypertension, dyslipidemia. The patient has multiple drug allergies, they are charted and I reviewed them. MEDICATIONS: He is currently on Norvasc 5 daily, Carafate 1 b.i.d., Zocor 10 daily, Protonix, hydrochlorothiazide and aspirin. FAMILY HISTORY: Negative for premature coronary artery disease. SOCIAL HISTORY: Negative for current smoking, EtOH abuse, or drug abuse. REVIEW OF SYSTEMS: HEENT: Unremarkable. CARDIAC: As described above. RESPIRATORY: Negative. GI; Negative. GENITOURINARY: Negative. ALLERGY/IMMUNOLOGY: Negative. Allergy none skin negative musculoskeletal negative endocrine: Negative constitutional negative oncological negative rest of the system review is not relevant. EXAM: Patient is comfortable at rest. Afebrile. Heart rate is 50 beats per minute. Blood pressure is 180/85, respiratory rate is 18. CHEST: Exam reveals good air entry bilaterally. HEART: Exam reveals first and second heart sounds and S4 is heard. ABDOMEN: Soft. EXTREMITIES; Exam of extremities did not reveal any edema. Peripheral pulses are felt. EKG shows sinus rhythm with PACs. Troponin is negative. Hemoglobin is normal at 14.5. Potassium is 3.7, creatinine is 0.96. ASSESSMENT: 1. Chest pain, atypical, probably musculoskeletal. 2. Known coronary artery disease on medical therapy. 3. Uncontrolled hypertension. PLAN: I will obtain 2 more sets of troponins, if they are normal, he can be discharged home and continue workup in the outpatient setting. I am going to increase the dose of amlodipine to 10 mg daily for more optimal blood pressure control. If this does not do it, we might add an WILBERT inhibitor, if he is not allergic to it. MMODL / IJN: [id number] /
[2019-01-09] MEDS ORDERED: PANTOPRAZOLE 40 MG TABLET PO STA (11:49)
[2019-01-09] MEDS: HYDROCHLOROTHIAZIDE 25 MG TAB PO SCH (12:00)
--- NOTE | 2019-01-09 12:20 | P.HPIM ---
History of Present Illness 83-year-old pleasant gentleman with known history of coronary disease in with previous angioplasties came in with complaints of chest pain on the left side of the chest he believes in between the ribs and sharp in nature moderate pain for- 5/10 in severity nonradiating constant lasted for about 45 minutes burping improves her symptoms not related to food nonpleuritic in nature no associated diaphoresis no lightheadedness. Patient chest pain is pretty atypical for Coronary artery disease casting his arm could not disease history cardiology is recommending monitoring overnight with the 2 more sets of troponins. EKG did not show any significant ST-T wave changes onset of troponin is negative. Patient was started on Protonix patient does have neck pain issues from degenerative cervical spine disease along with right rotator cuff injury, for which she follows up with surgery as an outpatient. Patient believes his pain m ay be related to his hiatal hernia although there is no significant herniation of the stomach into the thorax was evident on the chest x-ray. Review of Systems REVIEW OF SYSTEMS: CONSTITUTIONAL: No fever, no malaise, no fatigue. HEENT: No recent visual problems or hearing problems. Denied any sore throat. CARDIOVASCULAR: No orthopnea, PND, no palpitations, no syncope. PULMONARY: No shortness of breath, no cough, no hemoptysis. GASTROINTESTINAL: No diarrhea, no nausea, no vomiting, no abdominal pain. NEUROLOGICAL: No headaches, no weakness, no numbness. HEMATOLOGICAL: Denies any bleeding or petechiae. GENITOURINARY: Denies any burning micturition, frequency, or urgency. MUSCULOSKELETAL/RHEUMATOLOGICAL: Denies any joint pain, swelling, or any muscle pain. ENDOCRINE: Denies any polyuria or polydipsia. The rest of the 14-point review of systems is negative. 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 Last Myocardial Infarction Date:: 2016 History of Any Multi-Drug Resistant Organisms: None Reported Past Surgical History: Heart Catheterization, Heart Catheterization With Stent, Orthopedic Surgery, Prostate Surgery Additional Past Surgical History / Comment(s): PCI with stents (total of 5), L rotator cuff repair, R shoulder injection, skin cancer removed from face, hemo rroidectomy, EGD, colonoscopy with rectal polypectomy, TURP, sinus surgery, bilateral cataract removals with lens implants. Past Anesthesia/Blood Transfusion Reactions: Previous Problems w/ Anesthesia Additional Past Anesthesia/Blood Transfusion Reaction / Comment(s): had hard time waking up post op x1 Date of Last Stent Placement:: 10/17/2014 Smoking Status: Never smoker - Past Family History Son(s) Family Medical History: Cancer Additional Family Medical History / Comment(s): Follicular lymphoma Mother Family Medical History: Deep Vein Thrombosis (DVT) Additional Family Medical History / Comment(s): DVTs in legs Father Family Medical History: COPD Additional Family Medical History / Comment(s): emphysema Medications and Allergies Home Medications Medication Instructions Recorded Confirmed Type Aspirin 81 mg PO DAILY 10/16/14 01/09/19 History Pantoprazole [Protonix] 40 mg PO DAILY 04/09/18 01/09/19 History amLODIPine BESYLATE [Norvasc] 5 mg PO DAILY 04/09/18 01/09/19 History Sucralfate [Carafate] 1 gm PO BID 04/27/18 01/09/19 History Doxycycline Hyclate 100 mg PO BID 01/09/19 01/09/19 History Hydrochlorothiazide 25 mg PO DAILY 01/09/19 01/09/19 History Simvastatin [Zocor] 10 mg PO HS 01/09/19 01/09/19 History Allergies Allergy/AdvReac Type Severity Reaction Status Date / Time amoxicillin trihydrate Allergy Itching/PASSED Verified 01/09/19 07:51 [From Augmentin] OUT diazepam [From Valium] Allergy Unknown Verified 01/09/19 07:51 guaifenesin [From Entex LA] Allergy Unknown Verified 01/09/19 07:51 hydromorphone HCl Allergy Nausea & Verified 01/09/19 07:51 [From Dilaudid] Vomiting metoclopramide [From Reglan] Allergy Unknown Verified 01/09/19 07:51 morphine Allergy Unknown Verified 01/09/19 07:51 orphenadrine [From Norflex] Allergy Unknown Verified 01/09/19 07:51 phenylephrine [From Entex LA] Allergy Unknown Verified 01/09/19 07:51 phenylpropanolamine Allergy Unknown Verified 01/09/19 07:51 [From Entex LA] potassium clavulanate Allergy Itching/PASSED Verified 01/09/19 07:51 [From Augmentin] OUT potassium iodide Allergy Unknown Verified 01/09/19 07:51 tolmetin [From Tolectin] Allergy itching/passed Verified 01/09/19 07:51 out albuterol [From Ventolin HFA] AdvReac Dizzy Verified 01/09/19 07:51 atorvastatin calcium AdvReac EYE "HAD Verified 01/09/19 07:51 [From Lipitor] BLOOD IN IT" cephalexin monohydrate AdvReac Nausea & Verified 01/09/19 07:51 [From Keflex] Vomiting codeine AdvReac SEVERE Verified 01/09/19 07:51 HEADACHE esomeprazole magnesium AdvReac SEVERE Verified 01/09/19 07:51 [From Nexium] HEADACHE propoxyphene AdvReac "TONGUE Verified 01/09/19 07:51 [From Darvocet-N] PEELED" Sulfa (Sulfonamide AdvReac Nausea & Verified 01/09/19 07:51 Antibiotics) Vomiting ANTIHISTAMINES AdvReac UNABLE TO Uncoded 01/09/19 05:58 URINATE Physical Exam Vitals: Vital Signs Temp Pulse Pulse Resp BP BP BP 01/09/19 12:10 97.6 F 61 17 145/87 01/09/19 12:07 01/09/19 08:55 97.6 F 66 17 182/85 01/09/19 08:07 165/94 01/09/19 07:52 60 16 01/09/19 05:55 97.6 F 70 18 142/73 Pulse Ox 01/09/19 12:10 93 L 01/09/19 12:07 96 01/09/19 08:55 96 01/09/19 08:07 01/09/19 07:52 98 01/09/19 05:55 98 Intake and Output 01/08/19 01/09/1901/09/19 22:59 06:59 14:59 Other: Voiding Method Toilet # Voids 1 Weight 705.336 kg 71.214 kg PHYSICAL EXAMINATION: GENERAL: The patient is alert and oriented x3, not in any acute distress. Well developed, well nourished. HEENT: Pupils are round and equally reacting to light. EOMI. No scleral icterus. No conjunctival pallor. Normocephalic, atraumatic. No pharyngeal erythema. No thyromegaly. CARDIOVASCULAR: S1 and S2 present. No murmurs, rubs, or gallops. PULMONARY: Chest is clear to auscultation, no wheezing or crackles. ABDOMEN: Soft, nontender, nondistended, normoactive bowel sounds. No palpable organomegaly. MUSCULOSKELETAL: No joint swelling or deformity. EXTREMITIES: No cyanosis, clubbing, or pedal edema. NEUROLOGICAL: Gross neurological examination did not reveal any focal deficits. SKIN: No rashes. Results CBC & Chem 7: 01/09/19 06:24 01/09/19 06:24 Labs: Abnormal Lab Results - Last 24 Hours (Table) 01/09/19 Range/Units 06:24 BUN 22 H (9-20) mg/dL Glucose 102 H (74-99) mg/dL Alkaline Phosphatase 37 L (38-126) U/L Thrombosis Risk Factor Assmnt - Choose All That Apply Any of the Below Risk Factors Present?: Yes Other Risk Factors: Yes Each Risk Factor Represents 2 Points: Malignancy Each Risk Factor Represents 3 Points: Age 75 years or older, Family history of DVT/PE Other congenital or acquired thrombophilia - If yes, enter type in comment: No Thrombosis Risk Factor Assessment Total Risk Factor Score: 8 Thrombosis Risk Factor Assessment Level: High Risk Assessment and Plan Plan: -Chest pain: Atypical will rule out a concurrent syndromes, unstable angina most probably musculoskeletal in nature although can be related to gastroesophageal reflux disease we'll continue with panic patient will be discharged on Zantac. Continue with Carafate. We will rule out acute coronary syndromes. -Hypertension -Gastroesophageal reflux disease and hiatal hernia -Hyperlipidemia. For above-mentioned chronic medical problems patient will be resumed on appropriate home medications, DVT prophylaxis ambulation.
[2019-01-09] MEDS ORDERED: SUCRALFATE 1 GM TAB PO STA (15:53)
[2019-01-09] MEDS: SUCRALFATE 1 GM TAB PO SCH (19:44)
[2019-01-09] MEDS ORDERED: ATORVASTATIN 10 MG TAB PO SCH (21:00)
[2019-01-10] MEDS: HEPARIN SOD,PORK IN 0.45% NACL 25,000 UNIT in 0.45% NACL 1 250ML.BAG IV SCH (04:30)
[2019-01-10 05:17] VITALS: RESP 18; TEMP 97.8
[2019-01-10 06:26] LABS: Mean Platelet Volume 7.1; Platelet Count 199 k/uL (150-450)
[2019-01-10 06:41] LABS: Cholesterol 140 mg/dL (<200); HDL Cholesterol 39 mg/dL (40-60); LDL Cholesterol,Calculated 80 mg/dL (0-99); Triglycerides 106 mg/dL (<150)
[2019-01-10] MEDS ORDERED: PANTOPRAZOLE 40 MG TABLET PO SCH (07:30)
[2019-01-10 07:32] VITALS: BP 150/87; PULSE 58
[2019-01-10] MEDS ORDERED: ASPIRIN 325 MG TAB PO SCH (09:00)
[2019-01-10] MEDS ORDERED: HYDROCHLOROTHIAZIDE 25 MG TAB PO SCH (09:00)
[2019-01-10] MEDS ORDERED: amLODIPine 10 MG TAB PO SCH (09:00)
[2019-01-10] MEDS ORDERED: ASPIRIN 81 MG PO SCH (09:00)
[2019-01-10] MEDS: HYDROCHLOROTHIAZIDE 25 MG TAB PO SCH (10:19)
[2019-01-10] MEDS: SUCRALFATE 1 GM TAB PO SCH (10:19)
--- NOTE | 2019-01-10 12:36 | P.DS ---
Providers Date of admission: 01/09/19 08:26 Attending physician: Michelle Van Consults: 01/09/19 07:23 Consult Physician Urgent Consulting Provider: Mihai Weems Consult Reason/Comments: chest pain Do you want consulting provider notified?: Yes Primary care physician: Rosalio Moore [facility] Course: Patient came in with the chest pain predominantly in the left upper quadrant of the abdomen which appears to be musculoskeletal related to back pain. We'll rule out acute coronary syndromes and the patient was cleared by cardiology and patient will be discharged today in stable medical condition to home. No changes in medications are being made. PHYSICAL EXAMINATION: GENERAL: The patient is alert and oriented x3, not in any acute distress. Well developed, well nourished. HEENT: Pupils are round and equally reacting to light. EOMI. No scleral icterus. No conjunctival pallor. Normocephalic, atraumatic. No pharyngeal erythema. No thyromegaly. CARDIOVASCULAR: S1 and S2 present. No murmurs, rubs, or gallops. PULMONARY: Chest is clear to auscultation, no wheezing or crackles. ABDOMEN: Soft, nontender, nondistended, normoactive bowel sounds. No palpable organomegaly. MUSCULOSKELETAL: No joint swelling or deformity. EXTREMITIES: No cyanosis, clubbing, or pedal edema. NEUROLOGICAL: Gross neurological examination did not reveal any focal deficits. SKIN: No rashes. For other medical problems hospitalization course please refer to my dictation of which we have from yesterday Patient Condition at Discharge: Fair Plan - Discharge Summary Discharge Rx Participant: No New Discharge Prescriptions: Continue Aspirin 81 mg PO DAILY amLODIPine BESYLATE [Norvasc] 5 mg PO DAILY Pantoprazole [Protonix] 40 mg PO DAILY Sucralfate [Carafate] 1 gm PO BID Simvastatin [Zocor] 10 mg PO HS Doxycycline Hyclate 100 mg PO BID Hydrochlorothiazide 25 mg PO DAILY Discharge Medication List Aspirin 81 mg PO DAILY 10/16/14 [History] Pantoprazole [Protonix] 40 mg PO DAILY 04/09/18 [History] amLODIPine BESYLATE [Norvasc] 5 mg PO DAILY 04/09/18 [History] Sucralfate [Carafate] 1 gm PO BID 04/27/18 [History] Doxycycline Hyclate 100 mg PO BID 01/09/19 [History] Hydrochlorothiazide 25 mg PO DAILY 01/09/19 [History] Simvastatin [Zocor] 10 mg PO HS 01/09/19 [History] Follow up Appointment(s)/Referral(s): Mihai Weems MD [STAFF PHYSICIAN] - 01/24/19 9:30 am (Follow up with Dr. Weems on Jan 24 at 9:30am as scheduled Stress Test scheduled for at 0700am. Office will send a prep sheet for stress test ) Rosalio Moore DO [Primary Care Provider] - 3 Days Patient Instructions/Handouts: Chest Pain (GEN) Discharge Disposition: HOME SELF-CARE
--- NOTE | 2019-01-10 15:32 | PN ---
PROGRESS NOTE Larry is an 83-year-old gentleman with history of coronary artery disease, status post multiple prior angioplasties, hypertension, dyslipidemia, who presented to hospital with chest pain, ruled out for myocardial infarction. His chest discomfort is atypical and sounds musculoskeletal. This morning he is doing well and is free of symptoms. Three sets of cardiac enzymes are negative. EKG does not reveal ischemic changes. Cardiac enzymes have been negative. The patient is doing well. PHYSICAL EXAM: Comfortable at rest. Vital signs are stable. Chest exam reveals good air entry bilaterally. Heart exam reveals first and second heart sounds. No gallop. No murmur. Abdomen is soft, nontender. Exam of extremities did not reveal any edema. Peripheral pulses are felt. ASSESSMENT: Atypical chest pain due to a combination of musculoskeletal discomfort and hiatal hernia. No further cardiac workup at this time. He is stable to be discharged home. Stop the IV heparin. He will pursue outpatient workup through Dr. Weems. He will need a stress test as outpatient. MMODL / IJN: [id number] /
== END 2019-01-10 12:43 | disposition home or self-care (01) ==
LOC: EC 05:51 → 1SOBS 08:26
PROVIDERS: ADMIT Hospitalist; ATTEND Hospitalist
DX: R07.2 Precordial pain (principal); R10.12 Left upper quadrant pain; M25.512 Pain in left shoulder; G89.29 Other chronic pain; M54.5 Low back pain; M25.511 Pain in right shoulder; I25.10 Atherosclerotic heart disease of native coronary artery without angina pectoris; R14.2 Eructation; K21.9 Gastro-esophageal reflux disease without esophagitis; K44.9 Diaphragmatic hernia without obstruction or gangrene; E78.5 Hyperlipidemia, unspecified; I10 Essential (primary) hypertension; I25.2 Old myocardial infarction; M50.30 Other cervical disc degeneration, unspecified cervical region; M19.90 Unspecified osteoarthritis, unspecified site; M10.9 Gout, unspecified; K59.00 Constipation, unspecified; H54.7 Unspecified visual loss; N40.0 Benign prostatic hyperplasia without lower urinary tract symptoms; Z95.5 Presence of coronary angioplasty implant and graft; Z85.828 Personal history of other malignant neoplasm of skin; Z87.11 Personal history of peptic ulcer disease; Z87.01 Personal history of pneumonia (recurrent); Z87.09 Personal history of other diseases of the respiratory system; Z96.1 Presence of intraocular lens; Z79.899 Other long term (current) drug therapy; Z79.82 Long term (current) use of aspirin; Z79.02 Long term (current) use of antithrombotics/antiplatelets; Z88.1 Allergy status to other antibiotic agents; Z88.5 Allergy status to narcotic agent; Z88.0 Allergy status to penicillin; Z88.2 Allergy status to sulfonamides; Z88.8 Allergy status to other drugs, medicaments and biological substances; Z83.2 Family history of diseases of the blood and blood-forming organs and certain disorders involving the immune mechanism; Z82.5 Family history of asthma and other chronic lower respiratory diseases; Z80.9 Family history of malignant neoplasm, unspecified; Z80.7 Family history of other malignant neoplasms of lymphoid, hematopoietic and related tissues
CPT/HCPCS: 96366 ×2; 96376; 96365; 99291; 36415; 94760; 93005; 83880; 80061; 80053; 83690; 83735; 84484; 85025; 85049; 85610; 85730 ×2; 71046; G0378 ×2; J1644 ×3

== ENCOUNTER 2019-06-07 09:47 | Day surgery (SDC) | payer MEDICARE, BC ==
[2019-06-06 09:59] VITALS: BMI 25.3
[~2019-06-07 09:47] MED LIST changes: +LACTATED RINGERS 1,000 ML IV SCH; +LIDOCAINE 1% 20 ML VIAL (10MG/ML) FOR IV START INTRADERMA PRN; -SODIUM CHLORIDE 0.9% 500 ML 500 ML IV SCH
[2019-06-07 10:52] VITALS: RESP 16; TEMP 97.5
[2019-06-07] MEDS ORDERED: PROPOFOL 10 MG/ML 20 ML VIAL IV ONE (11:09)
[2019-06-07] MEDS ORDERED: LIDOCAINE 1% INJ 10MG/ML (20 ML MDV) ONE (11:09)
--- NOTE | 2019-06-07 11:20 | P.PCN ---
Date of Procedure: 06/07/19 Procedure(s) Performed: BRIEF HISTORY: Patient is a 83-year-old, pleasant, white male, scheduled for an upper endoscopy as a part of evaluation of intermittent episodes of GERD with severe passive regurgitation despite being on Prevacid 30 mg daily. He has the symptoms typically at night was advised to make. He scheduled for an upper endoscopy to rule out complicated reflux disease. PROCEDURE PERFORMED: Esophagogastroduodenoscopy with biopsy. PREOPERATIVE DIAGNOSIS: GERD/passive regurgitation. IV sedation per anesthesia. PROCEDURE: After informed consent was obtained, the patient was brought into the endoscopy unit. IV sedation was administered by Anesthesia under continuous monitoring. Initially the Olympus GIF-140 video endoscope was inserted into the mouth. Esophagus intubated without any difficulty. It was gradually advanced into the stomach and duodenum and carefully examined. The bulb and the second part of the duodenum appeared normal. The scope at this time was withdrawn to the stomach, adequately insufflated with air, and upon careful examination, mucosa of the antrum, body, cardia and the fundus appeared normal. The scope was then withdrawn into the esophagus. moderate size hiatal hernia noted.The GE junction was located at 41 cm from the incisors. The esophagus appeared normal. There were no erosions or ulcerations seen, biopsies were done from the distal esophagus and the patient tolerated the procedure well. IMPRESSION: 1. Moderate size hiatal hernia. 2. No evidence of esophagitis or peptic ulcer disease. RECOMMENDATIONS: The findings of this examination were discussed with the patient as well as his family. He was advised to follow with the biopsy r esults. He will continue with Prevacid 30 mg daily half hour before dinnertime and follow antireflux measures..
[2019-06-07 11:43] VITALS: BP 120/80; PULSE 52
== END 2019-06-07 12:10 | disposition home or self-care (01) ==
LOC: ORWHC2ENDO 09:47
PROVIDERS: ATTEND Internal Medicine Gastroenterology
DX: K21.9 Gastro-esophageal reflux disease without esophagitis (principal); K44.9 Diaphragmatic hernia without obstruction or gangrene; I25.2 Old myocardial infarction; I25.10 Atherosclerotic heart disease of native coronary artery without angina pectoris; I10 Essential (primary) hypertension; E78.5 Hyperlipidemia, unspecified; Z79.899 Other long term (current) drug therapy; Z79.82 Long term (current) use of aspirin; Z88.0 Allergy status to penicillin; Z88.1 Allergy status to other antibiotic agents; Z88.2 Allergy status to sulfonamides; Z88.5 Allergy status to narcotic agent; Z88.8 Allergy status to other drugs, medicaments and biological substances; Z95.5 Presence of coronary angioplasty implant and graft; Z91.89 Other specified personal risk factors, not elsewhere classified
CPT/HCPCS: 88305; 43239; J2001; J2704

== ENCOUNTER → 2020-05-18 | Outpatient (CLI) | payer MEDICARE, BC ==
[2020-05-18 10:37] VITALS: BP 120/77; PULSE 80; RESP 18; TEMP 97.7
--- NOTE | 2020-05-18 11:27 | P.CONS ---
History of Present Illness - Reason for Consult Consult date: 05/18/20 - Chief Complaint Left arm pain - History of Present Illness This is an 84-year-old gentleman with history of left shoulder and arm pain which started spontaneously without any precipitating events in November 2019. The patient denies any neck pain however his pain starts from the back of his shoulder down to his left hand starting on the medial side of her hand and then extending to all the fingers. He describes his shoulder pain as sharp penetrating like someone is inserting a screwdriver in his shoulder as he states and he describes his left arm pain as burning in quality which she wakes him up at night he has difficulty raising up his left arm above his shoulder level because of this pain and also some muscle weakness as he states. Which gave him short period of pain relief for about 2 days. He then had an MRI of the cervical spine which showed facet arthropathy and disc osteophyte complex resulting in central canal stenosis and moderate severe foraminal stenosis at the C6 7 level on the left side with similar changes at the C7-T1 level with moderate right foraminal stenosis and moderate to severe left foraminal stenosis it also showed similar changes at the C3-C4 level with moderate central canal stenosis with slight cord flattening and moderate to severe left foraminal stenosis. The patient failed to respond to chiropractor therapy and as a matter of fact he had to stop using it because of the diplopia after one of these sessions. The patient was referred to us by Dr. Martínez, who injected his left shoulder with the steroids recently and as mentioned above that resulted in significant relief of pain which however lasted only for 2 days. Past Medical History Past Medical History: Coronary Artery Disease (CAD), Cancer, Eye Disorder, GERD/Reflux, Hyperlipidemia, Hypertension, Osteoarthritis (OA), Prostate Disorder, Syncope Additional Past Medical History / Comment(s): basal & squamous skin cancer, hiatal hernia, duodenal ulcer, constipation, diverticular disease, chronic low back pain, DJD, chronic R shoulder pain d/t torn rotator cuff, gout, BPH with surgery, vasovagal syncope, bronchitis, sinus problems, r eye blurry vision since cataract surg., increasing GERD lately-"can't eat after 6pm" PT DENIES EVER HAVING A HEART ATTACK Last Myocardial Infarction Date:: 2016 History of Any Multi-Drug Resistant Organisms: None Reported Past Surgical History: Heart Catheterization, Heart Catheterization With Stent, Orthopedic Surgery, Prostate Surgery Additional Past Surgical History / Comment(s): PCI with stents (total of 5), L rotator cuff repair, R shoulder injection, skin cancer removed from face, hemorroidectomy, EGD, colonoscopy with rectal polypectomy, TURP, sinus surgery, bilateral cataract removals with lens implants. Past Anesthesia/Blood Transfusion Reactions: Previous Problems w/ Anesthesia Additional Past Anesthesia/Blood Transfusion Reaction / Comm: had hard time waking up post op x1 Date of Last Stent Placement:: 10/28/2005,10/17/2014, Past Psychological History: No Psychological Hx Reported Additional Psychological History / Comment(s): Pt resides with his spouse. He is independent. Smoking Status: Never smoker Past Alcohol Use History: None Reported Past Drug Use History: None Reported - Past Family History Son(s) Family Medical History: Cancer Additional Family Medical History / Comment(s): Follicular lymphoma Mother Family Medical History: Deep Vein Thrombosis (DVT) Additional Family Medical History / Comment(s): DVTs in legs Father Family Medical History: COPD Additional Family Medical History / Comment(s): emphysema Medications and Allergies Home Medications Medication Instructions Recorded Confirmed Type Aspirin 81 mg PO DAILY 10/16/14 05/13/20 History amLODIPine BESYLATE [Norvasc] 2.5 mg PO DAILY 04/09/18 05/13/20 History Sucralfate [Carafate] 1 gm PO BID 04/27/18 05/13/20 History Simvastatin [Zocor] 10 mg PO SUTUTHSA 01/09/19 05/13/20 History hydroCHLOROthiazide 25 mg PO DAILY 01/09/19 05/13/20 History Biotin 5 mg PO DAILY 06/06/19 05/13/20 History Cholecalciferol [Vitamin D3 (25 1,000 unit PO DAILY 06/06/19 05/13/20 History Mcg = 1000 Iu)] Lansoprazole [Prevacid] 15 mg PO BID 05/13/20 05/13/20 History Allergies Allergy/AdvReac Type Severity Reaction Status Date / Time amoxicillin trihydrate Allergy Itching/PASSED Verified 05/13/20 10:03 [From Augmentin] OUT diazepam [From Valium] Allergy Unknown Verified 05/13/20 10:03 guaifenesin [From Entex LA] Allergy Unknown Verified 05/13/20 10:03 hydromorphone HCl Allergy Nausea & Verified 05/13/20 10:03 [From Dilaudid] Vomiting metoclopramide [From Reglan] Allergy Nausea & Verified 05/13/20 10:03 Vomiting morphine Allergy Nausea & Verified 05/13/20 10:03 Vomiting orphenadrine [From Norflex] Allergy can't Verified 05/13/20 10:03 urinate phenylephrine [From Entex LA] Allergy Unknown Verified 05/13/20 10:03 phenylpropanolamine Allergy Unknown Verified 05/13/20 10:03 [From Entex LA] potassium clavulanate Allergy Itching/PASSED Verified 05/13/20 10:03 [From Augmentin] OUT potassium iodide Allergy Unknown Verified 05/13/20 10:03 tolmetin [From Tolectin] Allergy itching/passed Verified 05/13/20 10:03 out albuterol [From Ventolin HFA] AdvReac Dizzy Verified 05/13/20 10:03 atorvastatin calcium AdvReac EYE "HAD Verified 05/13/20 10:03 [From Lipitor] BLOOD IN IT" cephalexin monohydrate AdvReac Nausea & Verified 05/13/20 10:03 [From Keflex] Vomiting codeine AdvReac SEVERE Verified 05/13/20 10:03 HEADACHE esomeprazole magnesium AdvReac SEVERE Verified 05/13/20 10:03 [From Nexium] HEADACHE propoxyphene AdvReac "TONGUE Verified 05/13/20 10:03 [From Darvocet-N] PEELED" Sulfa (Sulfonamide AdvReac Nausea & Verified 05/13/20 10:03 Antibiotics) Vomiting ANTIHISTAMINES AdvReac UNABLE TO Uncoded 05/13/20 10:03 URINATE Physical Exam Vitals: Vital Signs Temp Pulse Resp BP Pulse Ox 05/18/20 10:32 97.7 F 80 18 120/77 98 - Constitutional General appearance: thin - EENT Eyes: PERRLA - Neurologic Neuro exam of the upper extremities showed hyperactive deep tendon reflexes but symmetrically and bilaterally, decreased left deltoid abduction to 3 out of 5 and normal muscle strength for the rest of the muscle groups. No tenderness in the cervical paravertebral musculature Positive tenderness in the left shoulder joint posteriorly Decreased range of motion of the left shoulder joint to 90 abduction Lumbar range of motion of the cervical spine Neurologic: CNII-XII intact - Psychiatric Psychiatric: A&O x's 3, appropriate affect, intact judgment & insight Assessment and Plan Plan: This is an 84-year-old gentleman with the following diagnoses: Left shoulder arthropathy status post surgery and steroid injection Left cervical radiculopathy due to neuroforaminal stenosis Cervical spondylosis without myelopathy Probable left brachial plexopathy Treatment with aspirin 81 mg daily Plan: The patient may benefit from getting cervical epidural steroid injection at the C7-T1 level in the left paramedian approach under fluoroscopic guidance however I will have to review his last EMG which was done a few months ago in the upper extremities. The patient will be asked to hold his aspirin for 3 days before the next injection if we decide to do it. The patient also may benefit from getting physical therapy in the future. I thank you for the referral
== END | disposition home or self-care (01) ==
LOC: PNWHC3 10:07
PROVIDERS: ATTEND Anesthesiology
DX: M12.812 Other specific arthropathies, not elsewhere classified, left shoulder (principal); M48.02 Spinal stenosis, cervical region; M47.22 Other spondylosis with radiculopathy, cervical region; K21.9 Gastro-esophageal reflux disease without esophagitis; E78.5 Hyperlipidemia, unspecified; Z79.899 Other long term (current) drug therapy; Z88.8 Allergy status to other drugs, medicaments and biological substances; Z88.1 Allergy status to other antibiotic agents; Z88.2 Allergy status to sulfonamides; Z79.82 Long term (current) use of aspirin; Z79.84 Long term (current) use of oral hypoglycemic drugs; Z88.5 Allergy status to narcotic agent
CPT/HCPCS: 99211

== ENCOUNTER 2020-06-02 13:06 | Day surgery (SDC) | payer MEDICARE, BC ==
[2020-05-28 15:54] VITALS: BMI 24.7
[2020-06-02 13:25] VITALS: TEMP 97.2
[2020-06-02] MEDS ORDERED: LACTATED RINGERS 1,000 ML IV ONE (13:39)
[2020-06-02] MEDS ORDERED: LIDOCAINE 1% (10MG/ML) FOR IV START INTRADERMA ONE (13:39)
[2020-06-02] MEDS ORDERED: MIDAZOLAM 2 MG/2 ML VIAL ONE (14:01)
[2020-06-02] MEDS ORDERED: IOPAMIDOL M200 10 ML VIAL ONE (14:01)
[2020-06-02] MEDS ORDERED: DEXAMETHASONE SOD PHOSPHATE 10 MG/ML 1 ML VIAL ONE (14:01)
[2020-06-02] MEDS ORDERED: fentaNYL (PF) 50 MCG/ML 2 ML AMP ONE (14:01)
--- NOTE | 2020-06-02 14:20 | P.PCN ---
Date of Procedure: 06/02/20 Description of Procedure: Diagnosis: Cervical radiculopathy Cervical degenerative disc disease POSTOPERATIVE DIAGNOSIS: Diagnoses: Cervical radiculopathy Cervical degenerative disc disease PROCEDURE Cervical Epidural steroid injection under fluoroscopic guidance at the C7-T1 interspace using left paramedian approach Cervical epidurogram ANESTHESIA: Local with 1% lidocaine 3 ml and IV sedation with Versed and fentanyl, sedation time 13 Fluoroscopy was used for the procedure and images were saved in the radiology portion of the chart. EBL: Minimal PROCEDURE INDICATION: The patient presents with cervical radicular symptoms unresponsive to conservative treatment. This is the first cervical epidural steroid injection. PROCEDURE DESCRIPTION / TECHNIQUE: The patient was seen and identified in the preoperative area. Risks, benefits, complications including but not limited to infections ,bleeding ,allergic reaction to the medications ,nerve damage and incomplete pain relief, and alternatives were discussed with the patient. The patient agreed to proceed with the procedure and signed the consent. IV was started, and vital signs were stable. Patient was taken to the OR and time out was completed. The patient was placed in the prone position on procedure table and a pillow was placed under the chest area. The cervical area was prepped and draped in the usual sterile fashion. Conscious sedation was used during the procedure to decrease patients anxiety. Vital signs was monitored during the entire procedure. Using anterior-posterior fluoroscopy, the C7-T1 interlaminar space was identified and the skin over this site was marked and then infiltrated with 1% lidocaine subcutaneously. Subsequently, a 20-gauge Tuohy epidural needle was inserted and advanced toward the epidural space using the loss of resistance technique and guided by AP and 50 oblique fluoroscopy. The correct needle position in the epidural space was verified. After negative aspiration for blood and CSF and in the absence of paresthesias, Isovue 200 2 mL's was injected under live fluoroscopy with good epidural spread. After negative aspiration, a 3 ml mixture containing 10 mg of dexamethasone, 2 mL of preservative free normal saline was injected. Needle was withdrawn intact, skin was cleansed, and bandages were applied. COMPLICATIONS: None DISPOSITION / PLANS: The patient was placed in a supine position and transferred to the recovery area in a stable condition for observation. There was no evidence of lower extremity motor or sensory deficit after the procedure. Patient was discharged from the recovery room after meeting discharge criteria. Home discharge instructions were given to the patient by the staff. The patient will be scheduled a repeat procedure in 2-4 weeks.
[2020-06-02] MEDS ORDERED: IV FLUID CONTINUATION 1,000 ML IV ONE (14:22)
[2020-06-02 14:26] VITALS: PULSE 57; RESP 18
[2020-06-02 14:39] VITALS: BP 145/81
--- NOTE | 2020-06-02 16:34 | FL ---
Fluoroscopy INDICATION: Pain FINDINGS: Fluoroscopy time: 17 seconds. Images obtained: 2. IMPRESSIONS: 1. Documentation of fluoroscopy.
== END 2020-06-02 15:01 | disposition home or self-care (01) ==
LOC: ORPAIN 13:06
PROVIDERS: ATTEND Anesthesiology
DX: M50.10 Cervical disc disorder with radiculopathy, unspecified cervical region (principal)
CPT/HCPCS: 62321; J2250; J1100; J3010; Q9966; 99152

== ENCOUNTER 2020-06-16 12:40 | Day surgery (SDC) | payer MEDICARE, BC ==
[2020-06-12 15:44] VITALS: BMI 23.4
[2020-06-16 13:32] VITALS: TEMP 98.2
[2020-06-16] MEDS ORDERED: LACTATED RINGERS 1,000 ML IV ONE (13:41)
[2020-06-16] MEDS ORDERED: IOPAMIDOL M200 10 ML VIAL ONE (13:47)
[2020-06-16] MEDS ORDERED: MIDAZOLAM 2 MG/2 ML VIAL ONE (13:47)
[2020-06-16] MEDS ORDERED: DEXAMETHASONE SOD PHOSPHATE 10 MG/ML 1 ML VIAL ONE (13:47)
[2020-06-16] MEDS ORDERED: fentaNYL (PF) 50 MCG/ML 2 ML AMP ONE (13:47)
[2020-06-16] MEDS ORDERED: IV FLUID CONTINUATION 800 ML IV ONE (13:58)
--- NOTE | 2020-06-16 14:11 | FL ---
Fluoroscopy INDICATION: Pain FINDINGS: Fluoroscopy time: 5 seconds. Images obtained: 2. IMPRESSIONS: 1. Documentation of fluoroscopy.
[2020-06-16 14:14] VITALS: RESP 20
[2020-06-16 14:29] VITALS: BP 159/88; PULSE 59
--- NOTE | 2020-06-17 11:22 | P.PCN ---
Date of Procedure: 06/16/20 Description of Procedure: Diagnosis: Cervical radiculopathy Cervical degenerative disc disease POSTOPERATIVE DIAGNOSIS: Diagnoses: Cervical radiculopathy Cervical degenerative disc disease PROCEDURE Cervical Epidural steroid injection under fluoroscopic guidance at the C7-T1 interspace using left paramedian approach Cervical epidurogram ANESTHESIA: Local with 1% lidocaine 3 ml and IV sedation with Versed and fentanyl, sedation time 8 min Fluoroscopy was used for the procedure and images were saved in the radiology portion of the chart. EBL: Minimal PROCEDURE INDICATION: The patient presents with cervical radicular symptoms unresponsive to conservative treatment. This is the second cervical epidural steroid injection. PROCEDURE DESCRIPTION / TECHNIQUE: The patient was seen and identified in the preoperative area. Risks, benefits, complications including but not limited to infections ,bleeding ,allergic reaction to the medications ,nerve damage and incomplete pain relief, and alternatives were discussed with the patient. The patient agreed to proceed with the procedure and signed the consent. IV was started, and vital signs were stable. Patient was taken to the OR and time out was completed. The patient was placed in the prone position on procedure table and a pillow was placed under the chest area. The cervical area was prepped and draped in the usual sterile fashion. Conscious sedation was used during the procedure to decrease patients anxiety. Vital signs was monitored during the entire procedure. Using anterior-posterior fluoroscopy, the C7-T1 interlaminar space was identified and the skin over this site was marked and then infiltrated with 1% lidocaine subcutaneously. Subsequently, a 20-gauge Tuohy epidural needle was inserted and advanced toward the epidural space using the loss of resistance technique and guided by AP and 50 oblique fluoroscopy. The correct needle position in the epidural space was verified. After negative aspiration for blood and CSF and in the absence of paresthesias, Isovue 200 2 mL's was injected under live fluoroscopy with good epidural spread. After negative aspiration, a 3 ml mixture containing 10 mg of dexamethasone, 2 mL of preservative free normal saline was injected. Needle was withdrawn intact, skin was cleansed, and bandages were applied. COMPLICATIONS: None DISPOSITION / PLANS: The patient was placed in a supine position and transferred to the recovery area in a stable condition for observation. There was no evidence of lower extremity motor or sensory deficit after the procedure. Patient was discharged from the recovery room after meeting discharge criteria. Home discharge instructions were given to the patient by the staff. The patient will follow up with Dr Stephens
== END 2020-06-16 14:28 | disposition home or self-care (01) ==
LOC: ORPAIN 12:40
PROVIDERS: ATTEND Anesthesiology
DX: M50.10 Cervical disc disorder with radiculopathy, unspecified cervical region (principal)
CPT/HCPCS: 62321; J2250; J1100; J3010; Q9966

== ENCOUNTER 2020-08-06 09:04 | Day surgery (SDC) | payer MEDICARE, BC ==
[2020-08-05 12:53] VITALS: BMI 23.0
[~2020-08-06 09:04] MED LIST changes: -LIDOCAINE 1% 20 ML VIAL (10MG/ML) FOR IV START INTRADERMA PRN
[2020-08-06 09:44] VITALS: TEMP 97.8
[2020-08-06] MEDS ORDERED: LACTATED RINGERS 1,000 ML IV ONE (09:56)
[2020-08-06] MEDS ORDERED: LIDOCAINE 1% (10MG/ML) FOR IV START INTRADERMA ONE (09:56)
[2020-08-06] MEDS ORDERED: IOPAMIDOL M200 10 ML VIAL ONE (10:20)
[2020-08-06] MEDS ORDERED: DEXAMETHASONE SOD PHOSPHATE 10 MG/ML 1 ML VIAL ONE (10:20)
--- NOTE | 2020-08-06 10:32 | P.PCN ---
Date of Procedure: 08/06/20 Procedure(s) Performed: . PROCEDURE 1. Cervical epidural steroid injection under fluoroscopic guidance, C7-T1 (fluoroscopy images available in the radiology department ) 2. Cervical epidurogram. PREOPERATIVE DIAGNOSIS: 1- Cervical Degenerative Disc Diseases 2- Cervical radiculopathy., 3-cervical spondylosis with cervical Facet arthropathy without myelopathy POSTOPERATIVE DIAGNOSIS: : 1- Cervical Degenerative Disc Diseases , 2- Cervical radiculopathy. 3-cervical spondylosis with cervical Facet arthropathy without myelopathy ANESTHESIA: Local anesthesia with lidocaine 1 % 3 ml only . EBL 0 PROCEDURE INDICATION: The patient with neck pain and radiculitis unresponsive to conservative treatment consents for procedure. PROCEDURE DESCRIPTION / TECHNIQUE: The patient was seen and identified in the preoperative area. Risks, benefits, complications, including but not limited to infections ,bleeding , allergic reactions to the medications ,and not complete pain releife, and alternatives were discussed with the patient, the patient agreed to proceed with the procedure and signed the consent. Patient was taken to the OR and time out was completed. The patient was placed in the prone position on the procedure table. A pillow was placed under the patients chest to increase the cervical interlaminar space. The cervical area was prepped and draped in the usual sterile fashion. Vital signs were closely monitored during the procedure.. Using anterior-posterior fluoroscopy, the C7-T1 interlaminar space was identified and the skin over this site was marked and then infiltrated with 1% lidocaine subcutaneously. Subsequently, a 20-gauge 3-1/2-inch Tuohy epidural needle was inserted and advanced toward the epidural space by means of the ``hanging-drop technique and guided by AP and lateral fluoroscopy. The correct needle position in the epidural space was verified with the injection of 2 mL of the water soluble contrast dye Isovue-200 and observing an excellent epidurogram with the epidural spread of the dye, after negative aspiration for blood and CSF and in the absence of paresthesias. Again after negative aspiration, mixture containing 10 mg Dexamethasone and 2 ml of preservative- free normal saline injected and a washout of epidurogram was seen. Needle was w ithdrawn intact, skin was cleansed, and bandages were applied. Complications= none. Disposition= patient was placed in supine position and transferred to the recovery room area in stable condition and there was no evidence of upper or lower extremity motor or sensory deficit after the procedure patient was discharged from recovery room after discharge criteria met and home discharge instructions was given by the staff and patient will follow with the pain clinic in 2-4 weeks
[2020-08-06] MEDS ORDERED: IV FLUID CONTINUATION 1,000 ML IV ONE (10:37)
[2020-08-06 10:39] VITALS: BP 155/87; PULSE 71; RESP 16
--- NOTE | 2020-08-07 12:58 | FL ---
Fluoroscopy History: Cerv Epid Inj 6sec fluoro time,,1 image scanned
== END 2020-08-06 11:00 | disposition home or self-care (01) ==
LOC: ORPAIN 09:04
PROVIDERS: ATTEND Specialist
DX: M47.22 Other spondylosis with radiculopathy, cervical region (principal); M50.10 Cervical disc disorder with radiculopathy, unspecified cervical region
CPT/HCPCS: 62321; J1100; Q9966

== ENCOUNTER → 2021-12-02 | Outpatient (CLI) | payer MEDICARE, BC ==
[2021-12-02 10:31] VITALS: BP 166/100; PULSE 49; RESP 16
--- NOTE | 2021-12-02 10:57 | P.PAINPG ---
PQRS Measure Charge Sheet Comment: A 86 yr old male with at side with a history of severe and chronic low back pain secondary to lumbar degenerative disc diseases and lumbar spondylosis with facet arthropathy presents today for R tailbone pain. Pain level is currently at 0/10 in intensity as he is on a prednisone taper for a wasp bite, but escalates as high as 7/10 in intensity, waxes & wanes, sharp in character w shooting towards the R glutes. Pain is provoked by sitting for periods of 20 minutes or more. Pain is alleviated with occasions (Mobic, Aleve), home stretching regimen, repositioning and rest. Interventional pain procedures completed include DOUG C7-T1 Patient is currently on Mobic, Aleve. Patient denies any side effects of the medication(s), denies excessive drowsiness or sleepiness, denies suicidal ideation and reports that the current pain medication is helping to control the pain and improve activities of daily living. Patient denies any motor or sensory deficits. Patient denies any fever or night sweats, denies any change in the bowel movements or urination. Physical Examination: -Constitutional: Cooperative. Not in acute distress . - Neurologic: Cranial nerve II to XII intact. No focal neurological deficits. - Psychatric: Alert & oriented x 3. Matching mood & appropriate affect. Judgment and insight intact. - Musculoskeletal: Cervical spine: Muscle bulk/ tone/ strength in the bilateral upper extremities normal Vertebral body tenderness to palpation over Spurling test positive Distraction test positive Facet loading test positive Thoracic spine Muscle bulk / tone/ strength in the bilateral paraspinal muscles normal Vertebral body tender to palpation over Facet loading test positive Lumbar spine: Motor bulk/ tone/ strength lower extremities , thigh and legs : 5/5 Deep tendon reflexes : Normal Knee Jerk. Normal Ankle Jerk . Vertebral body tenderness to palpation over Lumbar Facet Loading Test positive Straight Leg Raise: positive at 30 degrees right side/ left side Gaenslen's Test positive Sacral spine : Severe tenderness over the Sacroiliac joint: right side / left side Range of motion: Flexion of the lumbar spine <60 degrees Range of motion: Extension of the lumbar spine <20 degrees Gaenslen's Test positive on R Emi test: positive right side / left side +R Thigh Thrust Test Sacral Thrust Test- R side Assessment and plan: Chronic low back pain secondary to R Sacroiliitis Recommendation of R SI joint injection. May need a series, up to every 3 mo, for optimal pain relief. Risks, benefits of procedure discussed and pt verbalized understanding. Denies anticoagulant use or medical history of diabetes. All patient questions answered MAPS reviewed and it was appropriate. I have spent less than 30 minutes on patient care today. Dr Edward was available by phone for the evaluation of this patient. The time was used to review the medical records including relevant urine studies and Prescription history (MAPs), review of the available imaging, evaluation and examination of the patient, coordination of care with the medical staff and if applicable referring physicians, as well as creation of the medical record - Pain Location Lower Back Non-Pharmacological Interventions: Position/Reposition, Standing Pharmacological Interventions: PRN Medication PQRS Narrative: Smoking Status Never smoker Hx Alcohol Use () No Home Medications: Ambulatory Orders Aspirin 81 mg PO DAILY 10/16/14 amLODIPine BESYLATE [Norvasc] 2.5 mg PO DAILY 04/09/18 Sucralfate [Carafate] 1 gm PO BID 04/27/18 Simvastatin [Zocor] 10 mg PO SUTUTHSA 01/09/19 hydroCHLOROthiazide 25 mg PO DAILY 01/09/19 Biotin 15 mg PO DAILY 06/06/19 Lansoprazole [Prevacid] 15 mg PO BID 05/13/20 ALPRAZolam [Xanax] 0.25 mg PO DAILY PRN 05/28/20 Levothyroxine Sodium [Synthroid] 50 mcg PO DAILY 05/28/20 Prevagen 1 tab PO DAILY 05/28/20 Gabapentin [Neurontin] 300 mg PO HS 08/05/20 Controlled Substance Measures - Controlled Substance Measures Is patient prescribed a controlled substance at discharge?: No
== END ==
LOC: PNWHC3 09:26
PROVIDERS: ATTEND Specialist
DX: M51.36 Other intervertebral disc degeneration, lumbar region (principal); M46.1 Sacroiliitis, not elsewhere classified
CPT/HCPCS: 99211

== ENCOUNTER 2021-12-23 08:33 | Day surgery (SDC) | payer MEDICARE, BC ==
[2021-12-21 15:13] VITALS: BMI 24.3
[2021-12-23 09:13] VITALS: TEMP 97.4
[2021-12-23] MEDS ORDERED: LACTATED RINGERS 1,000 ML IV ONE (09:20)
[2021-12-23] MEDS ORDERED: ROPIVACAINE 5 MG/ML 20 ML AMPULE ONE (09:37)
[2021-12-23] MEDS ORDERED: methylPREDNISolone ACETATE 40 MG/ML 1 ML VIAL ONE (09:37)
--- NOTE | 2021-12-23 09:47 | P.PCN ---
Date of Procedure: 12/23/21 Procedure(s) Performed: Procedure= bilateral sacroiliac joints steroid injection under fluoroscopy guidance (fluoroscopy image stored on file in the radiology Department ) Preoperative diagnosis= 1-sacroiliitis 2-lumbar degenerative disc disease 3- lumbar facet arthropathy Postoperative diagnosis=Same as preop Diagnosis . Complication = none Condition= stable Anesthesia= local anesthetic with lidocaine 1% 2 mL Indication for the procedure= patient complaining of low back pain , examination was positive for severe tenderness over the Right sacroiliac joints ,and patient diagnosed with sacroiliitis, for this reason he was good candidate for sacroiliac joint steroid injection. Description of the procedure= procedure risk and benefits discussed with the patient, including but not limited, risk of infection and bleeding, and ALLERGIC reaction to the medication and not complete pain relief and patient agreed with the preceding patient taken to the operating room, placed in prone position or standard monitors applied to the patient then after induction of anesthesia back prepped with chlorhexidine 3 times , Then under strict sterile technique, I did the right sacroiliac joint the which was identified under fluoroscopy guidance been local infiltration of the skin and subcu interstitial with lidocaine 1% then 25-gauge Quincke Needle advanced slowly under fluoroscopy and placed in the right sacroiliac joint needle placement confirmed with AP and oblique and lateral view and after appropriate needle placement confirmed and after negative aspiration, or heme , then Ropivacaine 0.5% 4 mL, and 40 mg of Depo-Medrol mixed together and injected in the right sacroiliac joint after negative aspiration patient tolerated the procedure well without any complication.
[2021-12-23] MEDS ORDERED: IV FLUID CONTINUATION 1,000 ML IV ONE (09:52)
--- NOTE | 2021-12-23 10:02 | FL ---
Intraoperative/procedural fluoroscopic services were provided. Total fluoroscopy time is 2 seconds wi th a total of 1 submitted images to PACS. Please see the operative/procedural note for further detail s.
[2021-12-23 10:19] VITALS: BP 167/80; PULSE 58; RESP 15
[2021-12-23] MEDS ORDERED: LACTATED RINGERS 1,000 ML IV SCH ×2 (10:47)
[2021-12-23] MEDS ORDERED: LIDOCAINE 1% (10MG/ML) FOR IV START INTRADERMA PRN (10:47)
== END 2021-12-23 10:32 | disposition home or self-care (01) ==
LOC: ORPAIN 08:33
PROVIDERS: ATTEND Specialist
DX: M46.1 Sacroiliitis, not elsewhere classified (principal); M51.36 Other intervertebral disc degeneration, lumbar region; M47.816 Spondylosis without myelopathy or radiculopathy, lumbar region; Z88.0 Allergy status to penicillin; Z88.5 Allergy status to narcotic agent; Z88.8 Allergy status to other drugs, medicaments and biological substances; Z88.3 Allergy status to other anti-infective agents; Z88.2 Allergy status to sulfonamides; Z79.82 Long term (current) use of aspirin; Z79.899 Other long term (current) drug therapy; Z83.6 Family history of other diseases of the respiratory system; Z82.49 Family history of ischemic heart disease and other diseases of the circulatory system; Z80.7 Family history of other malignant neoplasms of lymphoid, hematopoietic and related tissues
CPT/HCPCS: J1030; J2795; G0260; 27096

== ENCOUNTER → 2023-01-06 | Outpatient (CLI) | payer MEDICARE, BC ==
--- NOTE | 2023-01-06 16:11 | US ---
EXAMINATION TYPE: US carotid duplex BILAT DATE OF EXAM: 01/06/2023 COMPARISON: US CLINICAL INDICATION: Male, 87 years old with history of R42 dizziness, R00.1 BRADYCARDIA, UNSPECIFIED ; Dizziness TECHNIQUE: Carotid duplex ultrasound examination. Indirect Doppler criteria was utilized. FINDINGS: EXAM MEASUREMENTS: RIGHT: Peak Systolic Velocity (PSV) cm/sec ----- Right CCA: 70.0 ----- Right ICA: 74.1 ----- Right ECA: 92.4 ICA/CCA ratio: 1.1 RIGHT: End Diastole cm/sec ----- Right CCA: 21.7 ----- Right ICA: 18.3 ----- Right ECA: 10.2 LEFT: Peak Systolic Velocity (PSV) cm/sec ----- Left CCA: 83.6 ----- Left ICA: 185 ----- Left ECA: 165 ICA/CCA ratio: 2.2 LEFT: End Diastole cm/sec ----- Left CCA: 13.9 ----- Left ICA: 24.0 ----- Left ECA: 18.0 VERTEBRALS (direction of flow): Right Vertebral: Antegrade Left Vertebral: Antegrade Rhythm: Arrhythmia [employer] NOTES: Elevated velocities left ICA and ECA IMPRESSION: 1. 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 2. Less than 50% stenosis of the right carotid bifurcation. Criteria for Assigning % of Stenosis / Diameter reduction (Estimation based on the indirect measurements of the internal carotid artery velocities (ICA PSV). 1. Normal (no stenosis)=ICA PSV < 125 cm/s: ratio < 2.0: ICA EDV<40 cm/s. 2. Less than 50% stenosis=ICA PSV < 125 cm/s: ratio < 2.0: ICA EDV<40 cm/s. 3. 50 to 69% stenosis=ICA PSV of 125 to 230 cm/s: ration 2.0 ? 4.0: ICA EDV 40-100 cm/s. 4. Greater than 70% stenosis to near occlusion= ICA PSV > 230 cm/s: ratio > 4.0: ICA EDV > 100 cm/s. 5. Near occlusion= ICA PSV velocities may be low or undetectable: variable ratio and ICA EDV. 6. Total occlusion=unable to detect flow.
== END | disposition home or self-care (01) ==
LOC: RADUSWWP 10:51
PROVIDERS: ATTEND Family Medicine
DX: I65.23 Occlusion and stenosis of bilateral carotid arteries (principal); I10 Essential (primary) hypertension; I49.5 Sick sinus syndrome; R42 Dizziness and giddiness
CPT/HCPCS: 93880

== ENCOUNTER → 2023-03-06 | Outpatient (CLI) | payer MEDICARE, BC ==
--- NOTE | 2023-03-06 11:38 | XR ---
EXAMINATION TYPE: XR chest 2V DATE OF EXAM: 03/06/2023 11:30 AM COMPARISON: Chest radiographs from 01/02/2022 TECHNIQUE: XR chest 2V Frontal and lateral views of the chest. CLINICAL INDICATION:Male, 87 years old with history of R051,J180 COUGH,BRONCHOPNEUMONIA; FINDINGS: Lungs/Pleura: There is flattening of the diaphragm with increased lucency of the lungs. No evidence o f pneumothorax, pleural effusion or focal consolidation. Pulmonary vascularity: Unremarkable. Heart/mediastinum: Cardiomediastinal silhouette is unremarkable. Atherosclerotic calcifications are seen in the aorta. Musculoskeletal: Multiple level degenerative disc disease changes seen throughout the spine. IMPRESSION: 1. No acute cardiopulmonary disease process. 2. COPD changes.
== END | disposition home or self-care (01) ==
LOC: RADXRYALE 11:20
PROVIDERS: ATTEND Family Medicine
DX: J44.9 Chronic obstructive pulmonary disease, unspecified (principal); R05.1 Acute cough; J18.0 Bronchopneumonia, unspecified organism
CPT/HCPCS: 71046

== ENCOUNTER → 2023-06-27 | Outpatient (CLI) | payer MEDICARE, BC ==
[2023-06-27 15:50] LABS: Anion Gap 10.7 mmol/L (4.00-12.00); Carbon Dioxide 29.3 mmol/L (21.6-31.8); Potassium 4.4 mmol/L (3.5-5.5)
[2023-06-27 16:19] LABS: Basophils # (A) 0.05 X 10*3/uL (0.00-0.10); Basophils % (A) 0.7 %; Eosinophils # (A) 0.12 X 10*3/uL (0.04-0.35); Eosinophils % (A) 1.6 %; HCT 44.3 % (39.6-50.0); HGB 14.7 g/dL (13.0-17.0); Lymphocytes # (A) 1.98 X 10*3/uL (0.90-5.00); MCH 32.5 pg (27.0-32.0); MCHC 33.2 g/dL (32.0-37.0); MCV 97.8 FL (80.0-97.0); Mean Platelet Volume 10.5 FL (9.5-12.2); Monocytes # (A) 0.76 X 10*3/uL (0.20-1.00); NRBC Per 100 WBC 0 X 10*3/uL (0.00-0.01); Neutrophils # (A) 4.71 X 10*3/uL (1.80-7.70); Neutrophils % (A) 61.6 %; Platelet Count 198 X 10*3/uL (140-440); RBC 4.53 X 10*6/uL (4.40-5.60); RDW 12.9 % (11.5-14.5); WBC 7.63 X 10*3/uL (4.50-10.00)
== END | disposition home or self-care (01) ==
LOC: LABPAT 11:54
PROVIDERS: ATTEND Orthopaedic Surgery
DX: Z01.812 Encounter for preprocedural laboratory examination (principal); M23.91 Unspecified internal derangement of right knee
CPT/HCPCS: 80051; 85025

== ENCOUNTER 2023-07-20 12:02 | Day surgery (SDC) | payer MEDICARE, BC ==
[2023-07-17 12:34] VITALS: BMI 23.1
--- NOTE | 2023-07-19 18:28 | HP ---
HISTORY AND PHYSICAL DATE OF SURGERY: 07/20/2023. HISTORY OF PRESENT ILLNESS: Larry Guillen is an -[id number]-pdh gentleman seen with progressive right knee pain, failing conservative treatment measures. We discussed options with him. He elected to proceed with right knee arthroscopy. Consent was obtained. Cardiac clearance was provided by Dr. Weems. PAST MEDICAL HISTORY: Cardiovascular disease, hypertension, hyperlipidemia, hypothyroidism. PAST SURGICAL HISTORY: Cataract surgery, cardiac catheterization with stents, left shoulder arthroscopic rotator cuff repair, sinus surgery. DAILY MEDICATIONS: 1. Amlodipine. 2. Hydrochlorothiazide. 3. Levothyroxine. 4. Potassium. 5. Atorvastatin. 6. Aleve. ALLERGIES: Augmentin, codeine, Darvocet, Dilaudid, Keflex, morphine, Nexium. SOCIAL HISTORY: Denies tobacco use. PHYSICAL EVALUATION OF THE RIGHT KNEE: Range of motion is -2/3 to 110 degrees. Mild effusion. Tenderness, medial joint line. Positive medial Rebekah's. Ligaments stable. Hip rotation without pain. Distal neurovascular exam intact. IMAGING STUDIES: Right knee radiographs revealed moderate to severe osteoarthritis involving the patellofemoral compartment. MRI of the right knee revealed a medial meniscal tear and patellofemoral compartment osteoarthritis. IMPRESSION: 1. Internal derangement of right knee with medial meniscal tear. 2. Right knee patellofemoral compartment osteoarthritis. 3. Hyperlipidemia. 4. Hypertension. 5. Hypothyroidism. 6. Cardiovascular disease. PLAN: Right knee arthroscopy with partial medial meniscectomy and debridement. MMODL / IJN: [id number] /
[~2023-07-20 12:02] MED LIST changes: +HYDROmorphone 0.5 MG/0.5 ML SYRINGE IVP PRN; -LACTATED RINGERS 1,000 ML IV SCH
[2023-07-20] MEDS: LACTATED RINGERS 1,000 ML IV SCH (13:17)
[2023-07-20] MEDS: DEXAMETHASONE SOD PHOSPHATE 4 MG/ML 1 ML VIAL IV ONE (13:43)
[2023-07-20] MEDS ORDERED: SUCCINYLCHOLINE CHLORIDE 200 MG/10 ML VIAL IV ONE (13:45)
[2023-07-20] MEDS ORDERED: ePHEDrine 50 MG/ML 1 ML VIAL ONE (13:45)
[2023-07-20] MEDS: ONDANSETRON 4 MG/2 ML VIAL IVP ONE (13:45)
[2023-07-20] MEDS ORDERED: PROPOFOL 10 MG/ML 20 ML VIAL IV ONE (13:45)
[2023-07-20] MEDS ORDERED: GLYCOPYRROLATE 0.2 MG/ML 2 ML VIAL ONE (13:45)
[2023-07-20] MEDS ORDERED: fentaNYL (PF) 50 MCG/ML 2 ML AMP ONE (13:45)
[2023-07-20] MEDS: BUPIVACAINE (PF) 0.25% 30 ML VIAL SQ ONE ×2 (13:49→14:28)
--- NOTE | 2023-07-20 14:51 | P.OP ---
Date of Procedure: 07/20/23 Preoperative Diagnosis: Internal derangement right knee Postoperative Diagnosis: 1. Tear medial and lateral meniscus right knee 2. Grade IV chondromalacia medial femoral condyle right knee 3. Reactive synovitis medial, lateral and suprapatellar compartments right knee 4. 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 Arthroscopic partial medial and lateral meniscectomy right knee 2. Arthroscopic microfracture medial femoral condyle right knee 3. Arthroscopic partial synovectomy medial, lateral and suprapatellar compartments right knee Anesthesia: ALANISA, local Surgeon: Rob Smith Estimated Blood Loss (ml): 8 Pathology: none sent Condition: stable Disposition: PACU Indications for Procedure: 88-year-old gentleman seen with progressive right knee pain. After treatment options were discussed with him, he elected to proceed with arthroscopy. Operative Findings: See description of procedure Description of Procedure: Patient was taken to the operative suite. Patient underwent a general anesthetic by the department of anesthesia. Patient was given preoperative antibiotics. The right lower extremity was placed in a well-padded arthroscopic leg felix. The right leg was prepped and draped in the normal sterile orthopedic fashion. A lateral parapatellar and suprapatellar incision was made. Trochars were inserted. Arthroscopy was initiated. Suprapatellar pouch revealed diffuse thick reactive synovitis. The patellofemoral joint appeared to articulate congruently. There was grade IV chondromalacia of the patellofemoral joint with exposed bone noted on both sides. The scope was guided into the medial gutter. No loose bodies or plica were identified. The scope was then guided into the medial compartment. A medial parapatellar incision was made. Trocar inserted followed by probe. There was a complex tear involving the posterior horn and mid body of the medial meniscus. There were grade II/III chondromalacia changes of the medial femoral condyle with a large osteochondral flap tear anteriorly. There was some thick reactive synovitis diffusely. I performed a partial medial meniscectomy getting down to stable meniscal tissue. I performed a chondroplasty of the medial femoral condyle getting down to stable osteochondral tissue. I performed a partial synovectomy decompressing the reactive synovitis anteriorly. I did note an area of exposed bone along that area where I debrided out that osteochondral flap tear which measured under centimeter. I introduced a microfracture awl performed a microfracture to that area penetrating the bone with resultant bleeding at the microfracture site. The residual meniscus was probed and was found to be stable. The residual osteochondral surface was stable. There was good decompression of the synovitis. Scope and probe were then guided into the intercondylar notch. Cruciates were identified, probed and found to be stable. The scope and probe were then guided into lateral compartment. There was a radial tear along the mid body area of the lateral meniscus. There were grade I/II chondromalacia changes along the lateral compartment. There was some thick reactive synovitis anteriorly. I performed a partial lateral meniscectomy getting down to stable meniscal tissue. I performed a partial synovectomy decompressing the reactive synovitis. The residual meniscus was stable. There was good decompression of the synovitis. The scope was in guided back into the suprapatellar compartment. I introduced a motorized shaver into the suprapatellar compartment. I debrided some piecemeal fragments of meniscus that I encountered. I performed a partial synovectomy. The shaver was removed. There was good decompression of the synovitis. I took 1 more look around the entire knee, no residual debris. Instruments were now removed from the joint. The joint was infiltrated with .25% Marcaine. Steri-Strips were applied to the portal sites. Sterile dressings were applied. The patient was placed into a GABY hose. No tourniquet was utilized. The patient was awakened, transferred to a bed and taken to recovery stable satisfactory condition.
[2023-07-20 15:14] VITALS: TEMP 97.1
[2023-07-20 15:46] VITALS: BP 141/64; RESP 18
[2023-07-20 16:55] VITALS: PULSE 50
== END 2023-07-20 16:55 | disposition home or self-care (01) ==
LOC: OR 12:02
PROVIDERS: ATTEND Orthopaedic Surgery
DX: S83.241A Other tear of medial meniscus, current injury, right knee, initial encounter (principal); S83.281A Other tear of lateral meniscus, current injury, right knee, initial encounter; M94.261 Chondromalacia, right knee; M65.861 Other synovitis and tenosynovitis, right lower leg; I10 Essential (primary) hypertension; E78.5 Hyperlipidemia, unspecified; E03.9 Hypothyroidism, unspecified; I25.10 Atherosclerotic heart disease of native coronary artery without angina pectoris; Z79.899 Other long term (current) drug therapy; Z88.5 Allergy status to narcotic agent; Z88.1 Allergy status to other antibiotic agents; Z88.0 Allergy status to penicillin; X58.XXXA Exposure to other specified factors, initial encounter
CPT/HCPCS: 29880; 29879; 29876; J0330; J1100; J0690; J2405; J3010; J2704; J0665

== ENCOUNTER → 2024-01-24 | Outpatient (CLI) | payer MEDICARE, BC ==
--- NOTE | 2024-01-24 14:13 | XR ---
EXAMINATION TYPE: XR lumbosacral spine min 4V DATE OF EXAM: 01/24/2024 1:48 PM INDICATION: Patient age:Male; 88 years old; Reason for study: [id number],[id number] LBP,DDD; YCH. COMPARISON: Lumbar spine radiograph 03/02/2018 TECHNIQUE: Frontal, lateral , bilateral oblique and coned in L5-S1 lateral views of the spine. FINDINGS: There are 5 lumbar type vertebral bodies identified. No evidence of any acute osseous patho logy. No evidence of loss of vertebral body height is seen. Similar mild retrolisthesis of L1 on L2. Multilevel degenerative disc disease with disc space narrowing, endplate sclerosis, and anterior ost eophytosis. Multilevel facet arthropathy of the lower lumbar spine most pronounced at L5-S1. Mild S-s haped scoliotic curvature of the thoracolumbar spine. IMPRESSION: 1. No acute process. 2. Similar moderate multilevel degenerative disc disease. 3. Mild S-shaped scoliotic curvature of the thoracolumbar spine.
== END | disposition home or self-care (01) ==
LOC: RADXRYALE 13:27
PROVIDERS: ATTEND Family Medicine
DX: M51.36 Other intervertebral disc degeneration, lumbar region (principal); M47.817 Spondylosis without myelopathy or radiculopathy, lumbosacral region; M41.9 Scoliosis, unspecified
CPT/HCPCS: 72110

== ENCOUNTER 2024-03-13 15:48 | Emergency (ER) | payer MEDICARE, BC ==
--- NOTE | 2024-03-13 16:03 | ED ---
Neuro HPI - General Chief Complaint: Neuro Symptoms/Deficit Stated Complaint: dizzy, blurred vision Time Seen by Provider: 03/13/24 16:02 Source: patient, RN/MD Mode of arrival: ambulatory Limitations: no limitations - Related Data Home Medications: Home Medications Medication Instructions Recorded Confirmed Aspirin 81 mg PO QAM 10/16/14 07/20/23 amLODIPine BESYLATE [Norvasc] 2.5 mg PO HS 04/09/18 07/20/23 Sucralfate [Carafate] 1 gm PO BID 04/27/18 07/20/23 hydroCHLOROthiazide 25 mg PO QAM 01/09/19 07/20/23 ALPRAZolam [Xanax] 0.25 mg PO DAILY PRN 05/28/20 07/17/23 Lansoprazole [Prevacid 24Hr] 15 mg PO BID 01/03/22 07/20/23 Clopidogrel [Plavix] 75 mg PO QAM 07/17/23 07/20/23 Naproxen Sodium [Aleve] 220 mg PO QID PRN 07/17/23 07/17/23 Nitroglycerin 0.4 mg PO DAILY 07/20/23 07/20/23 Previous Rx's Medication Instructions Recorded Atorvastatin [Lipitor] 40 mg PO HS 60 Days #60 tab 01/04/22 traMADol HCl [Ultram] 50 mg PO Q6H PRN #12 tab 07/20/23 Allergies/Adverse Reactions: Allergies Allergy/AdvReac Type Severity Reaction Status Date / Time amoxicillin trihydrate Allergy Itching/PASSED Verified 03/13/24 15:52 [From Augmentin] OUT diazepam [From Valium] Allergy Nausea & Verified 03/13/24 15:52 Vomiting guaifenesin [From Entex LA] Allergy Unknown Verified 03/13/24 15:52 hydromorphone HCl Allergy Nausea & Verified 03/13/24 15:52 [From Dilaudid] Vomiting levothyroxine Allergy Rash/Hives Verified 03/13/24 15:52 metoclopramide [From Reglan] Allergy Nausea & Verified 03/13/24 15:52 Vomiting morphine Allergy Nausea & Verified 03/13/24 15:52 Vomiting orphenadrine [From Norflex] Allergy can't Verified 03/13/24 15:52 urinate phenylephrine [From Entex LA] Allergy Unknown Verified 03/13/24 15:52 phenylpropanolamine Allergy Unknown Verified 03/13/24 15:52 [From Entex LA] potassium clavulanate Allergy Itching/PASSED Verified 03/13/24 15:52 [From Augmentin] OUT potassium iodide Allergy Unknown Verified 03/13/24 15:52 tolmetin [From Tolectin] Allergy itching/passed Verified 03/13/24 15:52 out albuterol [From Ventolin HFA] AdvReac Dizzy Verified 03/13/24 15:52 atorvastatin calcium AdvReac EYE "HAD Verified 03/13/24 15:52 [From Lipitor] BLOOD IN IT" cephalexin monohydrate AdvReac Nausea & Verified 03/13/24 15:52 [From Keflex] Vomiting codeine AdvReac SEVERE Verified 03/13/24 15:52 HEADACHE esomeprazole magnesium AdvReac SEVERE Verified 03/13/24 15:52 [From Nexium] HEADACHE propoxyphene AdvReac "TONGUE Verified 03/13/24 15:52 [From Darvocet-N] PEELED" Sulfa (Sulfonamide AdvReac Nausea & Verified 03/13/24 15:52 Antibiotics) Vomiting ANTIHISTAMINES AdvReac UNABLE TO Uncoded 03/13/24 15:52 URINATE Review of Systems ROS Statement: Those systems with pertinent positive or pertinent negative responses have been documented in the HPI. ROS Other: All systems not noted in ROS Statement are negative. General Exam Limitations: no limitations Past Medical History Past Medical History: Coronary Artery Disease (CAD), Cancer, GERD/Reflux, Hyperlipidemia, Hypertension, Osteoarthritis (OA), Prostate Disorder, Syncope Additional Past Medical History / Comment(s): basal & squamous skin cancer, hiatal hernia, duodenal ulcer, constipation, diverticular disease, chronic low back pain, DJD, chronic R shoulder pain d/t torn rotator cuff, gout, BPH with surgery, vasovagal syncope, bronchitis, sinus problems, r eye blurry vision since cataract surg., increasing GERD lately-"can't eat after 6pm" PT, LEFT SHOULDER PAIN Last Myocardial Infarction Date:: 2016 History of Any Multi-Drug Resistant Organisms: None Reported Past Surgical History: Heart Catheterization, Heart Catheterization With Stent, Orthopedic Surgery, Prostate Surgery Additional Past Surgical History / Comment(s): PCI with stents (total of 5), L rotator cuff repair, R shoulder injection, skin cancer removed from face, hemorroidectomy, EGD, colonoscopy with rectal polypectomy, TURP, sinus surgery, bilateral cataract removals with lens implants. Past Anesthesia/Blood Transfusion Reactions: Previous Problems w/ Anesthesia Additional Past Anesthesia/Blood Transfusion Reaction / Comment(s): had hard time waking up post op x1 Date of Last Stent Placement:: 10/28/2005,10/17/2014, Past Psychological History: No Psychological Hx Reported Smoking Status: Never smoker - Past Family History Son(s) Family Medical History: Cancer Additional Family Medical History / Comment(s): Follicular lymphoma Mother Family Medical History: Deep Vein Thrombosis (DVT) Additional Family Medical History / Comment(s): DVTs in legs Father Family Medical History: COPD Additional Family Medical History / Comment(s): emphysema Course Vital Signs 03/13/24 15:53 Temperature 97.6 F Pulse Rate 69 Respiratory 20 Rate Blood Pressure 169/85 O2 Sat by Pulse 99 Oximetry Disposition Referrals: Rosalio Moore DO [Primary Care Provider] - 1-2 days
--- NOTE | 2024-03-13 16:34 | ED ---
General Adult HPI - General Chief complaint: Neuro Symptoms/Deficit Stated complaint: dizzy, blurred vision Time Seen by Provider: 03/13/24 16:02 Source: patient, RN/MD Mode of arrival: ambulatory Limitations: no limitations - History of Present Illness Initial comments: Dictation was produced using [employer] dictation software. please excuse any grammatical, word or spelling errors. Chief Complaint: 88-year-old male presents to the emergency department for concern for stroke History of Present Illness: Patient is a 88-year-old male presents to the e mergency department after he was at his neurology specialist office. He was at the optometry office for follow-up of his double vision. He was prescribed glasses several months ago. Today he told neurology specialist that his vision is starting to get worse. He has history of TIA and a spot on his brain that he follows up with neurology for. Patient states he feels like over the last several weeks his vision has been getting worse. Denies any other deficits. Otherwise feels fine. Some shortness states that he was worried that patient is having impending stroke. The ROS documented in this emergency department record has been reviewed and confirmed by me. Those systems with pertinent positive or negative responses have been documented in the HPI. All other systems are other negative and/or noncontributory. - Related Data Home Medications Medication Instructions Recorded Confirmed Aspirin 81 mg PO QAM 10/16/14 07/20/23 amLODIPine BESYLATE [Norvasc] 2.5 mg PO HS 04/09/18 07/20/23 Sucralfate [Carafate] 1 gm PO BID 04/27/18 07/20/23 hydroCHLOROthiazide 25 mg PO QAM 01/09/19 07/20/23 ALPRAZolam [Xanax] 0.25 mg PO DAILY PRN 05/28/20 07/17/23 Lansoprazole [Prevacid 24Hr] 15 mg PO BID 01/03/22 07/20/23 Clopidogrel [Plavix] 75 mg PO QAM 07/17/23 07/20/23 Naproxen Sodium [Aleve] 220 mg PO QID PRN 07/17/23 07/17/23 Nitroglycerin 0.4 mg PO DAILY 07/20/23 07/20/23 Previous Rx's Medication Instructions Recorded Atorvastatin [Lipitor] 40 mg PO HS 60 Days #60 tab 01/04/22 traMADol HCl [Ultram] 50 mg PO Q6H PRN #12 tab 07/20/23 Allergies Allergy/AdvReac Type Severity Reaction Status Date / Time amoxicillin trihydrate Allergy Itching/PASSED Verified 03/13/24 15:52 [From Augmentin] OUT diazepam [From Valium] Allergy Nausea & Verified 03/13/24 15:52 Vomiting guaifenesin [From Entex LA] Allergy Unknown Verified 03/13/24 15:52 hydromorphone HCl Allergy Nausea & Verified 03/13/24 15:52 [From Dilaudid] Vomiting levothyroxine Allergy Rash/Hives Verified 03/13/24 15:52 metoclopramide [From Reglan] Allergy Nausea & Verified 03/13/24 15:52 Vomiting morphine Allergy Nausea & Verified 03/13/24 15:52 Vomiting orphenadrine [From Norflex] Allergy can't Verified 03/13/24 15:52 urinate phenylephrine [From Entex LA] Allergy Unknown Verified 03/13/24 15:52 phenylpropanolamine Allergy Unknown Verified 03/13/24 15:52 [From Entex LA] potassium clavulanate Allergy Itching/PASSED Verified 03/13/24 15:52 [From Augmentin] OUT potassium iodide Allergy Unknown Verified 03/13/24 15:52 tolmetin [From Tolectin] Allergy itching/passed Verified 03/13/24 15:52 out albuterol [From Ventolin HFA] AdvReac Dizzy Verified 03/13/24 15:52 atorvastatin calcium AdvReac EYE "HAD Verified 03/13/24 15:52 [From Lipitor] BLOOD IN IT" cephalexin monohydrate AdvReac Nausea & Verified 03/13/24 15:52 [From Keflex] Vomiting codeine AdvReac SEVERE Verified 03/13/24 15:52 HEADACHE esomeprazole magnesium AdvReac SEVERE Verified 03/13/24 15:52 [From Nexium] HEADACHE propoxyphene AdvReac "TONGUE Verified 03/13/24 15:52 [From Darvocet-N] PEELED" Sulfa (Sulfonamide AdvReac Nausea & Verified 03/13/24 15:52 Antibiotics) Vomiting ANTIHISTAMINES AdvReac UNABLE TO Uncoded 03/13/24 15:52 URINATE Review of Systems ROS Statement: Those systems with pertinent positive or pertinent negative responses have been documented in the HPI. ROS Other: All systems not noted in ROS Statement are negative. Past Medical History Past Medical History: Coronary Artery Disease (CAD), Cancer, GERD/Reflux, Hyperlipidemia, Hypertension, Osteoarthritis (OA), Prostate Disorder, Syncope Additional Past Medical History / Comment(s): basal & squamous skin cancer, hiatal hernia, duodenal ulcer, constipation, diverticular disease, chronic low back pain, DJD, chronic R shoulder pain d/t torn rotator cuff, gout, BPH with s urgery, vasovagal syncope, bronchitis, sinus problems, r eye blurry vision since cataract surg., increasing GERD lately-"can't eat after 6pm" PT, LEFT SHOULDER PAIN Last Myocardial Infarction Date:: 2016 History of Any Multi-Drug Resistant Organisms: None Reported Past Surgical History: Heart Catheterization, Heart Catheterization With Stent, Orthopedic Surgery, Prostate Surgery Additional Past Surgical History / Comment(s): PCI with stents (total of 5), L rotator cuff repair, R shoulder injection, skin cancer removed from face, hemorroidectomy, EGD, colonoscopy with rectal polypectomy, TURP, sinus surgery, bilateral cataract removals with lens implants. Past Anesthesia/Blood Transfusion Reactions: Previous Problems w/ Anesthesia Additional Past Anesthesia/Blood Transfusion Reaction / Comment(s): had hard time waking up post op x1 Date of Last Stent Placement:: 10/28/2005,10/17/2014, Past Psychological History: No Psychological Hx Reported Smoking Status: Never smoker - Past Family History Son(s) Family Medical History: Cancer Additional Family Medical History / Comment(s): Follicular lymphoma Mother Family Medical History: Deep Vein Thrombosis (DVT) Additional Family Medical History / Comment(s): DVTs in legs Father Family Medical History: COPD Additional Family Medical History / Comment(s): emphysema General Exam - General Exam Comments Initial Comments: PHYSICAL EXAM: General Impression: Alert and oriented x3, not in acute distress HEENT: Normocephalic atraumatic, extra-ocular movements intact, pupils equal and reactive to light bilaterally, mucous membranes moist. Cardiovascular: Heart regular rate and rhythm Chest: Able to complete full sentences, no retractions, no tachypnea Abdomen: abdomen soft, non-tender, non-distended, no organomegaly Musculoskeletal: Pulses present and equal in all extremities, no peripheral edema Motor: no focal deficits noted Neurological: CN II-XII grossly intact, no focal motor or sensory deficits noted Skin: Intact with no visualized rashes Psych: Normal affect and mood Limitations: no limitations Course Vital Signs 03/13/24 03/13/24 03/13/24 15:53 16:33 17:08 Temperature 97.6 F Pulse Rate 69 58 L 66 Respiratory 20 18 18 Rate Blood Pressure 169/85 135/112 173/94 O2 Sat by Pulse 99 98 97 Oximetry EKG Findings - EKG Comments: EKG Findings:: My EKG interpretation: Ventricular rate 65, sinus rhythm, MO 167, QRS 88, QTc 367. No MO prolongation, no QTC prolongation, no ST or T-wave changes noted. Sinus arrhythmia overall, this EKG is unremarkable Medical Decision Making - Medical Decision Making Was pt. sent in by a medical professional or institution (, DOMINGUEZ, CLERK CHECKER, urgent care, hospital, or snf...) When possible be specific @ -Sent in from neurology specialist office Did you speak to anyone other than the patient for history (EMS, parent, family, police, friend...)? What history was obtained from this source @ -No Did you review nursing and triage notes (agree or disagree)? Why? @ -I reviewed and agree with nursing and triage notes Were old charts reviewed (outside hosp., previous admission, EMS record, old EKG, old radiological studies, urgent care reports/EKG's, snf records)? Report findings @ -No old charts were reviewed Differential Diagnosis (chest pain, altered mental status, abdominal pain women, abdominal pain men, vaginal bleeding, musculoskeletal, weakness, fever, dyspnea, syncope, headache, dizziness, GI bleed, back pain, seizure, CVA, palpatations, mental health)? @ - Differential CVA: Ischemic stroke, hemorrhagic stroke, brain tumor, atypical migraine, Wernicke's encephalopathy, seizure, multiple sclerosis, meningitis, encephalitis, hypoglycemia, Guillain-Vela, electrolytes disturbance, myasthenia gravis.... This is not meant to be an all-inclusive list EKG interpreted by me (3pts min.). @ -See above X-rays interpreted by me (1pt min.). @ -Chest x-ray nonacute CT interpreted by me (1pt min.). @ -CT brain and CT angiography head and neck shows no acute processes U/S interpreted by me (1pt. min.). @ -None done What testing was considered but not performed or refused? (CT, X-rays, U/S, labs)? Why? @ -None What meds were considered but not given or refused? Why? @ -None Was smoking cessation discussed for >3mins.? @ -No Were there social determinants of health that impacted care today? How? (Homelessness, low income, unemployed, alcoholism, drug addiction, transportation, low edu. Level, literacy, decrease access to med. care, fpc, rehab)? @ -No Was there de-escalation of care discussed even if they declined (Discuss DNR or withdrawal of care, Hospice)? DNR status @ -No What co-morbidities impacted this encounter? (DM, HTN, Smoking, COPD, CAD, Cancer, CVA, ARF, Chemo, Hep., AIDS, mental health diagnosis, sleep apnea, morbid obesity)? @ -History of TIA Was patient admitted / discharged? Hospital course, mention meds given and route, prescriptions, significant lab abnormalities, going to OR and other pertinent info. @ -58-year-old male presents to the emergency department from neurology specialist office for diplopia and double vision. Patient states that symptoms are chronic and has been ongoing for the last couple months he follows up with a neurologist and neurologist is aware of patient's symptoms. Vital signs stable. Labs and imaging is unremarkable. At this point no concern for acute CVA. told to follow-up with neurology Did you discuss the management of the patient with other professionals (professionals i.e. , PA, CLERK CHECKER, lab, RT, psych nurse, social service coordinator, director of music, teacher, workers' compensation hearings officer, case liner)? Give summary @ -No Was critical care preformed (if so, how long)? @ -No Undiagnosed new problem with uncertain prognosis? @ -No Drug Therapy requiring intensive monitoring for toxicity (Heparin, Nitro, Insulin, Cardizem)? @ -No Were any procedures done? @ -No Diagnosis/symptom? Acute, or Chronic, or Acute on Chronic? Uncomplicated (without systemic symptoms) or Complicated (systemic symptoms)? @ -Acute on chronic visual changes Side effects of treatment? @ -No Exacerbation, Progression, or Severe Exacerbation? @ -No Poses a threat to life or bodily function? How? (Chest pain, [place], [place], pneumonia, PE, COPD, DKA, ARF, appy, cholecystitis, CVA, Diverticulitis, Homicidal, Suicidal, threat to staff... and all critical care pts) @ -No - Lab Data Result diagrams: 03/13/24 16:32 03/13/24 16:32 Lab Results 03/13/24 03/13/24 03/13/24 Range/Units 16:32 16:32 16:32 WBC 8.6 (3.8-10.6) k/uL RBC 4.42 (4.30-5.90) m/uL Hgb 14.9 (13.0-17.5) gm/dL Hct 45.0 (39.0-53.0) % MCV 101.6 H (80.0-100.0) fL MCH 33.7 (25.0-35.0) pg MCHC 33.2 (31.0-37.0) g/dL RDW 13.0 (11.5-15.5) % Plt Count 178 (150-450) k/uL MPV 8.0 Neutrophils % 80 % Lymphocytes % 13 % Monocytes % 5 % Eosinophils % 1 % Basophils % 0 % Neutrophils # 6.9 (1.3-7.7) k/uL Lymphocytes # 1.1 (1.0-4.8) k/uL Monocytes # 0.4 (0-1.0) k/uL Eosinophils # 0.1 (0-0.7) k/uL Basophils # 0.0 (0-0.2) k/uL Macrocytosis Slight PT 11.6 (10.0-12.5) sec INR 1.1 (<1.2) APTT 22.8 (22.0-30.0) sec Sodium 139 (137-145) mmol/L Potassium 4.3 (3.5-5.1) mmol/L Chloride 109 H (98-107) mmol/L Carbon Dioxide 23 (22-30) mmol/L Anion Gap 7 mmol/L BUN 23 H (9-20) mg/dL Creatinine 0.89 (0.66-1.25) mg/dL Est GFR (CKD-EPI)AfAm 90 (>60 ml/min/1.73 sqM) Est GFR (CKD-EPI)NonAf 78 (>60 ml/min/1.73 sqM) Glucose 131 H (74-99) mg/dL Calcium 9.1 (8.4-10.2) mg/dL Total Bilirubin 1.0 (0.2-1.3) mg/dL AST 27 (17-59) U/L ALT 18 (4-49) U/L Alkaline Phosphatase 50 (38-126) U/L Creatine Kinase 123 (55-170) U/L Troponin I (0.000-0.034) ng/mL Total Protein 6.7 (6.3-8.2) g/dL Albumin 4.1 (3.5-5.0) g/dL 03/13/24 Range/Units 16:32 WBC (3.8-10.6) k/uL RBC (4.30-5.90) m/uL Hgb (13.0-17.5) gm/dL Hct (39.0-53.0) % MCV (80.0-100.0) fL MCH (25.0-35.0) pg MCHC (31.0-37.0) g/dL RDW (11.5-15.5) % Plt Count (150-450) k/uL MPV Neutrophils % % Lymphocytes % % Monocytes % % Eosinophils % % Basophils % % Neutrophils # (1.3-7.7) k/uL Lymphocytes # (1.0-4.8) k/uL Monocytes # (0-1.0) k/uL Eosinophils # (0-0.7) k/uL Basophils # (0-0.2) k/uL Macrocytosis PT (10.0-12.5) sec INR (<1.2) APTT (22.0-30.0) sec Sodium (137-145) mmol/L Potassium (3.5-5.1) mmol/L Chloride (98-107) mmol/L Carbon Dioxide (22-30) mmol/L Anion Gap mmol/L BUN (9-20) mg/dL Creatinine (0.66-1.25) mg/dL Est GFR (CKD-EPI)AfAm (>60 ml/min/1.73 sqM) Est GFR (CKD-EPI)NonAf (>60 ml/min/1.73 sqM) Glucose (74-99) mg/dL Calcium (8.4-10.2) mg/dL Total Bilirubin (0.2-1.3) mg/dL AST (17-59) U/L ALT (4-49) U/L Alkaline Phosphatase (38-126) U/L Creatine Kinase (55-170) U/L Troponin I <0.012 (0.000-0.034) ng/mL Total Protein (6.3-8.2) g/dL Albumin (3.5-5.0) g/dL Disposition Clinical Impression: Visual changes Disposition: HOME SELF-CARE Condition: Good Instructions (If sedation given, give patient instructions): Diplopia (ED) Is patient prescribed a controlled substance at d/c from ED?: No Referrals: Rosalio Moore DO [Primary Care Provider] - 1-2 days Time of Disposition: 19:53
[2024-03-13] MEDS: SODIUM CHLORIDE 0.9% 1,000 ML IV STA (16:43)
[2024-03-13 16:49] LABS: INR 1.1 (<1.2); Partial Thromboplastin Time 22.8 sec (22.0-30.0); Prothrombin Time 11.6 sec (10.0-12.5)
[2024-03-13 16:56] LABS: ALT 18 U/L (4-49); AST 27 U/L (17-59); African American GFR (CKD) 90 (>60 ml/min/1.73 sqM); Albumin 4.1 g/dL (3.5-5.0); Alkaline Phosphatase 50 U/L (38-126); Anion Gap 7 mmol/L; Blood Urea Nitrogen 23 mg/dL (9-20); Calcium 9.1 mg/dL (8.4-10.2); Carbon Dioxide 23 mmol/L (22-30); Chloride 109 mmol/L (98-107); Creatine Kinase 123 U/L (55-170); Glucose 131 mg/dL (74-99); Non-African American GFR(CKD) 78 (>60 ml/min/1.73 sqM); Potassium 4.3 mmol/L (3.5-5.1); Sodium 139 mmol/L (137-145); Total Protein 6.7 g/dL (6.3-8.2)
[2024-03-13 16:59] LABS: Basophils % (A) 0 %; Eosinophils # (A) 0.1 k/uL (0-0.7); Eosinophils % (A) 1 %; HGB 14.9 gm/dL (13.0-17.5); Lymphocytes # (A) 1.1 k/uL (1.0-4.8); Lymphocytes % (A) 13 %; MCH 33.7 pg (25.0-35.0); MCHC 33.2 g/dL (31.0-37.0); MCV 101.6 fL (80.0-100.0); Macrocytosis Slight; Monocytes # (A) 0.4 k/uL (0-1.0); Monocytes % (A) 5 %; Neutrophils # (A) 6.9 k/uL (1.3-7.7); Neutrophils % (A) 80 %; Platelet Count 178 k/uL (150-450); RBC 4.42 m/uL (4.30-5.90); WBC 8.6 k/uL (3.8-10.6)
--- NOTE | 2024-03-13 17:40 | XR ---
EXAMINATION TYPE: XR chest 2V DATE OF EXAM: 03/13/2024 COMPARISON: 03/06/2023 INDICATION: Altered mental status TECHNIQUE: Frontal and lateral views of the chest are obtained. FINDINGS: The heart size is normal. The pulmonary vasculature is normal. On lateral projection there is increased opacity over the lower lung field posteriorly. Correlate for infiltrate. Pneumonia should be considered. This is not clearly identified on the frontal projectio n. IMPRESSION: 1. Suspicion of a posterior infiltrate. Correlate for pneumonia. [facility], Workstation: [facility], 03/13/2024 5:38 PM
--- NOTE | 2024-03-13 17:59 | CT ---
EXAMINATION TYPE: CT brain wo con DATE OF EXAM: 03/13/2024 COMPARISON: INDICATION: CONFUSION DLP: 1150.8 mGycm, Automated exposure control for dose reduction was used. CONTRAST: None CT of the brain is performed utilizing 3 mm thick sections through the posterior fossa and 3 mm thick sections through the remaining calvarium. Study is performed within 24 hours of arrival to the hosp ital. No abnormal hyperdensity is present to suggest an acute intracranial hemorrhage. No mass lesion is evident. No acute infarcts are evident. Periventricular white matter hypodensity is present, likely on the bas is of chronic white matter ischemic changes. Ventricles and sulci are prominent for the patient age. Small bilateral maxillary sinus retention cysts or polyps are present. Paranasal sinuses and mastoid air cells within the [id number] are otherwise clear. IMPRESSION: 1. No acute intracranial process. Follow up MRI can be performed as clinically indicated. 2. Atrophy with chronic appearing periventricular white matter ischemic-type changes. [facility], Workstation: [facility], 03/13/2024 5:57 PM
--- NOTE | 2024-03-13 19:39 | CT ---
EXAMINATION TYPE: CT angio head neck DATE OF EXAM: 03/13/2024 HISTORY: None COMPARISON: 03/13/2024 CT DLP: 445.9 mGycm. Automated Exposure Control for Dose Reduction was Utilized. TECHNIQUE: CTA scan of the neck is performed with IV Contrast, patient injected with 65 mL of Isovue 370, axial images are obtained, coronal and sagittal reformatted images are reviewed. Three-D recons tructed images are created on an independent workstation and reviewed. Source images are reviewed. FINDINGS: Carotid/Vascular Structures: There is a 3 vessel arch. Common carotid arteries bifurcate into internal and external carotid arteries without significant marycarmen w limiting stenosis. Vertebral arteries are codominant. Internal carotid arteries and vertebral arteries are patent to the skull base. Cervical of [place]: Vertebral basilar system appears normal. Posterior cerebral vasculature is unrema rkable. Internal carotid arteries bifurcate normally into A1 and M1 segments. A2 segments are normal. M1and proximal middle cerebral artery branches appear normal. However, more distal right middle cereb ral artery vascular structures are less well-visualized contralateral side. Correlate the patient sym ptoms. However, the MIP reconstructed images appear symmetrical asymmetry within the gantry may be cr eating an artifact. The anterior communicating artery is patent. The right posterior communicating artery is patent. The left posterior communicating artery is absent. IMPRESSION: 1. No flow-limiting stenosis bilateral carotid bifurcations. 2. No definite abrupt cut off identified. Some asymmetry in the gantry may be creating artifact of mi ddle cerebral artery distal branch attenuation. Correlate for left-sided neurologic symptoms NASCET criteria was used in interpretation of this exam? [facility], Workstation: [facility], 03/13/2024 7:37 PM
[2024-03-13 20:08] VITALS: BP 143/93; PULSE 50; RESP 16; TEMP 98.7
== END 2024-03-13 20:08 | disposition home or self-care (01) ==
LOC: EC 15:48
CPT/HCPCS: 36415; 70450; 70496; 70498; 71046; 80053; 82550; 84484; 85025; 85610; 85730; 93005; 96360; 99284

== ENCOUNTER 2024-04-27 09:19 | Emergency (ER) | payer MEDICARE, BC ==
--- NOTE | 2024-04-27 09:31 | ED ---
Chest Pain HPI - General Chief Complaint: Chest Pain Stated Complaint: Chest Pain Time Seen by Provider: 04/27/24 09:30 Source: patient, family Mode of arrival: wheelchair Limitations: no limitations - History of Present Illness Initial Comments: 88-year-old male with past medical history of coronary artery disease with 5 stent placements, hyperlipidemia, hypertension who presents to the emergency department with left-sided chest pain. States his pain started around 6 AM. It woke him up from sleep. He describes it as a stabbing sensation in his left chest wall. He has associated belching. States that his symptoms feel similar to when he has his heartburn. He tried to drink some baking soda and took some Tums however the pain did not improve. States that he has had this pain several times in the past however typically goes away. He admits to a history of coronary disease. He attempted to take a nitro which also did not alleviate his symptoms. He denies fevers, chills or cough. No nausea or vomiting. No shortness of breath. Denies any additional symptoms to include abdominal pain, changes in his bowel or bladder habits. No other alleviating, precipitating modifying factors - Related Data Home Medications Medication Instructions Recorded Confirmed Aspirin 81 mg PO QAM 10/16/14 07/20/23 amLODIPine BESYLATE [Norvasc] 2.5 mg PO HS 04/09/18 07/20/23 Sucralfate [Carafate] 1 gm PO BID 04/27/18 07/20/23 hydroCHLOROthiazide 25 mg PO QAM 01/09/19 07/20/23 ALPRAZolam [Xanax] 0.25 mg PO DAILY PRN 05/28/20 07/17/23 Lansoprazole [Prevacid 24Hr] 15 mg PO BID 01/03/22 07/20/23 Clopidogrel [Plavix] 75 mg PO QAM 07/17/23 07/20/23 Naproxen Sodium [Aleve] 220 mg PO QID PRN 07/17/23 07/17/23 Nitroglycerin 0.4 mg PO DAILY 07/20/23 07/20/23 Previous Rx's Medication Instructions Recorded Atorvastatin [Lipitor] 40 mg PO HS 60 Days #60 tab 01/04/22 traMADol HCl [Ultram] 50 mg PO Q6H PRN #12 tab 07/20/23 Allergies Allergy/AdvReac Type Severity Reaction Status Date / Time amoxicillin trihydrate Allergy Itching/PASSED Verified 04/27/24 09:21 [From Augmentin] OUT diazepam [From Valium] Allergy Nausea & Verified 04/27/24 09:21 Vomiting guaifenesin [From Entex LA] Allergy Unknown Verified 04/27/24 09:21 hydromorphone HCl Allergy Nausea & Verified 04/27/24 09:21 [From Dilaudid] Vomiting levothyroxine Allergy Rash/Hives Verified 04/27/24 09:21 metoclopramide [From Reglan] Allergy Nausea & Verified 04/27/24 09:21 Vomiting morphine Allergy Nausea & Verified 04/27/24 09:21 Vomiting orphenadrine [From Norflex] Allergy can't Verified 04/27/24 09:21 urinate phenylephrine [From Entex LA] Allergy Unknown Verified 04/27/24 09:21 phenylpropanolamine Allergy Unknown Verified 04/27/24 09:21 [From Entex LA] potassium clavulanate Allergy Itching/PASSED Verified 04/27/24 09:21 [From Augmentin] OUT potassium iodide Allergy Unknown Verified 04/27/24 09:21 tolmetin [From Tolectin] Allergy itching/passed Verified 04/27/24 09:21 out albuterol [From Ventolin HFA] AdvReac Dizzy Verified 04/27/24 09:21 atorvastatin calcium AdvReac EYE "HAD Verified 04/27/24 09:21 [From Lipitor] BLOOD IN IT" cephalexin monohydrate AdvReac Nausea & Verified 04/27/24 09:21 [From Keflex] Vomiting codeine AdvReac SEVERE Verified 04/27/24 09:21 HEADACHE esomeprazole magnesium AdvReac SEVERE Verified 04/27/24 09:21 [From Nexium] HEADACHE propoxyphene AdvReac "TONGUE Verified 04/27/24 09:21 [From Darvocet-N] PEELED" Sulfa (Sulfonamide AdvReac Nausea & Verified 04/27/24 09:21 Antibiotics) Vomiting ANTIHISTAMINES AdvReac UNABLE TO Uncoded 04/27/24 09:21 URINATE Review of Systems ROS Statement: Those systems with pertinent positive or pertinent negative responses have been documented in the HPI. ROS Other: All systems not noted in ROS Statement are negative. Past Medical History Past Medical History: Coronary Artery Disease (CAD), Cancer, GERD/Reflux, Hyperlipidemia, Hypertension, Osteoarthritis (OA), Prostate Disorder, Syncope Additional Past Medical History / Comment(s): basal & squamous skin cancer, hiatal hernia, duodenal ulcer, constipation, diverticular disease, chronic low back pain, DJD, chronic R shoulder pain d/t torn rotator cuff, gout, BPH with surgery, vasovagal syncope, bronchitis, sinus problems, r eye blurry vision since cataract surg., increasing GERD lately-"can't eat after 6pm" PT, LEFT SHOULDER PAIN Last Myocardial Infarction Date:: 2016 History of Any Multi-Drug Resistant Organisms: None Reported Past Surgical History: Heart Catheterization, Heart Catheterization With Stent, Orthopedic Surgery, Prostate Surgery Additional Past Surgical History / Comment(s): PCI with stents (total of 5), L rotator cuff repair, R shoulder injection, skin cancer removed from face, hemorroidectomy, EGD, colonoscopy with rectal polypectomy, TURP, sinus surgery, bilateral cataract removals with lens implants. Past Anesthesia/Blood Transfusion Reactions: Previous Problems w/ Anesthesia Additional Past Anesthesia/Blood Transfusion Reaction / Comment(s): had hard time waking up post op x1 Date of Last Stent Placement:: 10/28/2005,10/17/2014, Past Psychological History: No Psychological Hx Reported Smoking Status: Never smoker Past Alcohol Use History: None Reported Past Drug Use History: None Reported - Past Family History Son(s) Family Medical History: Cancer Additional Family Medical History / Comment(s): Follicular lymphoma Mother Family Medical History: Deep Vein Thrombosis (DVT) Additional Family Medical History / Comment(s): DVTs in legs Father Family Medical History: COPD Additional Family Medical History / Comment(s): emphysema General Exam Limitations: no limitations General appearance: alert, in no apparent distress Head exam: Present: atraumatic, normocephalic, normal inspection Eye exam: Present: normal appearance, PERRL, EOMI. Absent: scleral icterus, conjunctival injection, periorbital swelling ENT exam: Present: normal exam, mucous membranes moist Neck exam: Present: normal inspection. Absent: tenderness, meningismus, lymphadenopathy Respiratory exam: Present: normal lung sounds bilaterally, chest wall tenderness (Palpation of the left chest wall). Absent: respiratory distress, wheezes, rales, rhonchi, stridor Cardiovascular Exam: Present: normal rhythm, bradycardia, normal heart sounds. Absent: systolic murmur, diastolic murmur, rubs, gallop, clicks GI/Abdominal exam: Present: soft, normal bowel sounds. Absent: distended, tenderness, guarding, rebound, rigid Extremities exam: Present: normal inspection, full ROM, normal capillary refill. Absent: tenderness, pedal edema, joint swelling, calf tenderness Back exam: Present: normal inspection Neurological exam: Present: alert, oriented X3, CN II-XII intact Psychiatric exam: Present: normal affect, normal mood Skin exam: Present: warm, dry, intact, normal color. Absent: rash Course Vital Signs 04/27/24 04/27/24 04/27/24 09:22 10:46 10:54 Temperature 97.5 F L 97.8 F Pulse Rate 58 L 74 70 Respiratory 20 18 18 Rate Blood Pressure 179/99 167/117 O2 Sat by Pulse 98 99 96 Oximetry 04/27/24 04/27/24 10:59 12:15 Temperature 98.1 F Pulse Rate 67 65 Respiratory 16 17 Rate Blood Pressure 110/90 151/99 O2 Sat by Pulse 96 Oximetry Chest Pain MDM - MDM Was pt. sent in by a medical professional or institution (, PA, PADDER, urgent care, hospital, or intermediate...) When possible be specific @ -No Did you speak to anyone other than the patient for history (EMS, parent, family, police, friend...)? What history was obtained from this source @ -Spoke with for history Did you review nursing and triage notes (agree or disagree)? Why? @ -I reviewed and agree with nursing and triage notes Were old charts reviewed (outside hosp., previous admission, EMS record, old EKG, old radiological studies, urgent care reports/EKG's, intermediate records)? Report findings @ -No old charts were reviewed Differential Diagnosis (chest pain, altered mental status, abdominal pain women, abdominal pain men, vaginal bleeding, weakness, fever, dyspnea, syncope, headache, dizziness, GI bleed, back pain, seizure, CVA, palpatations, mental health, musculoskeletal)? @ -Differential Chest Pain: Stable Angina, Unstable Angina, STEMI, NSTEMI Aortic Dissection, Pneumothorax, Musculoskeletal, Esophageal Spasm GERD, Cholecystitis, Pancreatitis, Zoster, this is not meant to be an all-inclusive list. EKG interpreted by me (3pts min.). @ -Yes and demonstrates sinus rhythm with PACs. Not convincing of A-fib. Rate of 68. QRS 91. QTc of 350. No acute ST segment elevations or depressions X-rays interpreted by me (1pt min.). @ -Yes and demonstrates no acute process CT interpreted by me (1pt min.). @ -None done U/S interpreted by me (1pt. min.). @ -None done What testing was considered but not performed or refused? (CT, X-rays, U/S, labs)? Why? @ -Echo however patient does not want to be admitted What meds were considered but not given or refused? Why? @ -None Did you discuss the management of the patient with other professionals (professionals i.e. , PA, PADDER, lab, RT, psych nurse, health and social care teacher, marketing planning manager, teacher, sales officer, watch caser)? Give summary @ -No Was smoking cessation discussed for >3mins.? @ -No Was critical care preformed (if so, how long)? @ -No Were there social determinants of health that impacted care today? How? (Homelessness, low income, unemployed, alcoholism, drug addiction, transportation, low edu. Level, literacy, decrease access to med. care, detention, rehab)? @ -No Was there de-escalation of care discussed even if they declined (Discuss DNR or withdrawal of care, Hospice)? DNR status @ -No What co-morbidities impacted this encounter? (DM, HTN, Smoking, COPD, CAD, Cancer, CVA, ARF, Chemo, Hep., AIDS, mental health diagnosis, sleep apnea, morbid obesity)? @ -Coronary artery disease Was patient admitted / discharged? Hospital course, mention meds given and route, prescriptions, significant lab abnormalities, going to OR and other pertinent info. @ -Upon arrival patient seen and evaluated in bed 6. Thorough history and physical exam was performed. IV access was established. Laboratory studies were conducted. Chest x-ray was performed. Patient was given a nitro. He does report that his symptoms are completely alleviated at this time. I did recommend admission however patient was refusing. Patient is aware of the risks of leaving including from disability and even . Patient is willing to accept these risks. His is at bedside and does agree with his decision. I did request to complete a second troponin for which the patient was agreeable. Second troponin was completed and continues to be negative. Patient adamantly continued to want a go home. He will be discharged. Instructed to follow-up with his primary care doctor. Return to the emergency department for any new or worsening symptoms. Patient discharged home in stable condition with a guarded prognosis Undiagnosed new problem with uncertain prognosis? @ -No Drug Therapy requiring intensive monitoring for toxicity (Heparin, Nitro, Insulin, Cardizem)? @ -No Were any procedures done? @ -No Diagnosis/symptom? @ -Acute chest pain Acute, or Chronic, or Acute on Chronic? @ -Acute Uncomplicated (without systemic symptoms) or Complicated (systemic symptoms)? @ -Complicated Side effects of treatment? @ -No Exacerbation, Progression, or Severe Exacerbation? @ -No Poses a threat to life or bodily function? How? (Chest pain, [place], [place], pneumonia, PE, COPD, DKA, ARF, appy, cholecystitis, CVA, Diverticulitis, Homicidal, Suicidal, threat to staff... and all critical care pts) @ -Possibly as patient does have chest pain in the setting of coronary disease Disposition Clinical Impression: Chest pain Disposition: HOME SELF-CARE Condition: Undetermined Instructions (If sedation given, give patient instructions): Chest Pain (ED) Additional Instructions: I recommended hospital admission. Please follow-up with your primary care doctor within 2 to 4 days. Please return to the emergency department should you have any new or worsening symptoms, or you are agreeable to hospital admission. Is patient prescribed a controlled substance at d/c from ED?: No Referrals: Rosalio Moore DO [Primary Care Provider] - 1-2 days Mihai Weems MD [STAFF PHYSICIAN] - 1-2 days Time of Disposition: 11:31
[2024-04-27 09:48] LABS: Basophils # (A) 0.1 k/uL (0-0.2); Basophils % (A) 1 %; Eosinophils # (A) 0.2 k/uL (0-0.7); Eosinophils % (A) 2 %; HCT 45.6 % (39.0-53.0); HGB 14.9 gm/dL (13.0-17.5); Lymphocytes # (A) 2.3 k/uL (1.0-4.8); Lymphocytes % (A) 22 %; MCH 32.2 pg (25.0-35.0); MCHC 32.8 g/dL (31.0-37.0); MCV 98.3 fL (80.0-100.0); Mean Platelet Volume 8.2; Monocytes # (A) 0.8 k/uL (0-1.0); Monocytes % (A) 8 %; Neutrophils # (A) 6.9 k/uL (1.3-7.7); Neutrophils % (A) 67 %; Platelet Count 208 k/uL (150-450); RBC 4.64 m/uL (4.30-5.90); RDW 13.2 % (11.5-15.5); WBC 10.3 k/uL (3.8-10.6)
[2024-04-27 10:02] LABS: INR 1.1 (<1.2); Partial Thromboplastin Time 23.6 sec (22.0-30.0); Prothrombin Time 11.7 sec (10.0-12.5)
[2024-04-27 10:12] LABS: ALT 17 U/L (4-49); AST 25 U/L (17-59); African American GFR (CKD) 88 (>60 ml/min/1.73 sqM); Albumin 4.4 g/dL (3.5-5.0); Alkaline Phosphatase 41 U/L (38-126); Anion Gap 5 mmol/L; Blood Urea Nitrogen 21 mg/dL (9-20); Calcium 9.6 mg/dL (8.4-10.2); Carbon Dioxide 30 mmol/L (22-30); Chloride 105 mmol/L (98-107); Glucose 112 mg/dL (74-99); Lipase 30 U/L (23-300); Magnesium 2.2 mg/dL (1.6-2.3); Non-African American GFR(CKD) 76 (>60 ml/min/1.73 sqM); Potassium 3.6 mmol/L (3.5-5.1); Sodium 140 mmol/L (137-145); Total Bilirubin 1.1 mg/dL (0.2-1.3); Total Protein 6.8 g/dL (6.3-8.2)
--- NOTE | 2024-04-27 10:28 | XR ---
EXAMINATION TYPE: XR chest 2V DATE OF EXAM: 04/27/2024 9:58 AM COMPARISON: Chest radiographs from 03/13/2024 CLINICAL INDICATION: Male, 88 years old with history of Chest Pain; [facility] TECHNIQUE: XR chest 2V Frontal and lateral views of the chest. FINDINGS: Lungs/Pleura: There is flattening of the diaphragm with increased lucency of the lungs. No evidence o f pneumothorax, pleural effusion or focal consolidation. Pulmonary vascularity: Unremarkable. Heart/mediastinum: Cardiomediastinal silhouette is unremarkable. Musculoskeletal: No acute osseous pathology. IMPRESSION: 1. No acute cardiopulmonary disease process. 2. COPD changes. [facility], , 04/27/2024 10:26 AM
[2024-04-27] MEDS: NITROGLYCERIN SL TABS 0.4 MG TAB SUBLINGUAL STA (10:55)
[2024-04-27 12:16] VITALS: BP 151/99; PULSE 65; RESP 17; TEMP 98.1
== END 2024-04-27 12:22 | disposition home or self-care (01) ==
LOC: EC 09:19
DX: G89.29 Other chronic pain (principal); R07.89 Other chest pain; I10 Essential (primary) hypertension; E78.5 Hyperlipidemia, unspecified; I25.10 Atherosclerotic heart disease of native coronary artery without angina pectoris; Z88.0 Allergy status to penicillin; Z88.1 Allergy status to other antibiotic agents; Z88.2 Allergy status to sulfonamides; Z88.5 Allergy status to narcotic agent; Z88.8 Allergy status to other drugs, medicaments and biological substances; Z95.5 Presence of coronary angioplasty implant and graft; Z79.02 Long term (current) use of antithrombotics/antiplatelets; Z79.82 Long term (current) use of aspirin; Z79.899 Other long term (current) drug therapy
CPT/HCPCS: 36415; 71046; 80053; 83690; 83735; 84484; 85025; 85610; 85730; 93005; 99285

== ENCOUNTER 2024-09-25 15:04 | Emergency (ER) | payer MEDICARE, BC ==
[2024-09-25 15:09] VITALS: RESP 18; TEMP 98.4
[2024-09-25 15:56] LABS: Basophils # (A) 0.04 10*3/uL (0.00-0.10); Basophils % (A) 0.3 %; Eosinophils # (A) 0.02 10*3/uL (0.04-0.35); Eosinophils % (A) 0.1 %; HCT 41.4 % (39.6-50.0); HGB 14.6 g/dL (13.0-17.0); Lymphocytes # (A) 1.33 10*3/uL (0.90-5.00); Lymphocytes % (A) 8.8 %; MCH 33.3 pg (27.0-32.0); MCHC 35.3 g/dL (32.0-37.0); MCV 94.5 fL (80.0-97.0); Monocytes # (A) 0.59 10*3/uL (0.20-1.00); Monocytes % (A) 3.9 %; Neutrophils # (A) 13.04 10*3/uL (1.80-7.70); Neutrophils % (A) 86.4 %; Platelet Count 187 10*3/uL (140-440); RBC 4.38 10*6/uL (4.40-5.60); RDW 13.5 % (11.5-14.5); WBC 15.09 10*3/uL (4.50-10.00)
--- NOTE | 2024-09-25 16:01 | XR ---
EXAMINATION TYPE: XR chest 2V DATE OF EXAM: 09/25/2024 3:56 PM COMPARISON: 04/27/2024 CLINICAL INDICATION: Male, 89 years old with history of Chest Pain, , TECHNIQUE: PA and lateral views FINDINGS: Heart mildly enlarged. Diffuse interstitial opacity. Hyperinflation. No consolidation or pleural effu randal. IMPRESSION: COPD with mild cardiomegaly. Increased interstitial density. Correlate to exclude mild pulmonary vasc ular congestion. [facility], Workstation: [email or web address], 09/25/2024 3:59 PM
[2024-09-25] MEDS: ASPIRIN 81 MG PO STA (16:02)
[2024-09-25] MEDS: SODIUM CHLORIDE 0.9% 1,000 ML IV STA (16:02)
[2024-09-25 16:06] LABS: INR 1.1 (<1.2); Partial Thromboplastin Time 23.5 sec (22.0-30.0); Prothrombin Time 11.9 sec (10.0-12.5)
[2024-09-25 16:07] LABS: ALT 21 U/L (4-49); AST 25 U/L (17-59); African American GFR (CKD) 82 (>60 ml/min/1.73 sqM); Alkaline Phosphatase 44 U/L (38-126); Anion Gap 9 mmol/L; Blood Urea Nitrogen 25 mg/dL (9-20); Calcium 10.1 mg/dL (8.4-10.2); Carbon Dioxide 26 mmol/L (22-30); Chloride 103 mmol/L (98-107); Glucose 109 mg/dL (74-99); Magnesium 1.9 mg/dL (1.6-2.3); Non-African American GFR(CKD) 71 (>60 ml/min/1.73 sqM); Potassium 3.5 mmol/L (3.5-5.1); Sodium 138 mmol/L (137-145); Total Bilirubin 1.4 mg/dL (0.2-1.3); Total Protein 6.4 g/dL (6.3-8.2)
--- NOTE | 2024-09-25 16:54 | ED ---
General Adult HPI - General Source: patient, RN notes reviewed, old records reviewed Mode of arrival: ambulatory Limitations: no limitations <Vel Barros - Last Filed: 09/25/24 16:50> <Samm Simon - Last Filed: 09/25/24 19:09> - General Chief complaint: Chest Pain Stated complaint: chest pain Time Seen by Provider: 09/25/24 16:44 - History of Present Illness Initial comments: Patient is a 89-year-old male presents emergency department complaining of chest pain. Started approximate hour prior to arrival. Has a history remarkable for 5 cardiac stents, as well as an arrhythmia that was eventually diagnosed as sinus rhythm with PACs. Patient is not on blood thinners. States the pain is on the left side of his chest. Is reproducible on palpation. Not reproducible with movement. Denies any shortness of breath, lightheadedness, nausea, vomiting, diaphoresis. Describes the pain as a 0-1 out of 10 at this time. Presents for further evaluation at this time. States the pain was worse earlier which is why he was brought here by his . (Vel Barros) - Related Data Home Medications Medication Instructions Recorded Confirmed hydroCHLOROthiazide 25 mg PO DAILY 01/09/19 09/25/24 ALPRAZolam [Xanax] 0.25 mg PO DAILY PRN 05/28/20 09/25/24 Lansoprazole [Prevacid 24Hr OTC] 15 mg PO BID 01/03/22 09/25/24 Clopidogrel [Plavix] 75 mg PO DAILY 07/17/23 09/25/24 Atorvastatin [Lipitor] 20 mg PO HS 09/25/24 09/25/24 Ciclopirox Olamine Cream [Ciclodan] 1 applic TOPICAL DAILY PRN 09/25/24 09/25/24 Cyanocobalamin (Vitamin B-12) 2,500 mcg PO HS 09/25/24 09/25/24 [Vitamin B-12] Levothyroxine Sodium [Synthroid] 50 mcg PO DAILY 09/25/24 09/25/24 Multivitamins, Thera [Multivitamin 1 tab PO DAILY 09/25/24 09/25/24 (formulary)] Nitroglycerin Sl Tabs [Nitrostat] 0.4 mg SUBLINGUAL Q5M PRN 09/25/24 09/25/24 Prevagen 1 cap PO DAILY 09/25/24 09/25/24 hydrOXYzine HCL [Atarax] 10 mg PO TID PRN 09/25/24 09/25/24 predniSONE 5 mg PO DAILY 09/25/24 09/25/24 Allergies Allergy/AdvReac Type Severity Reaction Status Date / Time amoxicillin trihydrate Allergy Itching/PASSED Verified 09/25/24 16:52 [From Augmentin] OUT diazepam [From Valium] Allergy Nausea & Verified 09/25/24 16:52 Vomiting guaifenesin [From Entex [place]] Allergy Unknown Verified 09/25/24 16:52 hydromorphone HCl Allergy Nausea & Verified 09/25/24 16:52 [From Dilaudid] Vomiting levothyroxine Allergy Rash/Hives Verified 09/25/24 16:52 metoclopramide [From Reglan] Allergy Nausea & Verified 09/25/24 16:52 Vomiting morphine Allergy Nausea & Verified 09/25/24 16:52 Vomiting orphenadrine [From Norflex] Allergy can't Verified 09/25/24 16:52 urinate phenylephrine [From Entex LA] Allergy Unknown Verified 09/25/24 16:52 phenylpropanolamine Allergy Unknown Verified 09/25/24 16:52 [From Entex LA] potassium clavulanate Allergy Itching/PASSED Verified 09/25/24 16:52 [From Augmentin] OUT potassium iodide Allergy Unknown Verified 09/25/24 16:52 tolmetin [From Tolectin] Allergy itching/passed Verified 09/25/24 16:52 out albuterol [From Ventolin HFA] AdvReac Dizzy Verified 09/25/24 16:52 atorvastatin calcium AdvReac EYE "HAD Verified 09/25/24 16:52 [From Lipitor] BLOOD IN IT" cephalexin monohydrate AdvReac Nausea & Verified 09/25/24 16:52 [From Keflex] Vomiting codeine AdvReac SEVERE Verified 09/25/24 16:52 HEADACHE esomeprazole magnesium AdvReac SEVERE Verified 09/25/24 16:52 [From Nexium] HEADACHE propoxyphene AdvReac "TONGUE Verified 09/25/24 16:52 [From Darvocet-N] PEELED" Sulfa (Sulfonamide AdvReac Nausea & Verified 09/25/24 16:52 Antibiotics) Vomiting ANTIHISTAMINES AdvReac UNABLE TO Uncoded 09/25/24 16:52 URINATE Review of Systems ROS Other: All systems not noted in ROS Statement are negative. <Vel Barros - Last Filed: 09/25/24 16:50> ROS Other: All systems not noted in ROS Statement are negative. <Samm Simon - Last Filed: 09/25/24 19:09> ROS Statement: Those systems with pertinent positive or pertinent negative responses have been documented in the HPI. Review of Systems: CONST: Denies fever EYES: Denies blurry vision ENT: Denies nasal congestion C/V: Endorses chest wall pain RESP: Denies shortness of breath GI: Denies abdominal pain : Denies dysuria SKIN: Denies rash. MSK: Denies joint pain. NEURO: Denies headache (Vel Barros) Past Medical History Past Medical History: Coronary Artery Disease (CAD), Cancer, GERD/Reflux, Hyperlipidemia, Hypertension, Osteoarthritis (OA), Prostate Disorder, Syncope Additional Past Medical History / Comment(s): basal & squamous skin cancer, hiat al hernia, duodenal ulcer, constipation, diverticular disease, chronic low back pain, DJD, chronic R shoulder pain d/t torn rotator cuff, gout, BPH with surgery, vasovagal syncope, bronchitis, sinus problems, r eye blurry vision since cataract surg., increasing GERD lately-"can't eat after 6pm" PT, LEFT SHOULDER PAIN Last Myocardial Infarction Date:: 2016 History of Any Multi-Drug Resistant Organisms: None Reported Past Surgical History: Heart Catheterization, Heart Catheterization With Stent, Orthopedic Surgery, Prostate Surgery Additional Past Surgical History / Comment(s): PCI with stents (total of 5), L rotator cuff repair, R shoulder injection, skin cancer removed from face, hemorroidectomy, EGD, colonoscopy with rectal polypectomy, TURP, sinus surgery, bilateral cataract removals with lens implants. Past Anesthesia/Blood Transfusion Reactions: Previous Problems w/ Anesthesia Additional Past Anesthesia/Blood Transfusion Reaction / Comment(s): had hard time waking up post op x1 Date of Last Stent Placement:: 10/28/2005,10/17/2014, Past Psychological History: No Psychological Hx Reported Smoking Status: Never smoker Past Alcohol Use History: None Reported Past Drug Use History: None Reported - Past Family History Son(s) Family Medical History: Cancer Additional Family Medical History / Comment(s): Follicular lymphoma Mother Family Medical History: Deep Vein Thrombosis (DVT) Additional Family Medical History / Comment(s): DVTs in legs Father Family Medical History: COPD Additional Family Medical History / Comment(s): emphysema <Vel Barros - Last Filed: 09/25/24 16:50> General Exam Limitations: no limitations <Vel Barros - Last Filed: 09/25/24 16:50> - General Exam Comments Initial Comments: General: Appears in no acute distress. HEAD: Normal with no signs of head trauma. EYES: PERRLA, EOMI, conjunctiva normal, no discharge. ENT: Hearing grossly intact, normal oropharynx. RESPIRATORY: Clear breath sounds bilaterally. No wheezes, rales, or rhonchi. C/V: Regular rate and rhythm. S1 and S2 auscultated, no edema, peripheral pulses 2+ and intact throughout. Reproducible chest wall pain. ABD: Abd is soft, nontender, nondistended EXT: Normal range of motion, no obvious deformity SKIN: No rashes or lesions observed on exposed skin. NEURO: Alert and oriented x 4. (Vel Barros) Course Vital Signs 09/25/24 09/25/24 09/25/24 15:05 15:50 15:52 Temperature 98.4 F Pulse Rate 62 75 Pulse Rate [ 75 Needle Valve Operator ] Respiratory 18 18 Rate Blood Pressure 145/103 128/85 O2 Sat by Pulse 96 98 Oximetry 09/25/24 18:03 Temperature Pulse Rate 86 Pulse Rate [ Needle Valve Operator ] Respiratory 18 Rate Blood Pressure 136/84 O2 Sat by Pulse 98 Oximetry Medical Decision Making - Lab Data Result diagrams: 09/25/24 15:47 09/25/24 15:47 - EKG Data -: EKG Interpreted by Me <Vel Barros - Last Filed: 09/25/24 16:50> - Lab Data Result diagrams: 09/25/24 15:47 09/25/24 15:47 <Samm Simon - Last Filed: 09/25/24 19:09> - Medical Decision Making Was pt. sent in by a medical professional or institution (, PA, LICENSING AND REGISTRATION DIRECTOR, urgent care, hospital, or fdc...) When possible be specific @ -No Did you speak to anyone other than the patient for history (EMS, parent, family, police, friend...)? What history was obtained from this source @ -No Did you review nursing and triage notes (agree or disagree)? Why? @ -I reviewed and agree with nursing and triage notes Were old charts reviewed (outside hosp., previous admission, EMS record, old EKG, old radiological studies, urgent care reports/EKG's, fdc records)? Report findings @ -Old charts reviewed including EKG from April 2024 with no significant acute change when compared with today's EKG. Differential Diagnosis (chest pain, altered mental status, abdominal pain women, abdominal pain men, vaginal bleeding, weakness, fever, dyspnea, syncope, headache, dizziness, GI bleed, back pain, seizure, CVA, palpatations, mental health, musculoskeletal)? @ -Differential Chest Pain: Stable Angina, Unstable Angina, STEMI, NSTEMI Aortic Dissection, Pneumothorax, Musculoskeletal, Esophageal Spasm GERD, Cholecystitis, Pancreatitis, Zoster, this is not meant to be an all-inclusive list. EKG interpreted by me (3pts min.). @ -As above X-rays interpreted by me (1pt min.). @ -Chest x-ray reveals no obvious acute cardiopulmonary process. Possible mild pulmonary vascular congestion however patient has no symptoms. CT interpreted by me (1pt min.). @ -None done U/S interpreted by me (1pt. min.). @ -None done What testing was considered but not performed or refused? (CT, X-rays, U/S, labs)? Why? @ -None What meds were considered but not given or refused? Why? @ -None Did you discuss the management of the patient with other professionals (professionals i.e. , PA, LICENSING AND REGISTRATION DIRECTOR, lab, RT, psych nurse, school social worker, nitrogen operator, teacher, safety instruction police officer, case management director)? Give summary @ -No Was smoking cessation discussed for >3mins.? @ -No Was critical care preformed (if so, how long)? @ -No Were there social determinants of health that impacted care today? How? (Homelessness, low income, unemployed, alcoholism, drug addiction, transportation, low edu. Level, literacy, decrease access to med. care, residential, rehab)? @ -No Was there de-escalation of care discussed even if they declined (Discuss DNR or withdrawal of care, Hospice)? DNR status @ -No What co-morbidities impacted this encounter? (DM, HTN, Smoking, COPD, CAD, Cancer, CVA, ARF, Chemo, Hep., AIDS, mental health diagnosis, sleep apnea, morbid obesity)? @ -Multiple cardiac stents Was patient admitted / discharged? Hospital course, mention meds given and route, prescriptions, significant lab abnormalities, going to OR and other pertinent info. @ -Patient presents emergency department for chest pain. Seems to be chest wall pain but began with exertion. Has a history of multiple cardiac stents. Pain is nearly resolved at this time. We will obtain cardiac workup. He was in agreement this plan. Given 324 mg of aspirin and IV fluids. Vitals are within acceptable limits. Laboratory studies are remarkable for troponin of 0.019. Patient has a likely reactive leukocytosis of 15 with no obvious source of infection. Chest x-ray shows no obvious acute cardiopulmonary process. Possible pulmonary vascular ingestion that is very mild however patient has no dyspnea or shortness of breath. The chest pain is reproducible on palpation at a specific point on his left chest wall. I did discuss with the patient options. We decided that he as he has chest wall pain, and he would like to go home we will obtain a second 3-hour troponin for screening purposes. If this is negative then he will be discharged. He does not want to stay in the hospital. He was in agreement this plan. Patient signed out to Dr. Simon pending results of laboratory study. Undiagnosed new problem with uncertain prognosis? @ -No Drug Therapy requiring intensive monitoring for toxicity (Heparin, Nitro, Insulin, Cardizem)? @ -No Were any procedures done? @ -No (Vel Barros) Care signed out to me by previous shift physician, Dr. Barros. Briefly, patient here for atypical chest pain. Does have cardiac history. Patient expressed desire to be discharged safely. Plan was to follow-up with second troponin. Troponin resulted found to be less than initial troponin. Patient for discharge advised close follow-up with primary care doctor and guide winder. Diagnosis/symptom? @ -Chest pain Acute, or Chronic, or Acute on Chronic? @ -Default Uncomplicated (without systemic symptoms) or Complicated (systemic symptoms)? @ -Default Side effects of treatment? @ -None Exacerbation, Progression, or Severe Exacerbation] @ -No Poses a threat to life or bodily function? @ -No (Samm Simon) - Lab Data Lab Results 09/25/24 09/25/24 09/25/24 Range/Units 15:47 15:47 15:47 WBC 15.09 H (4.50-10.00) 10*3/uL RBC 4.38 L (4.40-5.60) 10*6/uL Hgb 14.6 (13.0-17.0) g/dL Hct 41.4 (39.6-50.0) % MCV 94.5 (80.0-97.0) fL MCH 33.3 H (27.0-32.0) pg MCHC 35.3 (32.0-37.0) g/dL Plt Count 187 (140-440) 10*3/uL MPV 10.0 (9.5-12.2) fL Immature Gran % (Auto) 0.5 % Neutrophils % 86.4 % Lymphocytes % 8.8 % Monocytes % 3.9 % Eosinophils % 0.1 % Basophils % 0.3 % Immature Gran # 0.07 H (0.00-0.04) 10*3/uL Neutrophils # 13.04 H (1.80-7.70) 10*3/uL Lymphocytes # 1.33 (0.90-5.00) 10*3/uL Monocytes # 0.59 (0.20-1.00) 10*3/uL Eosinophils # 0.02 L (0.04-0.35) 10*3/uL Basophils # 0.04 (0.00-0.10) 10*3/uL PT 11.9 (10.0-12.5) sec INR 1.1 (<1.2) APTT 23.5 (22.0-30.0) sec Sodium 138 (137-145) mmol/L Potassium 3.5 (3.5-5.1) mmol/L Chloride 103 (98-107) mmol/L Carbon Dioxide 26 (22-30) mmol/L Anion Gap 9 mmol/L BUN 25 H (9-20) mg/dL Creatinine 0.97 (0.66-1.25) mg/dL Est GFR (CKD-EPI)AfAm 82 (>60 ml/min/1.73 sqM) Est GFR (CKD-EPI)NonAf 71 (>60 ml/min/1.73 sqM) Glucose 109 H (74-99) mg/dL Calcium 10.1 (8.4-10.2) mg/dL Magnesium 1.9 (1.6-2.3) mg/dL Total Bilirubin 1.4 H (0.2-1.3) mg/dL AST 25 (17-59) U/L ALT 21 (4-49) U/L Alkaline Phosphatase 44 (38-126) U/L Troponin I (0.000-0.034) ng/mL Total Protein 6.4 (6.3-8.2) g/dL Albumin 4.0 (3.5-5.0) g/dL 09/25/24 09/25/24 Range/Units 15:47 18:39 WBC (4.50-10.00) 10*3/uL RBC (4.40-5.60) 10*6/uL Hgb (13.0-17.0) g/dL Hct (39.6-50.0) % MCV (80.0-97.0) fL MCH (27.0-32.0) pg MCHC (32.0-37.0) g/dL Plt Count (140-440) 10*3/uL MPV (9.5-12.2) fL Immature Gran % (Auto) % Neutrophils % % Lymphocytes % % Monocytes % % Eosinophils % % Basophils % % Immature Gran # (0.00-0.04) 10*3/uL Neutrophils # (1.80-7.70) 10*3/uL Lymphocytes # (0.90-5.00) 10*3/uL Monocytes # (0.20-1.00) 10*3/uL Eosinophils # (0.04-0.35) 10*3/uL Basophils # (0.00-0.10) 10*3/uL PT (10.0-12.5) sec INR (<1.2) APTT (22.0-30.0) sec Sodium (137-145) mmol/L Potassium (3.5-5.1) mmol/L Chloride (98-107) mmol/L Carbon Dioxide (22-30) mmol/L Anion Gap mmol/L BUN (9-20) mg/dL Creatinine (0.66-1.25) mg/dL Est GFR (CKD-EPI)AfAm (>60 ml/min/1.73 sqM) Est GFR (CKD-EPI)NonAf (>60 ml/min/1.73 sqM) Glucose (74-99) mg/dL Calcium (8.4-10.2) mg/dL Magnesium (1.6-2.3) mg/dL Total Bilirubin (0.2-1.3) mg/dL AST (17-59) U/L ALT (4-49) U/L Alkaline Phosphatase (38-126) U/L Troponin I 0.019 0.015 (0.000-0.034) ng/mL Total Protein (6.3-8.2) g/dL Albumin (3.5-5.0) g/dL - EKG Data EKG Comments: 12-lead Electrocardiogram Interpretation Note EKG was reviewed and interpreted by myself. 12-lead ECG performed at 1525 is interpreted by me as revealing normal sinus rhythm with PACs at a rate of 79 beats per minute. [place] is normal. QRS duration is 97 ms, QTc is 424 ms.. There were no ST or T wave abnormalities to suggest myocardial ischemia or injury. R wave progression across the precordium was satisfactory. By my interpretation this EKG is non-diagnostic for acute ischemia. Compared with EKG from April 2024 with no significant change. (Vel Barros) Disposition <Vel Barros - Last Filed: 09/25/24 16:50> Is patient prescribed a controlled substance at d/c from ED?: No Time of Disposition: 19:09 <Samm Simon - Last Filed: 09/25/24 19:09> Clinical Impression: Chest pain Disposition: HOME SELF-CARE Condition: Fair Instructions (If sedation given, give patient instructions): Chest Pain (ED) Referrals: Rosalio Moore DO [Primary Care Provider] - 1-2 days
[2024-09-25 19:16] VITALS: BP 138/79; PULSE 80
== END 2024-09-25 19:16 | disposition home or self-care (01) ==
LOC: EC 15:04
DX: R07.9 Chest pain, unspecified (principal); Z95.5 Presence of coronary angioplasty implant and graft; Z88.0 Allergy status to penicillin; Z88.1 Allergy status to other antibiotic agents; Z88.2 Allergy status to sulfonamides; Z88.5 Allergy status to narcotic agent; Z88.6 Allergy status to analgesic agent; Z88.9 Allergy status to unspecified drugs, medicaments and biological substances; Z91.048 Other nonmedicinal substance allergy status; Z88.8 Allergy status to other drugs, medicaments and biological substances
CPT/HCPCS: 36415; 71046; 80053; 83735; 84484; 85025; 85610; 85730; 96360; 99285